=== PATIENT | female | born 1955 | race Caucasian/White ===

== ENCOUNTER 2018-03-15 21:30 | Inpatient (IN) | payer MEDICARE, OTHER ==
[~2018-03-15] VITALS: Ht 165.1 cm; Wt 100.0 kg
[~2018-03-15 21:30] MED LIST changes: -ALBU8.5H8 IH; -BUDESONIDE 0.25 MG/2 ML AMPUL.NEB IH SCH; -CARI6CAP PO; -CLON2TAB11 PO; -LAMO100T40 PO; -LEVO50TA8 PO; -LEVO88TA2 PO; -LORazepam 1 MG tablet PO PRN; -ONDA4TAB12 PO; -QUET200T30 PO; -ROPI2TAB4 PO; -SUMAtriptan 25 MG tablet PO PRN; -TRAM50TA2 PO; -VRAYLAR 6 MG PO ONE; -VRAYLAR 6 MG PO SCH; -albuterol 2.5 MG/3 ML nebule NEB SCH; -clonazePAM 0.5mg tablet PO ONE; -clonazePAM 0.5mg tablet PO SCH; -duloxetine 30mg CAPSULE.DR PO SCH; -levoTHYROXINE 25mcg tablet PO SCH; -quetiapine 100mg tablet PO ONE; -quetiapine 100mg tablet PO SCH; -topiramate 25mg tablet PO ONE; -topiramate 25mg tablet PO SCH
[2018-03-15] MEDS ORDERED: CARI6CAP PO (22:25)
[2018-03-15] MEDS ORDERED: QUET-1 PO (22:25)
[2018-03-15] MEDS ORDERED: LAMO100T40 PO (22:38)
[2018-03-15] MEDS ORDERED: ROPI2TAB4 PO (22:38)
[2018-03-15] MEDS ORDERED: HYDR-3686 PO (22:38)
[2018-03-15] MEDS ORDERED: SUMAtriptan 25 MG tablet PO PRN (22:55)
[2018-03-15] MEDS ORDERED: quetiapine 100mg tablet PO PRN (23:00)
[2018-03-15 23:35] VITALS: BP 146/76
[2018-03-15] MEDS ORDERED: clonazePAM 0.5mg tablet PO ONE (23:40)
[2018-03-15] MEDS ORDERED: VRAYLAR 6 MG PO ONE (23:40)
[2018-03-15] MEDS ORDERED: topiramate 25mg tablet PO ONE (23:45)
[2018-03-15] MEDS ORDERED: ROPINIRole 1mg tablet PO ONE (23:45)
[2018-03-16] MEDS: VRAYLAR 6 MG PO SCH (00:02)
[2018-03-16] MEDS: levoTHYROXINE 25mcg tablet PO SCH (07:39)
[2018-03-16 08:00] VITALS: BP 144/77
[2018-03-16] MEDS ORDERED: duloxetine 30mg CAPSULE.DR PO SCH (08:00)
[2018-03-16] MEDS: BUDESONIDE 0.25 MG/2 ML AMPUL.NEB IH SCH ×2 (08:13→21:00)
[2018-03-16] MEDS: albuterol 2.5 MG/3 ML nebule NEB SCH ×4 (08:13→19:00)
[2018-03-16] MEDS ORDERED: ONDA4TAB12 PO (08:28)
[2018-03-16] MEDS ORDERED: QUET-1 PO ×3 (08:28)
[2018-03-16] MEDS: ROPINIRole 1mg tablet PO SCH ×2 (08:58→20:40)
[2018-03-16] MEDS: topiramate 25mg tablet PO SCH ×2 (08:59→20:40)
[2018-03-16] MEDS ORDERED: ondansetron 4mg rapidly disintigrating tab PO PRN (11:45)
[2018-03-16] MEDS: quetiapine 100mg tablet PO SCH ×2 (14:26→20:39)
[2018-03-16] MEDS ORDERED: acetaminophen 325mg tablet PO PRN (14:40)
[2018-03-16] MEDS: acetaminophen 325mg tablet PO PRN (15:44)
[2018-03-16] MEDS: traMADol 50MG tablet PO PRN (15:45)
[2018-03-16 20:00] VITALS: BP 106/52
[2018-03-16] MEDS ORDERED: PARoxetine 10mg tablet PO SCH (21:00)
[2018-03-16] MEDS ORDERED: clonazePAM 0.5mg tablet PO SCH (21:00)
[2018-03-16] MEDS: clonazePAM 0.5mg tablet PO SCH (21:14)
[2018-03-17] MEDS: albuterol 2.5 MG/3 ML nebule NEB SCH (07:00)
[2018-03-17] MEDS: levoTHYROXINE 25mcg tablet PO SCH (07:12)
[2018-03-17] MEDS: BUDESONIDE 0.25 MG/2 ML AMPUL.NEB IH SCH (07:48)
[2018-03-17 08:00] VITALS: BP 112/73
[2018-03-17] MEDS ORDERED: duloxetine 30mg CAPSULE.DR PO SCH (08:00)
[2018-03-17] MEDS: ROPINIRole 1mg tablet PO SCH ×2 (08:20→21:04)
[2018-03-17] MEDS: quetiapine 100mg tablet PO SCH ×3 (08:21→21:05)
[2018-03-17] MEDS: topiramate 25mg tablet PO SCH ×2 (08:21→21:04)
[2018-03-17] MEDS: traMADol 50MG tablet PO PRN (08:21)
[2018-03-17] MEDS ORDERED: albuterol 2.5 MG/3 ML nebule NEB PRN ×2 (10:15→10:20)
[2018-03-17] MEDS ORDERED: albuterol 2.5 MG/3 ML nebule NEB SCH (10:20)
[2018-03-17] MEDS ORDERED: BUDESONIDE 0.25 MG/2 ML AMPUL.NEB IH PRN (10:20)
[2018-03-17 19:00] VITALS: BP 115/58
[2018-03-17] MEDS: acetaminophen 325mg tablet PO PRN (19:35)
[2018-03-17] MEDS: clonazePAM 0.5mg tablet PO SCH (21:04)
[2018-03-17] MEDS: VRAYLAR 6 MG PO SCH (21:05)
[2018-03-18] MEDS ORDERED: duloxetine 30mg CAPSULE.DR PO SCH (08:00)
[2018-03-18] MEDS: levoTHYROXINE 25mcg tablet PO SCH (08:01)
[2018-03-18] MEDS: ROPINIRole 1mg tablet PO SCH (08:01)
[2018-03-18] MEDS: traMADol 50MG tablet PO PRN (08:02)
[2018-03-18] MEDS: quetiapine 100mg tablet PO SCH ×2 (08:02→14:03)
[2018-03-18] MEDS: topiramate 25mg tablet PO SCH (08:02)
[2018-03-18 08:45] VITALS: BP 108/72
[2018-03-18 08:46] LABS: CHOL/HDL RATIO 4.5 (0.00-4.99); CHOLESTEROL 218 MG/DL (0-200); HDL CHOLESTEROL 48 MG/DL (35-60); LDL CHOLESTEROL 143 MG/DL (50-100); TRIGLYCERIDES 180 MG/DL (20-135)
[2018-03-18] MEDS ORDERED: QUET-1 PO (14:07)
[2018-03-18] MEDS ORDERED: ADV50250 IH (14:10)
[2018-03-18] MEDS ORDERED: LEVO88TA2 PO (14:12)
[2018-03-18] MEDS ORDERED: LEVO50TA8 PO (14:14)
[2018-03-18] MEDS ORDERED: ALBU8.5H8 IH (14:16)
[2018-03-18] MEDS ORDERED: TRAM50TA2 PO (14:19)
[2018-03-18] MEDS ORDERED: QUET200T30 PO (14:19)
[2018-03-18] MEDS ORDERED: TOPI50TA24 PO (14:19)
[2018-03-18] MEDS ORDERED: CLON2TAB11 PO (14:19)
== END 2018-03-18 14:35 | disposition home or self-care (01) | DRG 885 ==
LOC: ED HOLD 21:30 → ADULT MH 22:05
PROVIDERS: ADMIT Psychiatry & Neurology Psychiatry; ATTEND Psychiatry & Neurology Psychiatry
DX: F25.1 Schizoaffective disorder, depressive type (principal); R45.851 Suicidal ideations; E03.9 Hypothyroidism, unspecified; F44.81 Dissociative identity disorder; E66.9 Obesity, unspecified; E78.5 Hyperlipidemia, unspecified; F31.9 Bipolar disorder, unspecified; Z96.653 Presence of artificial knee joint, bilateral; G25.81 Restless legs syndrome; S30.0XXA Contusion of lower back and pelvis, initial encounter; G43.909 Migraine, unspecified, not intractable, without status migrainosus; M19.90 Unspecified osteoarthritis, unspecified site; X58.XXXA Exposure to other specified factors, initial encounter; F41.9 Anxiety disorder, unspecified; J44.9 Chronic obstructive pulmonary disease, unspecified; Z90.5 Acquired absence of kidney; Z91.041 Radiographic dye allergy status; Z91.010 Allergy to peanuts; Z88.0 Allergy status to penicillin; Z88.8 Allergy status to other drugs, medicaments and biological substances; Z91.018 Allergy to other foods; Z23 Encounter for immunization; Z79.890 Hormone replacement therapy; Z79.899 Other long term (current) drug therapy; Z85.528 Personal history of other malignant neoplasm of kidney; Z68.36 Body mass index [BMI] 36.0-36.9, adult; Y93.89 Activity, other specified; Y92.89 Other specified places as the place of occurrence of the external cause; Y99.8 Other external cause status
CPT/HCPCS: 36415; 80061; 84443; 87070; 94640; 94760; Q2037

== ENCOUNTER → 2018-03-15 | Emergency (ER) | payer MEDICARE, OTHER ==
[~2018-03-15] VITALS: Ht 195.6 cm; Wt 95.0 kg
[~2018-03-15] MED LIST: ADV50250 IH; ALBU8.5H8 IH; BUDESONIDE 0.25 MG/2 ML AMPUL.NEB IH SCH; CARI6CAP; CARI6CAP PO; CLON-527 PO; CLON-528 PO; CLON2TAB11 PO; DULO-31 PO; ELET40TA10 PO; EZET1TAB29 PO; FLUT1DIS4 INH; HYDR-3686 PO; LAMO100T40 PO; LAMO200T31 PO; LEVO50TA PO; LEVO50TA67 PO; LEVO50TA8 PO; LEVO88TA2 PO; LORazepam 1 MG tablet PO PRN; MONT10TA21 PO; ONDA4TAB12 PO; QUET-1 PO; QUET200T30 PO; ROPI0.5T2 PO; ROPI1TAB4 PO; ROPI2TAB4 PO; SUMAtriptan 25 MG tablet PO PRN; TIOT18CA7 IH; TOP100T PO; TOPI50TA24 PO; TRAM50TA2 PO; VRAYLAR 6 MG PO ONE; VRAYLAR 6 MG PO SCH; ZOF4T PO; ZOLP12.531 PO; albuterol 2.5 MG/3 ML nebule NEB SCH; clonazePAM 0.5mg tablet PO ONE; clonazePAM 0.5mg tablet PO SCH; duloxetine 30mg CAPSULE.DR PO SCH; levoTHYROXINE 25mcg tablet PO SCH; quetiapine 100mg tablet PO ONE; quetiapine 100mg tablet PO SCH; topiramate 25mg tablet PO ONE; topiramate 25mg tablet PO SCH
[2018-03-15] MEDS: LORazepam 1 MG tablet PO ONE (13:20)
[2018-03-15 13:27] LABS: URINE HCG NEGATIVE (NEG)
[2018-03-15 13:38] LABS: URINE AMPHETAMINE SCREEN NEGATIVE (Neg); URINE BARBITUATE SCREEN NEGATIVE (Neg); URINE BENZODIAZEPINES SCREEN NEGATIVE (Neg); URINE CANNABINOID SCREEN NEGATIVE (Neg); URINE COCAINE SCREEN NEGATIVE (Neg); URINE METHADONE SCREEN NEGATIVE (Neg); URINE OPIATE SCREEN NEGATIVE (Neg); URINE PHENCYCLIDINE SCREEN NEGATIVE (Neg)
[2018-03-15 13:43] LABS: BASOPHILS % (AUTO) 0.4 % (0-1); EOSINOPHILS # (AUTO) 0.1 X10'3 (0-0.9); EOSINOPHILS % (AUTO) 1.5 % (0-6); HEMATOCRIT 35.3 % (35.0-45.0); HEMOGLOBIN 11.7 g/dl (12.0-16.0); LYMPHOCYTES # (AUTO) 0.9 X10'3 (1.1-4.8); LYMPHOCYTES % (AUTO) 18.1 % (21-51); MEAN CORPUSCULAR HEMOGLOBIN 27.6 PG (27.0-31.0); MEAN CORPUSCULAR HGB CONC 33.1 % (33.0-36.5); MEAN CORPUSCULAR VOLUME 83.4 FL (78-98); MEAN PLATELET VOLUME 6.9 FL (7.4-10.4); MONOCYTES # (AUTO) 0.4 X10'3 (0-0.9); MONOCYTES % (AUTO) 8.1 % (2-12); NEUTROPHILS # (AUTO) 3.4 X10'3 (1.8-7.7); NEUTROPHILS % (AUTO) 71.9 % (42-75); PLATELET COUNT 338 X10'3 (140-440); RED BLOOD COUNT 4.23 X10'6 (4.20-5.60); RED CELL DISTRIBUTION WIDTH 14.9 % (11.5-14.5); WHITE BLOOD COUNT 4.8 X10'3 (4.5-11.0)
[2018-03-15 13:56] LABS: ALANINE AMINOTRANSFERASE 17 U/L (12-78); ALBUMIN 3.4 G/DL (3.4-5.0); ALKALINE PHOSPHATASE 105 IU/L (46-116); ANION GAP 9 (8-16); ASPARTATE AMINO TRANSFERASE 14 U/L (10-37); BILIRUBIN,TOTAL 0.3 MG/DL (0.1-1.0); BLOOD UREA NITROGEN 21 MG/DL (7-18); BUN/CREATININE RATIO 14.8 (6.6-38.0); CALCIUM 8.8 MG/DL (8.5-10.1); CHLORIDE 104 MMOL/L (99-107); CREATININE 1.42 MG/DL (0.40-0.90); ETHANOL < 0.010 GM/DL (0.0-0.010); GLUCOSE 108 MG/DL (70-104); POTASSIUM 4.3 MMOL/L (3.5-5.1); SODIUM 139 MMOL/L (135-145); TOTAL CARBON DIOXIDE 25.7 MMOL/L (24-32); TOTAL PROTEIN 6.9 G/DL (6.4-8.2); eGFR 37 ML/MIN
[2018-03-15] MEDS: mag hydrox/Alum hydrox/simeth 30ml oral suspension PO ONE (14:06)
[2018-03-15 14:42] LABS: COLOR,URINE YELLOW (Yellow); GLUCOSE, URINE NEGATIVE (Neg); KETONES,URINE NEGATIVE (Neg); LEUKOCYTE ESTERASE ,URINE SMALL (Neg); NITRITES, URINE NEGATIVE (Neg); OCCULT BLOOD,URINE NEGATIVE (Neg); PH,URINE 5.5 (4.8-8.0); PROTEIN,URINE NEGATIVE (Neg); UROBILINOGEN,URINE 0.2 E.U/dL (0.2-1.0)
[2018-03-15 14:56] LABS: CLARITY,URINE SLIGHTLY CLOUDY (Clear); UA COLLECTION TYPE CLN CATCH MIDSTREAM
[2018-03-15 15:00] LABS: BACTERIA,URINE FEW /HPF (Neg); RBC,URINE NONE SEEN /HPF (0-2); SQUAMOUS EPITHELIAL CELL,UR FEW /LPF (FEW); TRANSITIONAL EPI CELLS,URINE FEW /HPF; WBC,URINE 0-4 /HPF (0-4)
[2018-03-15 18:04] VITALS: BP 111/60
== END ==
LOC: ER 12:04
DX: R45.851 Suicidal ideations (principal); F31.9 Bipolar disorder, unspecified; Z79.899 Other long term (current) drug therapy; Z88.0 Allergy status to penicillin; Z88.2 Allergy status to sulfonamides; Z88.5 Allergy status to narcotic agent; Z91.010 Allergy to peanuts
CPT/HCPCS: 36415; 80053; 80305; 80320; 81001; 81025; 85025; 87088; 99285

== ENCOUNTER 2018-10-02 16:05 | Emergency (ER) | payer MEDICARE, OTHER ==
[~2018-10-02] VITALS: Ht 165.1 cm; Wt 93.2 kg
[~2018-10-02 16:05] MED LIST changes: +ALBU8.5H8 IH; -CARI6CAP; +CARI6CAP PO; -CLON-527 PO; -CLON-528 PO; +CLON2TAB11 PO; -EZET1TAB29 PO; -FLUT1DIS4 INH; +LAMO100T40 PO; -LAMO200T31 PO; -LEVO50TA PO; -LEVO50TA67 PO; +LEVO50TA8 PO; -MONT10TA21 PO; +QUET200T30 PO; -ROPI0.5T2 PO; -ROPI1TAB4 PO; +ROPI2TAB4 PO; -TIOT18CA7 IH; -TOP100T PO; +TRAM50TA2 PO; -ZOF4T PO; -ZOLP12.531 PO
[2018-10-02 16:50] LABS: BASOPHILS % (AUTO) 0.9 % (0-1); EOSINOPHILS # (AUTO) 0.3 X10'3 (0-0.9); EOSINOPHILS % (AUTO) 5.7 % (0-6); HEMATOCRIT 35.7 % (35.0-45.0); HEMOGLOBIN 11.8 g/dl (12.0-16.0); LYMPHOCYTES # (AUTO) 1.6 X10'3 (1.1-4.8); LYMPHOCYTES % (AUTO) 35.4 % (21-51); MEAN CORPUSCULAR HEMOGLOBIN 27.9 PG (27.0-31.0); MEAN CORPUSCULAR HGB CONC 33.1 g/dL (33.0-36.5); MEAN CORPUSCULAR VOLUME 84.4 FL (78-98); MEAN PLATELET VOLUME 7.7 FL (7.4-10.4); MONOCYTES # (AUTO) 0.5 X10'3 (0-0.9); NEUTROPHILS # (AUTO) 2.2 X10'3 (1.8-7.7); PLATELET COUNT 224 X10'3 (140-440); RED BLOOD COUNT 4.23 X10'6 (4.20-5.60); RED CELL DISTRIBUTION WIDTH 15.7 % (11.5-14.5); WHITE BLOOD COUNT 4.5 X10'3 (4.5-11.0)
[2018-10-02 16:56] LABS: ALANINE AMINOTRANSFERASE 25 U/L (12-78); ALBUMIN 3.6 G/DL (3.4-5.0); ALBUMIN/GLOBULIN RATIO 1.1 (1.1-1.5); ALKALINE PHOSPHATASE 91 IU/L (46-116); ANION GAP 9 (8-16); ASPARTATE AMINO TRANSFERASE 17 U/L (10-37); BILIRUBIN,TOTAL 0.3 MG/DL (0.1-1.0); BLOOD UREA NITROGEN 16 MG/DL (7-18); CALCIUM 9.1 MG/DL (8.5-10.1); CHLORIDE 106 MMOL/L (99-107); CREATININE 1.33 MG/DL (0.40-0.90); GLUCOSE 108 MG/DL (70-104); POTASSIUM 4.3 MMOL/L (3.5-5.1); SODIUM 140 MMOL/L (135-145); TOTAL CARBON DIOXIDE 25.5 MMOL/L (24-32); TOTAL PROTEIN 6.9 G/DL (6.4-8.2); eGFR 40 ML/MIN
[2018-10-02 17:11] LABS: ETHANOL < 0.010 GM/DL (0.0-0.010)
[2018-10-02 17:13] LABS: CLARITY,URINE CLEAR (Clear); COLOR,URINE STRAW (Yellow); GLUCOSE, URINE NEGATIVE (Neg); KETONES,URINE NEGATIVE (Neg); LEUKOCYTE ESTERASE ,URINE NEGATIVE (Neg); NITRITES, URINE NEGATIVE (Neg); OCCULT BLOOD,URINE NEGATIVE (Neg); PROTEIN,URINE NEGATIVE (Neg); UROBILINOGEN,URINE 0.2 E.U/dL (0.2-1.0)
[2018-10-02 17:15] LABS: UA COLLECTION TYPE CLN CATCH MIDSTREAM
[2018-10-02 17:23] LABS: URINE AMPHETAMINE SCREEN NEGATIVE (Neg); URINE BARBITUATE SCREEN NEGATIVE (Neg); URINE BENZODIAZEPINES SCREEN NEGATIVE (Neg); URINE CANNABINOID SCREEN NEGATIVE (Neg); URINE COCAINE SCREEN NEGATIVE (Neg); URINE METHADONE SCREEN NEGATIVE (Neg); URINE OPIATE SCREEN NEGATIVE (Neg); URINE PHENCYCLIDINE SCREEN NEGATIVE (Neg)
[2018-10-02] MEDS ORDERED: BENZ1TAB7 PO (17:24)
[2018-10-02] MEDS ORDERED: HYDR-3686 PO (17:26)
[2018-10-02] MEDS ORDERED: LAMO100T40 PO (17:26)
[2018-10-02] MEDS ORDERED: quetiapine 100mg tablet PO SCH (18:08)
[2018-10-02 18:13] VITALS: BP 136/62
[2018-10-02] MEDS ORDERED: ROPINIRole 1mg tablet PO SCH (20:00)
[2018-10-02] MEDS ORDERED: benztropine 1mg tablet PO SCH (20:00)
[2018-10-02] MEDS ORDERED: clonazePAM 1mg tablet PO SCH (21:00)
[2018-10-02] MEDS ORDERED: hydrOXYzine 25 MG tablet PO SCH (21:00)
[2018-10-02] MEDS ORDERED: lamoTRIgine 100mg tablet PO SCH (21:00)
[2018-10-02] MEDS ORDERED: CARIPRAZINE 1.5 MG CAPSULE PO SCH (21:00)
[2018-10-02] MEDS ORDERED: QUETIAPINE FUMARATE PO SCH (21:00)
[2018-10-03] MEDS ORDERED: levoTHYROXINE 25mcg tablet PO SCH (07:30)
[2018-10-03] MEDS ORDERED: duloxetine 30mg CAPSULE.DR PO SCH ×2 (08:00)
== END 2018-10-02 20:02 | disposition home or self-care (01) ==
LOC: ER 16:05
DX: F31.9 Bipolar disorder, unspecified (principal); F20.0 Paranoid schizophrenia; Z79.899 Other long term (current) drug therapy; Z88.0 Allergy status to penicillin; Z88.2 Allergy status to sulfonamides; Z88.5 Allergy status to narcotic agent; Z91.010 Allergy to peanuts
CPT/HCPCS: 36415; 80053; 80305; 80320; 81003; 84443; 85025; 99284

== ENCOUNTER 2019-03-15 18:58 | Emergency (ER) | payer MEDICARE, OTHER ==
[~2019-03-15] VITALS: Ht 162.6 cm; Wt 83.2 kg
[~2019-03-15 18:58] MED LIST changes: -ADV50250 IH; -ALBU8.5H8 IH; +BENZ1TAB7 PO; -ELET40TA10 PO; -TOPI50TA24 PO; -TRAM50TA2 PO
[2019-03-15] MEDS ORDERED: ondansetron 4mg rapidly disintigrating tab PO ONE (21:05)
== END 2019-03-15 21:18 | disposition home or self-care (01) ==
LOC: ER 18:59
DX: S62.102A Fracture of unspecified carpal bone, left wrist, initial encounter for closed fracture (principal); Z79.899 Other long term (current) drug therapy; Z88.0 Allergy status to penicillin; Z88.2 Allergy status to sulfonamides; Z88.5 Allergy status to narcotic agent; Z91.010 Allergy to peanuts; Z91.018 Allergy to other foods; W22.8XXA Striking against or struck by other objects, initial encounter; Y93.89 Activity, other specified; Y92.89 Other specified places as the place of occurrence of the external cause; Y99.9 Unspecified external cause status
CPT/HCPCS: 29125; 73080; 73130; 99283

== ENCOUNTER 2019-03-21 09:37 | Outpatient (CLI) | payer MEDICARE, OTHER | END 2019-03-21 10:15 | disposition home or self-care (01) | LOC: ORTHO 09:37 | PROVIDERS: ATTEND Nurse Practitioner | DX: S67.32XA Crushing injury of left wrist, initial encounter (principal); M19.032 Primary osteoarthritis, left wrist; J45.909 Unspecified asthma, uncomplicated; W18.40XA Slipping, tripping and stumbling without falling, unspecified, initial encounter; W22.8XXA Striking against or struck by other objects, initial encounter; Y93.89 Activity, other specified; Y92.89 Other specified places as the place of occurrence of the external cause; Y99.8 Other external cause status | CPT/HCPCS: G0463 ==

== ENCOUNTER 2019-04-16 17:39 | Emergency (ER) | payer MEDICARE, OTHER ==
[~2019-04-16] VITALS: Ht 165.1 cm; Wt 90.0 kg
[2019-04-16] MEDS ORDERED: methylPREDNISolone sod succ 125mg/2ml vial IV ONE (18:35)
[2019-04-16] MEDS ORDERED: normal saline 1000ML IV soln IV ONE (18:35)
[2019-04-16] MEDS ORDERED: ipratropium/albuterol 3ml nebule NEB ONE (18:35)
[2019-04-16 19:14] LABS: BASOPHILS % (AUTO) 0.7 % (0-1); EOSINOPHILS # (AUTO) 0.2 X10'3 (0-0.9); EOSINOPHILS % (AUTO) 3.5 % (0-6); HEMATOCRIT 35.7 % (35.0-45.0); LYMPHOCYTES # (AUTO) 1.8 X10'3 (1.1-4.8); LYMPHOCYTES % (AUTO) 26.4 % (21-51); MEAN CORPUSCULAR HEMOGLOBIN 27.9 PG (27.0-31.0); MEAN CORPUSCULAR HGB CONC 33.5 g/dL (33.0-36.5); MEAN CORPUSCULAR VOLUME 83.4 FL (78-98); MEAN PLATELET VOLUME 7.8 FL (7.4-10.4); MONOCYTES # (AUTO) 0.6 X10'3 (0-0.9); NEUTROPHILS % (AUTO) 60.4 % (42-75); PLATELET COUNT 273 X10'3 (140-440); RED BLOOD COUNT 4.28 X10'6 (4.20-5.60); RED CELL DISTRIBUTION WIDTH 16.9 % (11.5-14.5); WHITE BLOOD COUNT 6.7 X10'3 (4.5-11.0)
[2019-04-16 19:19] LABS: ALANINE AMINOTRANSFERASE 27 U/L (12-78); ALBUMIN 3.8 G/DL (3.4-5.0); ALBUMIN/GLOBULIN RATIO 1.2 (1.1-1.5); ALKALINE PHOSPHATASE 103 IU/L (46-116); ANION GAP 6 (8-16); ASPARTATE AMINO TRANSFERASE 18 U/L (10-37); BILIRUBIN,TOTAL 0.3 MG/DL (0.1-1.0); BLOOD UREA NITROGEN 17 MG/DL (7-18); BUN/CREATININE RATIO 12.4 (6.6-38.0); CHLORIDE 103 MMOL/L (99-107); CREATININE 1.37 MG/DL (0.40-0.90); GLUCOSE 95 MG/DL (70-104); POTASSIUM 3.7 MMOL/L (3.5-5.1); SODIUM 138 MMOL/L (135-145); TOTAL CARBON DIOXIDE 29.5 MMOL/L (24-32); TOTAL PROTEIN 6.9 G/DL (6.4-8.2); eGFR 39 ML/MIN
[2019-04-16] MEDS ORDERED: albuterol 2.5 MG/3 ML nebule NEB ONE (19:35)
[2019-04-16] MEDS ORDERED: GUAI-647 PO (19:37)
[2019-04-16] MEDS ORDERED: ALBU8.5H8 INH (19:37)
[2019-04-16] MEDS ORDERED: PRED20TA PO (19:37)
[2019-04-16] MEDS ORDERED: DOXY100C43 PO (19:37)
[2019-04-16 20:14] VITALS: BP 124/74
== END 2019-04-16 20:16 | disposition home or self-care (01) ==
LOC: ER 17:39
DX: J45.901 Unspecified asthma with (acute) exacerbation (principal); H92.03 Otalgia, bilateral; F31.9 Bipolar disorder, unspecified; F20.9 Schizophrenia, unspecified; Z87.891 Personal history of nicotine dependence; Z88.0 Allergy status to penicillin; Z88.2 Allergy status to sulfonamides; Z91.010 Allergy to peanuts; Z88.8 Allergy status to other drugs, medicaments and biological substances; Z79.899 Other long term (current) drug therapy
CPT/HCPCS: 36415; 71045; 80053; 83605; 84145; 85025; 87040; 93005; 94640; 96374; 99284; J2930; J7030; J7040; 94760

== ENCOUNTER 2019-05-04 10:17 | Emergency (ER) | payer MEDICARE, OTHER ==
[~2019-05-04] VITALS: Ht 165.1 cm; Wt 81.0 kg
[~2019-05-04 10:17] MED LIST changes: +ALBU8.5H8 INH
[2019-05-04 10:27] VITALS: BP 119/57
--- NOTE | 2019-05-04 11:06 | NUR ---
saray lao case # [id number] spoke to Zandra.
[2019-05-04 11:14] LABS: BASOPHILS % (AUTO) 0.7 % (0-1); EOSINOPHILS # (AUTO) 0.2 X10'3 (0-0.9); EOSINOPHILS % (AUTO) 3.9 % (0-6); HEMATOCRIT 33.6 % (35.0-45.0); HEMOGLOBIN 11.1 g/dl (12.0-16.0); LYMPHOCYTES % (AUTO) 23.5 % (21-51); MEAN CORPUSCULAR HEMOGLOBIN 27.9 PG (27.0-31.0); MEAN CORPUSCULAR HGB CONC 33.1 g/dL (33.0-36.5); MEAN CORPUSCULAR VOLUME 84.2 FL (78-98); MEAN PLATELET VOLUME 7.5 FL (7.4-10.4); MONOCYTES # (AUTO) 0.5 X10'3 (0-0.9); MONOCYTES % (AUTO) 11.6 % (2-12); NEUTROPHILS # (AUTO) 2.7 X10'3 (1.8-7.7); NEUTROPHILS % (AUTO) 60.3 % (42-75); PLATELET COUNT 232 X10'3 (140-440); RED BLOOD COUNT 3.98 X10'6 (4.20-5.60); RED CELL DISTRIBUTION WIDTH 17.1 % (11.5-14.5); WHITE BLOOD COUNT 4.5 X10'3 (4.5-11.0)
--- NOTE | 2019-05-04 11:17 | NUR ---
patient to ct.
[2019-05-04 11:29] LABS: ALANINE AMINOTRANSFERASE 20 U/L (12-78); ALBUMIN 3.4 G/DL (3.4-5.0); ALBUMIN/GLOBULIN RATIO 1.1 (1.1-1.5); ALKALINE PHOSPHATASE 93 IU/L (46-116); ANION GAP 1 (8-16); ASPARTATE AMINO TRANSFERASE 13 U/L (10-37); BILIRUBIN,TOTAL 0.3 MG/DL (0.1-1.0); BLOOD UREA NITROGEN 16 MG/DL (7-18); BUN/CREATININE RATIO 11.5 (6.6-38.0); CALCIUM 8.8 MG/DL (8.5-10.1); CHLORIDE 111 MMOL/L (99-107); CREATININE 1.39 MG/DL (0.40-0.90); GLUCOSE 93 MG/DL (70-104); POTASSIUM 4.5 MMOL/L (3.5-5.1); SODIUM 144 MMOL/L (135-145); TOTAL CARBON DIOXIDE 31.9 MMOL/L (24-32); TOTAL PROTEIN 6.6 G/DL (6.4-8.2); eGFR 38 ML/MIN
--- NOTE | 2019-05-04 11:29 | NUR ---
patient back in the room from ct.
--- NOTE | 2019-05-04 11:39 | NUR ---
preceptor for PEDRO Wong.
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
== END 2019-05-04 12:01 | disposition home or self-care (01) ==
LOC: ER 10:18
DX: R51 Headache (principal); R42 Dizziness and giddiness; F44.9 Dissociative and conversion disorder, unspecified; J45.909 Unspecified asthma, uncomplicated; F31.9 Bipolar disorder, unspecified; F20.9 Schizophrenia, unspecified; Z98.890 Other specified postprocedural states; Z88.0 Allergy status to penicillin; Z88.2 Allergy status to sulfonamides; Z88.5 Allergy status to narcotic agent; Z91.010 Allergy to peanuts; Z91.018 Allergy to other foods; Z79.899 Other long term (current) drug therapy
CPT/HCPCS: 36415; 70450; 80053; 85025; 99284

== ENCOUNTER 2019-05-24 18:05 | Emergency (ER) | payer MEDICARE, OTHER ==
[~2019-05-24] VITALS: Ht 165.1 cm; Wt 75.0 kg
[2019-05-24 18:44] VITALS: BP 157/87
[2019-05-24] MEDS ORDERED: HYDROcodone/acetaminophen 5mg/325mg tablet PO ONE (20:50)
== END 2019-05-24 20:57 | disposition home or self-care (01) ==
LOC: ER 18:06
DX: S60.222A Contusion of left hand, initial encounter (principal); J45.909 Unspecified asthma, uncomplicated; F31.9 Bipolar disorder, unspecified; F20.9 Schizophrenia, unspecified; Z98.890 Other specified postprocedural states; Z88.0 Allergy status to penicillin; Z88.2 Allergy status to sulfonamides; Z88.8 Allergy status to other drugs, medicaments and biological substances; Z91.018 Allergy to other foods; Z79.899 Other long term (current) drug therapy; W22.8XXA Striking against or struck by other objects, initial encounter; Y93.89 Activity, other specified; Y92.89 Other specified places as the place of occurrence of the external cause; Y99.8 Other external cause status
CPT/HCPCS: 29125; 73130; 99284

== ENCOUNTER 2019-06-26 07:41 | Emergency (ER) | payer MEDICARE, OTHER ==
[~2019-06-26] VITALS: Ht 165.1 cm; Wt 90.0 kg
[2019-06-26 07:42] VITALS: BP 146/68
== END 2019-06-26 09:44 | disposition home or self-care (01) ==
LOC: ER 07:41
DX: M79.642 Pain in left hand (principal); J45.909 Unspecified asthma, uncomplicated; F31.9 Bipolar disorder, unspecified; F20.9 Schizophrenia, unspecified; Z88.0 Allergy status to penicillin; Z88.2 Allergy status to sulfonamides; Z91.018 Allergy to other foods; Z88.8 Allergy status to other drugs, medicaments and biological substances; Z79.899 Other long term (current) drug therapy; W01.0XXA Fall on same level from slipping, tripping and stumbling without subsequent striking against object, initial encounter; Y93.89 Activity, other specified; Y92.090 Kitchen in other non-institutional residence as the place of occurrence of the external cause; Y99.8 Other external cause status
CPT/HCPCS: 73130; 99284

== ENCOUNTER 2019-07-02 17:58 | Observation (INO) | payer MEDICARE, OTHER ==
[~2019-07-02] VITALS: Ht 165.1 cm; Wt 80.9 kg
[2019-07-02 19:48] LABS: BASOPHILS # (AUTO) 0.1 X10'3 (0-0.2); BASOPHILS % (AUTO) 1.1 % (0-1); EOSINOPHILS # (AUTO) 0.3 X10'3 (0-0.9); EOSINOPHILS % (AUTO) 5.5 % (0-6); HEMATOCRIT 38.9 % (35.0-45.0); LYMPHOCYTES # (AUTO) 2.1 X10'3 (1.1-4.8); LYMPHOCYTES % (AUTO) 34.9 % (21-51); MEAN CORPUSCULAR HEMOGLOBIN 28.7 PG (27.0-31.0); MEAN CORPUSCULAR HGB CONC 33.3 g/dL (33.0-36.5); MEAN CORPUSCULAR VOLUME 86.1 FL (78-98); MONOCYTES # (AUTO) 0.6 X10'3 (0-0.9); MONOCYTES % (AUTO) 10.2 % (2-12); NEUTROPHILS # (AUTO) 2.9 X10'3 (1.8-7.7); NEUTROPHILS % (AUTO) 48.3 % (42-75); PLATELET COUNT 284 X10'3 (140-440); RED BLOOD COUNT 4.51 X10'6 (4.20-5.60); RED CELL DISTRIBUTION WIDTH 17.4 % (11.5-14.5)
[2019-07-02 19:58] LABS: ALANINE AMINOTRANSFERASE 18 U/L (12-78); ALBUMIN 4.2 G/DL (3.4-5.0); ALBUMIN/GLOBULIN RATIO 1.1 (1.1-1.5); ALKALINE PHOSPHATASE 108 IU/L (46-116); ANION GAP 9 (8-16); ASPARTATE AMINO TRANSFERASE 18 U/L (10-37); BILIRUBIN,TOTAL 0.5 MG/DL (0.1-1.0); BLOOD UREA NITROGEN 15 MG/DL (7-18); BUN/CREATININE RATIO 9.5 (6.6-38.0); CALCIUM 10.1 MG/DL (8.5-10.1); CHLORIDE 106 MMOL/L (99-107); CREATININE 1.58 MG/DL (0.40-0.90); GLUCOSE 106 MG/DL (70-104); POTASSIUM 4.2 MMOL/L (3.5-5.1); SODIUM 143 MMOL/L (135-145); TOTAL CARBON DIOXIDE 28.1 MMOL/L (24-32); eGFR 33 ML/MIN
[2019-07-02 19:59] LABS: CLARITY,URINE SLIGHTLY CLOUDY (Clear); COLOR,URINE YELLOW (Yellow); GLUCOSE, URINE NEGATIVE (Neg); KETONES,URINE NEGATIVE (Neg); LEUKOCYTE ESTERASE ,URINE SMALL (Neg); NITRITES, URINE NEGATIVE (Neg); OCCULT BLOOD,URINE NEGATIVE (Neg); PH,URINE 5.5 (4.8-8.0); PROTEIN,URINE TRACE mg/dl (Neg); UROBILINOGEN,URINE 0.2 E.U/dL (0.2-1.0)
[2019-07-02 20:06] LABS: UA COLLECTION TYPE CLN CATCH MIDSTREAM
[2019-07-02 20:07] LABS: ETHANOL < 0.010 GM/DL (0.0-0.010)
[2019-07-02 20:09] LABS: BACTERIA,URINE NONE SEEN /HPF (Neg); SQUAMOUS EPITHELIAL CELL,UR MODERATE /LPF (FEW); WBC,URINE 30-50 /HPF (0-4)
[2019-07-02 20:10] LABS: MUCUS STRANDS FEW /LPF (Neg); TRANSITIONAL EPI CELLS,URINE FEW /HPF; WBC CLUMPS,URINE FEW /HPF (NEGATIVE)
[2019-07-02 20:12] LABS: URINE AMPHETAMINE SCREEN NEGATIVE (Neg); URINE BARBITUATE SCREEN NEGATIVE (Neg); URINE BENZODIAZEPINES SCREEN NEGATIVE (Neg); URINE CANNABINOID SCREEN NEGATIVE (Neg); URINE COCAINE SCREEN NEGATIVE (Neg); URINE METHADONE SCREEN NEGATIVE (Neg); URINE OPIATE SCREEN NEGATIVE (Neg); URINE PHENCYCLIDINE SCREEN NEGATIVE (Neg)
[2019-07-02 20:47] LABS: PARTIAL THROMBOPLASTIN TIME 30 SECONDS (22-32)
[2019-07-02 20:56] LABS: MAGNESIUM 2.7 MG/DL (1.5-2.4)
[2019-07-02 21:18] LABS: D-DIMER 0.83 MG/L FEU (0-0.50)
[2019-07-02] MEDS ORDERED: normal saline 1000ML IV soln IVB ONE (21:30)
[2019-07-02] MEDS ORDERED: levoFLOXACIN-Levaquin 250mg/D5 50 ML IV ONE (21:35)
[2019-07-03] MEDS ORDERED: ziprasidone IM 20mg inj **IM only IM ONE (01:00)
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
[2019-07-03] MEDS ORDERED: potassium Cl 20 mEq SR tablet PO PRN ×2 (02:00)
[2019-07-03] MEDS ORDERED: ondansetron/PF 4mg/2ml inj IV PRN (02:00)
[2019-07-03] MEDS ORDERED: acetaminophen 325mg tablet PO PRN (02:00)
[2019-07-03] MEDS ORDERED: potassium CL 10mEq/100ml bag 100 ML IV PRN ×2 (02:00)
--- NOTE | 2019-07-03 02:50 | NUR ---
PT ARRIVED FROM ER. PT HAS BEEN ORIENTED TO THE ROOM. PT IS CALM RIGHT NOW. VSS. RECEIVED REPORT FROM PEDRO ESTRELLA PRIOR TO PT'S ARRIVAL
[2019-07-03 02:55] VITALS: BP 141/78
[2019-07-03] MEDS ORDERED: albuterol 2.5 MG/3 ML nebule NEB PRN (03:40)
[2019-07-03] MEDS: normal saline 1000ml 1,000 ML IV SCH ×2 (03:45→14:01)
[2019-07-03 06:00] VITALS: BP 113/56
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
--- NOTE | 2019-07-03 06:39 | NUR ---
Problems reprioritized. Patient report given, questions answered & plan of care reviewed with PEDRO WOLFE.
--- NOTE | 2019-07-03 07:04 | NUR ---
Patient in room ORTHO 4023B. I have received report from PEDRO RAGLAND and had the opportunity to ask questions and assume patient care.
[2019-07-03] MEDS ORDERED: levoTHYROXINE 25mcg tablet PO SCH (08:00)
[2019-07-03] MEDS ORDERED: K and/or MAG REPLACEMENT MC SCH (08:00)
[2019-07-03] MEDS ORDERED: docusate sod 100mg capsule PO SCH (08:00)
[2019-07-03] MEDS ORDERED: enoxaparin 40mg/0.4ml syringe SQ SCH (08:00)
[2019-07-03] MEDS ORDERED: duloxetine 30mg CAPSULE.DR PO SCH (08:00)
[2019-07-03] MEDS ORDERED: normal saline 1000ml 1,000 ML IV ONE (09:05)
[2019-07-03 10:00] VITALS: BP 116/54
[2019-07-03] MEDS ORDERED: levoFLOXACIN 500mg tablet PO SCH (11:00)
--- NOTE | 2019-07-03 18:21 | NUR ---
PAGER ID: [phone] MESSAGE: YANETH 5430-RE: FRANK MAK [id number]...[facility] EVAL PT. PT DOES NOT MEET CRITERIA FOR 5150,PT HAS APPT W/ DR. RIDDLE TOMORROW, PROGRESS NOTE IN CHART, OK TO DC PT
[2019-07-03 18:30] VITALS: BP 117/72
--- NOTE | 2019-07-03 18:30 | NUR ---
Patient in room ORTHO 4023. I have received report from and had the opportunity to ask questions and assume patient care.
[2019-07-03] MEDS ORDERED: LEVO500T89 PO (18:40)
[2019-07-03] MEDS ORDERED: ASPI-611 PO (18:40)
--- NOTE | 2019-07-03 18:43 | NUR ---
Problems reprioritized. Patient report given, questions answered & plan of care reviewed with PEDRO HAMILTON.
--- NOTE | 2019-07-03 19:46 | NUR ---
DC ORDERS REC'D. DC INSTRUCTIONS REVIEWED WITH PT. SHE VERBALIZED MED SCHEDULE FOR NEW MEDS. PHARMACY HAS ALREADY CALLED HER FOR MEDS BEING READY. WAITING ON RIDE. PT GETTING DRESSED. DC INSTRUCTIONS SIGNED. WILL DC IV WHEN SPOUSE HER TO PICK HER UP.
[2019-07-03] MEDS ORDERED: lactobacillus rhamnosus 10,000 MMU CELLS/CAPSULE PO SCH (20:00)
[2019-07-03] MEDS ORDERED: LAMOTRIGINE 150 MG PO SCH (21:00)
[2019-07-03] MEDS ORDERED: CARIPRAZINE 1.5 MG CAPSULE PO SCH (21:00)
[2019-07-04] MEDS ORDERED: levoTHYROXINE 100mcg tablet PO SCH (08:00)
[2019-07-04] MEDS ORDERED: LEVO100T9 PO (10:04)
--- NOTE | 2019-07-04 12:58 | NUR ---
per Dr. James, pts TSH is elevated, would like pt to take levothyroxine 100mcg and recheck TSH with PCP in 3-4 weeks. Levothyroxine was submitted electronically to pharmacy. Called pt and told her about TSH and new rx for Levothyroxine and to f/u with PCP to recheck TSH in 3-4 wks. pt acknowledged understanding.
== END 2019-07-03 20:18 | disposition home or self-care (01) ==
LOC: ER 17:58 → ED HOLD 07-03 01:56 → UNDOADMOB 07-03 01:58 → ORTHO 4S 07-03 02:50 → ED HOLD 07-03 02:50 → ORTHO 4S 07-03 03:00 → UNDODISOB 07-03 20:18
PROVIDERS: ADMIT Family Medicine; ATTEND Family Medicine
DX: R07.89 Other chest pain (principal); R45.851 Suicidal ideations; R55 Syncope and collapse; N17.9 Acute kidney failure, unspecified; N39.0 Urinary tract infection, site not specified; R31.9 Hematuria, unspecified; F20.9 Schizophrenia, unspecified; F29 Unspecified psychosis not due to a substance or known physiological condition; J45.909 Unspecified asthma, uncomplicated; F31.9 Bipolar disorder, unspecified; E03.9 Hypothyroidism, unspecified; Z79.899 Other long term (current) drug therapy; Z88.0 Allergy status to penicillin; Z88.2 Allergy status to sulfonamides; Z88.5 Allergy status to narcotic agent; Z88.8 Allergy status to other drugs, medicaments and biological substances; Z91.048 Other nonmedicinal substance allergy status; Z91.010 Allergy to peanuts
CPT/HCPCS: 36415; 70450; 71045; 71250; 78582; 80053; 80305; 80320; 81001; 82948; 83605; 83735; 83880; 84443; 84484; 85025; 85379; 85610; 85730; 87081; 93005; 94760; 96361; 96365; 96366; 96372; 96375; 99285; A9539; A9540; G0378; J1956; J2405; J3486; J7030; J1650

== ENCOUNTER 2019-07-25 11:01 | Emergency (ER) | payer MEDICARE, OTHER ==
[~2019-07-25] VITALS: Ht 167.6 cm; Wt 81.8 kg
[~2019-07-25 11:01] MED LIST changes: +ASPI-611 PO; +LEVO100T9 PO; +LEVO500T89 PO; -LEVO50TA8 PO; -QUET-1 PO; -QUET200T30 PO; -ROPI2TAB4 PO
[2019-07-25 12:38] LABS: BASOPHILS % (AUTO) 0.5 % (0-1); EOSINOPHILS # (AUTO) 0.1 X10'3 (0-0.9); EOSINOPHILS % (AUTO) 1.9 % (0-6); HEMATOCRIT 35.9 % (35.0-45.0); HEMOGLOBIN 11.7 g/dl (12.0-16.0); LYMPHOCYTES # (AUTO) 0.7 X10'3 (1.1-4.8); LYMPHOCYTES % (AUTO) 9.3 % (21-51); MEAN CORPUSCULAR HEMOGLOBIN 28.6 PG (27.0-31.0); MEAN CORPUSCULAR HGB CONC 32.5 g/dL (33.0-36.5); MEAN PLATELET VOLUME 7.9 FL (7.4-10.4); MONOCYTES # (AUTO) 0.5 X10'3 (0-0.9); MONOCYTES % (AUTO) 6.4 % (2-12); NEUTROPHILS % (AUTO) 81.9 % (42-75); PLATELET COUNT 260 X10'3 (140-440); RED BLOOD COUNT 4.09 X10'6 (4.20-5.60); RED CELL DISTRIBUTION WIDTH 16.3 % (11.5-14.5); WHITE BLOOD COUNT 7.3 X10'3 (4.5-11.0)
[2019-07-25 12:56] LABS: ALANINE AMINOTRANSFERASE 19 U/L (12-78); ALBUMIN 3.8 G/DL (3.4-5.0); ALBUMIN/GLOBULIN RATIO 1.1 (1.1-1.5); ALKALINE PHOSPHATASE 86 IU/L (46-116); ANION GAP 7 (8-16); ASPARTATE AMINO TRANSFERASE 22 U/L (10-37); BILIRUBIN,TOTAL 0.5 MG/DL (0.1-1.0); BLOOD UREA NITROGEN 23 MG/DL (7-18); CALCIUM 9.5 MG/DL (8.5-10.1); CHLORIDE 107 MMOL/L (99-107); CREATININE 1.64 MG/DL (0.40-0.90); GLUCOSE 110 MG/DL (70-104); POTASSIUM 4.7 MMOL/L (3.5-5.1); SODIUM 141 MMOL/L (135-145); TOTAL CARBON DIOXIDE 27.5 MMOL/L (24-32); TOTAL PROTEIN 7.2 G/DL (6.4-8.2); eGFR 31 ML/MIN
[2019-07-25 12:59] LABS: ETHANOL < 0.010 GM/DL (0.0-0.010)
[2019-07-25 14:26] LABS: CLARITY,URINE SLIGHTLY CLOUDY (Clear); COLOR,URINE YELLOW (Yellow); GLUCOSE, URINE NEGATIVE (Neg); KETONES,URINE NEGATIVE (Neg); LEUKOCYTE ESTERASE ,URINE TRACE (Neg); NITRITES, URINE NEGATIVE (Neg); OCCULT BLOOD,URINE NEGATIVE (Neg); PROTEIN,URINE NEGATIVE (Neg); UA COLLECTION TYPE CLN CATCH MIDSTREAM; UROBILINOGEN,URINE 0.2 E.U/dL (0.2-1.0)
[2019-07-25 14:33] LABS: URINE AMPHETAMINE SCREEN NEGATIVE (Neg); URINE BARBITUATE SCREEN NEGATIVE (Neg); URINE BENZODIAZEPINES SCREEN NEGATIVE (Neg); URINE CANNABINOID SCREEN NEGATIVE (Neg); URINE COCAINE SCREEN NEGATIVE (Neg); URINE METHADONE SCREEN NEGATIVE (Neg); URINE OPIATE SCREEN NEGATIVE (Neg); URINE PHENCYCLIDINE SCREEN NEGATIVE (Neg)
[2019-07-25 14:37] LABS: HYALINE CASTS >30 /LPF (NEGATIVE); SQUAMOUS EPITHELIAL CELL,UR MODERATE /LPF (FEW); STARCH,URINE FEW /HPF (NEGATIVE)
[2019-07-25 14:38] LABS: BACTERIA,URINE 1+ /HPF (Neg); MUCUS STRANDS MODERATE /LPF (Neg); RBC,URINE 0-2 /HPF (0-2); TRANSITIONAL EPI CELLS,URINE FEW /HPF; WBC,URINE 0-4 /HPF (0-4)
[2019-07-25 16:03] VITALS: BP 137/77
== END 2019-07-25 16:24 | disposition home or self-care (01) ==
LOC: ER 11:02
DX: R53.1 Weakness (principal); R11.2 Nausea with vomiting, unspecified; R41.82 Altered mental status, unspecified; J45.909 Unspecified asthma, uncomplicated; F31.9 Bipolar disorder, unspecified; F20.9 Schizophrenia, unspecified; Z88.0 Allergy status to penicillin; Z88.2 Allergy status to sulfonamides; Z88.5 Allergy status to narcotic agent; Z91.010 Allergy to peanuts; Z88.8 Allergy status to other drugs, medicaments and biological substances; Z91.018 Allergy to other foods; Z79.82 Long term (current) use of aspirin; Z79.899 Other long term (current) drug therapy
CPT/HCPCS: 36415; 70450; 80053; 80305; 80320; 81001; 85025; 87088; 93005; 99285

== ENCOUNTER 2019-08-02 14:57 | Emergency (ER) | payer MEDICARE, OTHER ==
[~2019-08-02] VITALS: Ht 165.1 cm; Wt 82.7 kg
[2019-08-02] MEDS ORDERED: normal saline 1000ML IV soln IVB ONE (15:05)
[2019-08-02 15:29] LABS: BASOPHILS % (AUTO) 0.8 % (0-1); EOSINOPHILS # (AUTO) 0.2 X10'3 (0-0.9); EOSINOPHILS % (AUTO) 3.3 % (0-6); HEMATOCRIT 34.4 % (35.0-45.0); HEMOGLOBIN 11.3 g/dl (12.0-16.0); LYMPHOCYTES # (AUTO) 1.1 X10'3 (1.1-4.8); LYMPHOCYTES % (AUTO) 21.1 % (21-51); MEAN CORPUSCULAR HEMOGLOBIN 29.1 PG (27.0-31.0); MEAN CORPUSCULAR HGB CONC 32.7 g/dL (33.0-36.5); MEAN CORPUSCULAR VOLUME 89.2 FL (78-98); MEAN PLATELET VOLUME 7.7 FL (7.4-10.4); MONOCYTES # (AUTO) 0.7 X10'3 (0-0.9); MONOCYTES % (AUTO) 12.2 % (2-12); NEUTROPHILS # (AUTO) 3.4 X10'3 (1.8-7.7); NEUTROPHILS % (AUTO) 62.6 % (42-75); PLATELET COUNT 272 X10'3 (140-440); RED BLOOD COUNT 3.86 X10'6 (4.20-5.60); RED CELL DISTRIBUTION WIDTH 16.1 % (11.5-14.5); WHITE BLOOD COUNT 5.4 X10'3 (4.5-11.0)
[2019-08-02 15:43] LABS: ALANINE AMINOTRANSFERASE 29 U/L (12-78); ALBUMIN 3.8 G/DL (3.4-5.0); ALBUMIN/GLOBULIN RATIO 1.2 (1.1-1.5); ALKALINE PHOSPHATASE 88 IU/L (46-116); ANION GAP 5 (8-16); ASPARTATE AMINO TRANSFERASE 24 U/L (10-37); BILIRUBIN,TOTAL 0.3 MG/DL (0.1-1.0); BLOOD UREA NITROGEN 16 MG/DL (7-18); BUN/CREATININE RATIO 10.2 (6.6-38.0); CALCIUM 9.5 MG/DL (8.5-10.1); CHLORIDE 105 MMOL/L (99-107); CREATININE 1.57 MG/DL (0.40-0.90); GLUCOSE 113 MG/DL (70-104); POTASSIUM 4.7 MMOL/L (3.5-5.1); SODIUM 135 MMOL/L (135-145); TOTAL CARBON DIOXIDE 25.4 MMOL/L (24-32); eGFR 33 ML/MIN
[2019-08-02 17:54] VITALS: BP 129/68
== END 2019-08-02 17:59 | disposition home or self-care (01) ==
LOC: ER 14:58
DX: S09.90XA Unspecified injury of head, initial encounter (principal); R42 Dizziness and giddiness; M54.5 Low back pain; R19.7 Diarrhea, unspecified; J45.909 Unspecified asthma, uncomplicated; E03.9 Hypothyroidism, unspecified; F31.9 Bipolar disorder, unspecified; F20.9 Schizophrenia, unspecified; Z98.890 Other specified postprocedural states; Z88.0 Allergy status to penicillin; Z88.2 Allergy status to sulfonamides; Z88.5 Allergy status to narcotic agent; Z91.010 Allergy to peanuts; Z88.8 Allergy status to other drugs, medicaments and biological substances; Z91.018 Allergy to other foods; Z79.82 Long term (current) use of aspirin; Z79.899 Other long term (current) drug therapy; W18.39XA Other fall on same level, initial encounter; Y93.89 Activity, other specified; Y92.89 Other specified places as the place of occurrence of the external cause; Y99.8 Other external cause status
CPT/HCPCS: 36415; 70450; 71045; 80053; 80178; 85025; 93005; 96360; 99285; J7030

== ENCOUNTER 2019-09-09 14:02 | Emergency (ER) | payer MEDICARE, OTHER ==
[~2019-09-09] VITALS: Ht 165.1 cm; Wt 82.7 kg
[~2019-09-09 14:02] MED LIST changes: -ASPI-611 PO
--- NOTE | 2019-09-09 15:02 | NUR ---
Pt. to CT
--- NOTE | 2019-09-09 15:04 | NUR ---
Pt. back from CT.
[2019-09-09 15:22] LABS: BASOPHILS % (AUTO) 0.9 % (0-1); EOSINOPHILS # (AUTO) 0.2 X10'3 (0-0.9); EOSINOPHILS % (AUTO) 4.8 % (0-6); HEMATOCRIT 34.8 % (35.0-45.0); HEMOGLOBIN 11.3 g/dl (12.0-16.0); LYMPHOCYTES # (AUTO) 0.9 X10'3 (1.1-4.8); LYMPHOCYTES % (AUTO) 24.2 % (21-51); MEAN CORPUSCULAR HEMOGLOBIN 28.8 PG (27.0-31.0); MEAN CORPUSCULAR HGB CONC 32.4 g/dL (33.0-36.5); MEAN CORPUSCULAR VOLUME 89.1 FL (78-98); MEAN PLATELET VOLUME 7.8 FL (7.4-10.4); MONOCYTES # (AUTO) 0.4 X10'3 (0-0.9); MONOCYTES % (AUTO) 10.1 % (2-12); NEUTROPHILS # (AUTO) 2.2 X10'3 (1.8-7.7); PLATELET COUNT 238 X10'3 (140-440); RED BLOOD COUNT 3.91 X10'6 (4.20-5.60); RED CELL DISTRIBUTION WIDTH 15.1 % (11.5-14.5); WHITE BLOOD COUNT 3.6 X10'3 (4.5-11.0)
[2019-09-09 15:38] LABS: ALANINE AMINOTRANSFERASE 12 U/L (12-78); ALBUMIN 3.3 G/DL (3.4-5.0); ALBUMIN/GLOBULIN RATIO 1.1 (1.1-1.5); ALKALINE PHOSPHATASE 90 IU/L (46-116); ANION GAP 6 (8-16); ASPARTATE AMINO TRANSFERASE 16 U/L (10-37); BILIRUBIN,TOTAL 0.2 MG/DL (0.1-1.0); BLOOD UREA NITROGEN 14 MG/DL (7-18); BUN/CREATININE RATIO 9.7 (6.6-38.0); CHLORIDE 109 MMOL/L (99-107); CREATININE 1.45 MG/DL (0.40-0.90); GLUCOSE 105 MG/DL (70-104); POTASSIUM 4.4 MMOL/L (3.5-5.1); SODIUM 142 MMOL/L (135-145); TOTAL CARBON DIOXIDE 27.1 MMOL/L (24-32); TOTAL PROTEIN 6.4 G/DL (6.4-8.2); eGFR 36 ML/MIN
[2019-09-09 15:40] LABS: ETHANOL < 0.010 GM/DL (0.0-0.010)
[2019-09-09 15:45] LABS: CLARITY,URINE SLIGHTLY CLOUDY (Clear); COLOR,URINE YELLOW (Yellow); GLUCOSE, URINE NEGATIVE (Neg); KETONES,URINE NEGATIVE (Neg); LEUKOCYTE ESTERASE ,URINE SMALL (Neg); NITRITES, URINE NEGATIVE (Neg); OCCULT BLOOD,URINE NEGATIVE (Neg); PROTEIN,URINE NEGATIVE (Neg); UA COLLECTION TYPE NON-SPECIFIED; UROBILINOGEN,URINE 0.2 E.U/dL (0.2-1.0)
[2019-09-09 15:52] LABS: BACTERIA,URINE 1+ /HPF (Neg); MUCUS STRANDS FEW /LPF (Neg); RBC,URINE 0-2 /HPF (0-2); RENAL CELLS, URINE MANY /HPF; SQUAMOUS EPITHELIAL CELL,UR MODERATE /LPF (FEW); URINE AMPHETAMINE SCREEN NEGATIVE (Neg); URINE BARBITUATE SCREEN NEGATIVE (Neg); URINE BENZODIAZEPINES SCREEN NEGATIVE (Neg); URINE CANNABINOID SCREEN NEGATIVE (Neg); URINE COCAINE SCREEN NEGATIVE (Neg); URINE METHADONE SCREEN NEGATIVE (Neg); URINE OPIATE SCREEN NEGATIVE (Neg); URINE PHENCYCLIDINE SCREEN NEGATIVE (Neg); WBC CLUMPS,URINE FEW /HPF (NEGATIVE); WBC,URINE 30-50 /HPF (0-4)
[2019-09-09] MEDS ORDERED: CefTRIAXone 1000mg IM Kit (w/lidocaine diluent) IM ONE (16:05)
[2019-09-09] MEDS ORDERED: CEPH500C5 PO (16:06)
[2019-09-09 16:56] VITALS: BP 131/93
== END 2019-09-09 16:32 | disposition home or self-care (01) ==
LOC: ER 14:02
DX: N39.0 Urinary tract infection, site not specified (principal); R41.82 Altered mental status, unspecified; J45.909 Unspecified asthma, uncomplicated; E03.9 Hypothyroidism, unspecified; F31.9 Bipolar disorder, unspecified; F20.9 Schizophrenia, unspecified; Z88.0 Allergy status to penicillin; Z88.2 Allergy status to sulfonamides; Z88.5 Allergy status to narcotic agent; Z88.8 Allergy status to other drugs, medicaments and biological substances; Z91.02 Food additives allergy status; Z91.010 Allergy to peanuts; Z79.899 Other long term (current) drug therapy
CPT/HCPCS: 36415; 70450; 71045; 80053; 80305; 80320; 81001; 85025; 93005; 96372; 99285; J0696

== ENCOUNTER 2019-09-21 12:46 | Emergency (ER) | payer MEDICARE, OTHER ==
[~2019-09-21] VITALS: Ht 165.1 cm; Wt 80.0 kg
[2019-09-21] MEDS ORDERED: topiramate 25mg tablet PO ONE (13:40)
[2019-09-21] MEDS ORDERED: topiramate 100mg tablet PO ONE (13:40)
[2019-09-21] MEDS ORDERED: ondansetron 4mg rapidly disintigrating tab PO ONE (13:55)
[2019-09-21] MEDS ORDERED: dexamethasone 4mg/ml inj IV STA (14:33)
[2019-09-21] MEDS ORDERED: ketorolac tromethamine 15mg/ml inj. IV ONE (14:35)
[2019-09-21] MEDS ORDERED: normal saline 1000ML IV soln IVB ONE (14:35)
[2019-09-21] MEDS ORDERED: TOPI50TA PO (15:43)
[2019-09-21 15:50] VITALS: BP 117/89
== END 2019-09-21 15:52 | disposition home or self-care (01) ==
LOC: ER 12:47
DX: G43.909 Migraine, unspecified, not intractable, without status migrainosus (principal); J45.909 Unspecified asthma, uncomplicated; E03.9 Hypothyroidism, unspecified; Z87.01 Personal history of pneumonia (recurrent); Z88.0 Allergy status to penicillin; Z88.2 Allergy status to sulfonamides; Z88.5 Allergy status to narcotic agent; Z91.010 Allergy to peanuts; Z91.041 Radiographic dye allergy status; Z79.2 Long term (current) use of antibiotics
CPT/HCPCS: 96374; 96375; 99284; J1100; J1885; J7030

== ENCOUNTER 2019-10-27 17:34 | Emergency (ER) | payer MEDICARE, OTHER ==
[~2019-10-27] VITALS: Ht 165.1 cm; Wt 77.3 kg
[~2019-10-27 17:34] MED LIST changes: +TOPI50TA PO
[2019-10-27 17:44] VITALS: BP 148/67
[2019-10-27] MEDS ORDERED: diphenhydrAMINE 25mg capsule PO ONE (19:25)
[2019-10-27] MEDS ORDERED: proCHLORperazine 10 MG/2 ml inj IM ONE (19:25)
== END 2019-10-27 21:10 | disposition home or self-care (01) ==
LOC: ER 17:42
DX: R51 Headache (principal); R22.0 Localized swelling, mass and lump, head; J45.909 Unspecified asthma, uncomplicated; E03.9 Hypothyroidism, unspecified; F31.9 Bipolar disorder, unspecified; F20.9 Schizophrenia, unspecified; Z98.890 Other specified postprocedural states; Z88.0 Allergy status to penicillin; Z88.2 Allergy status to sulfonamides; Z88.5 Allergy status to narcotic agent; Z91.018 Allergy to other foods; Z88.8 Allergy status to other drugs, medicaments and biological substances; Z79.899 Other long term (current) drug therapy
CPT/HCPCS: 36415; 85651; 86140; 96372; 99283; J0780; Q0163

== ENCOUNTER → 2019-11-15 | Emergency (ER) | payer MEDICARE, OTHER ==
[~2019-11-15] VITALS: Ht 165.1 cm; Wt 77.0 kg
[~2019-11-15] MED LIST changes: +LORA-269 PO; +ROPI0.2534 PO; +ROPI0.5T4 PO; +ROPINIRole 1mg tablet PO ONE; +diphenhydrAMINE 25mg capsule PO ONE
[2019-11-15 01:00] VITALS: BP 162/94
== END | disposition home or self-care (01) ==
LOC: ER 00:54
DX: G25.81 Restless legs syndrome (principal); Z76.0 Encounter for issue of repeat prescription; G43.909 Migraine, unspecified, not intractable, without status migrainosus; J45.909 Unspecified asthma, uncomplicated; E03.9 Hypothyroidism, unspecified; Z79.899 Other long term (current) drug therapy; Z88.0 Allergy status to penicillin; Z88.2 Allergy status to sulfonamides; Z91.010 Allergy to peanuts
CPT/HCPCS: 99283; Q0163

== ENCOUNTER 2019-11-17 03:05 | Emergency (ER) | payer MEDICARE, OTHER ==
[~2019-11-17] VITALS: Ht 165.1 cm; Wt 80.0 kg
[~2019-11-17 03:05] MED LIST changes: -LORA-269 PO; -ROPI0.2534 PO; -ROPINIRole 1mg tablet PO ONE; -diphenhydrAMINE 25mg capsule PO ONE
[2019-11-17 03:11] VITALS: BP 144/77
[2019-11-17] MEDS ORDERED: diphenhydrAMINE 50 mg/ml inj IM ONE (03:30)
--- NOTE | 2019-11-17 04:02 | NUR ---
pt states she has 9/10 pain B/L lower extremeties and wants something for pain and something to calm down.
[2019-11-17 04:09] LABS: ALBUMIN 3.6 G/DL (3.4-5.0); ANION GAP 9 (8-16); BLOOD UREA NITROGEN 18 MG/DL (7-18); BUN/CREATININE RATIO 11.9 (6.6-38.0); CALCIUM 8.9 MG/DL (8.5-10.1); CHLORIDE 111 MMOL/L (99-107); CREATININE 1.51 MG/DL (0.40-0.90); GLUCOSE 129 MG/DL (70-104); MAGNESIUM 2.1 MG/DL (1.5-2.4); POTASSIUM 3.9 MMOL/L (3.5-5.1); SODIUM 144 MMOL/L (135-145); TOTAL CARBON DIOXIDE 23.6 MMOL/L (24-32); eGFR 34 ML/MIN
[2019-11-17] MEDS ORDERED: LORazepam 1 MG tablet PO ONE (04:10)
[2019-11-17] MEDS ORDERED: ROPI0.2534 PO (04:57)
[2019-11-18] MEDS ORDERED: LORA-269 PO (21:25)
== END 2019-11-17 05:09 | disposition home or self-care (01) ==
LOC: ER 03:06
DX: G25.81 Restless legs syndrome (principal); G43.909 Migraine, unspecified, not intractable, without status migrainosus; J45.909 Unspecified asthma, uncomplicated; E03.9 Hypothyroidism, unspecified; F31.9 Bipolar disorder, unspecified; F20.9 Schizophrenia, unspecified; Z88.0 Allergy status to penicillin; Z88.2 Allergy status to sulfonamides; Z88.8 Allergy status to other drugs, medicaments and biological substances; Z79.899 Other long term (current) drug therapy
CPT/HCPCS: 36415; 80048; 83735; 96372; 99283; J1200

== ENCOUNTER 2019-11-18 19:21 | Emergency (ER) | payer MEDICARE, OTHER ==
[~2019-11-18] VITALS: Ht 165.1 cm; Wt 79.0 kg
[~2019-11-18 19:21] MED LIST changes: +ROPI0.2534 PO
[2019-11-18 20:30] LABS: URINE AMPHETAMINE SCREEN NEGATIVE (Neg); URINE BARBITUATE SCREEN NEGATIVE (Neg); URINE BENZODIAZEPINES SCREEN NEGATIVE (Neg); URINE CANNABINOID SCREEN NEGATIVE (Neg); URINE COCAINE SCREEN NEGATIVE (Neg); URINE METHADONE SCREEN NEGATIVE (Neg); URINE OPIATE SCREEN NEGATIVE (Neg); URINE PHENCYCLIDINE SCREEN NEGATIVE (Neg)
[2019-11-18 20:37] LABS: BASOPHILS % (AUTO) 0.8 % (0-1); EOSINOPHILS # (AUTO) 0.2 X10'3 (0-0.9); EOSINOPHILS % (AUTO) 4.2 % (0-6); HEMATOCRIT 33.5 % (35.0-45.0); LYMPHOCYTES # (AUTO) 1.2 X10'3 (1.1-4.8); LYMPHOCYTES % (AUTO) 22.3 % (21-51); MEAN CORPUSCULAR HEMOGLOBIN 29.7 PG (27.0-31.0); MEAN CORPUSCULAR HGB CONC 32.9 g/dL (33.0-36.5); MEAN CORPUSCULAR VOLUME 90.3 FL (78-98); MONOCYTES # (AUTO) 0.6 X10'3 (0-0.9); MONOCYTES % (AUTO) 11.3 % (2-12); NEUTROPHILS # (AUTO) 3.3 X10'3 (1.8-7.7); NEUTROPHILS % (AUTO) 61.4 % (42-75); PLATELET COUNT 235 X10'3 (140-440); RED BLOOD COUNT 3.71 X10'6 (4.20-5.60); RED CELL DISTRIBUTION WIDTH 16.8 % (11.5-14.5); WHITE BLOOD COUNT 5.4 X10'3 (4.5-11.0)
[2019-11-18 20:38] LABS: CLARITY,URINE CLEAR (Clear); COLOR,URINE STRAW (Yellow); GLUCOSE, URINE NEGATIVE (Neg); KETONES,URINE NEGATIVE (Neg); LEUKOCYTE ESTERASE ,URINE TRACE (Neg); NITRITES, URINE NEGATIVE (Neg); OCCULT BLOOD,URINE NEGATIVE (Neg); PH,URINE 6.5 (4.8-8.0); PROTEIN,URINE NEGATIVE (Neg); UROBILINOGEN,URINE 0.2 E.U/dL (0.2-1.0)
[2019-11-18 20:40] LABS: UA COLLECTION TYPE CLN CATCH MIDSTREAM
[2019-11-18 20:43] LABS: ACETAMINOPHEN 2.7 UG/ML (10-30); ALANINE AMINOTRANSFERASE 15 U/L (12-78); ALBUMIN 3.6 G/DL (3.4-5.0); ALBUMIN/GLOBULIN RATIO 1.2 (1.1-1.5); ALKALINE PHOSPHATASE 90 IU/L (46-116); ANION GAP 6 (8-16); ASPARTATE AMINO TRANSFERASE 13 U/L (10-37); BILIRUBIN,TOTAL 0.2 MG/DL (0.1-1.0); BLOOD UREA NITROGEN 17 MG/DL (7-18); BUN/CREATININE RATIO 12.7 (6.6-38.0); CALCIUM 9.1 MG/DL (8.5-10.1); CHLORIDE 109 MMOL/L (99-107); CREATININE 1.34 MG/DL (0.40-0.90); ETHANOL < 0.010 GM/DL (0.0-0.010); GLUCOSE 94 MG/DL (70-104); POTASSIUM 4.2 MMOL/L (3.5-5.1); SODIUM 141 MMOL/L (135-145); TOTAL CARBON DIOXIDE 25.7 MMOL/L (24-32); TOTAL PROTEIN 6.6 G/DL (6.4-8.2); eGFR 40 ML/MIN
[2019-11-18] MEDS ORDERED: LORazepam 1 MG tablet PO ONE (21:25)
[2019-11-18] MEDS ORDERED: LORA-269 PO (21:25)
[2019-11-18 21:36] VITALS: BP 146/77
[2019-11-18 22:00] LABS: BACTERIA,URINE NONE SEEN /HPF (Neg); MUCUS STRANDS NONE SEEN /LPF (Neg); RBC,URINE NONE SEEN /HPF (0-2); SQUAMOUS EPITHELIAL CELL,UR FEW /LPF (FEW); STARCH,URINE MODERATE /HPF (NEGATIVE); WBC,URINE 0-4 /HPF (0-4)
== END 2019-11-18 21:38 | disposition home or self-care (01) ==
LOC: ER 19:22
DX: R45.1 Restlessness and agitation (principal); G25.81 Restless legs syndrome; G43.909 Migraine, unspecified, not intractable, without status migrainosus; J45.909 Unspecified asthma, uncomplicated; E03.9 Hypothyroidism, unspecified; F31.9 Bipolar disorder, unspecified; F20.9 Schizophrenia, unspecified; Z98.890 Other specified postprocedural states; Z88.0 Allergy status to penicillin; Z88.2 Allergy status to sulfonamides; Z88.5 Allergy status to narcotic agent; Z88.8 Allergy status to other drugs, medicaments and biological substances; Z79.899 Other long term (current) drug therapy
CPT/HCPCS: 36415; 80053; 80305; 80320; 80329; 81001; 85025; 99283

== ENCOUNTER 2019-11-21 14:30 | Emergency (ER) | payer MEDICARE, OTHER ==
[~2019-11-21] VITALS: Ht 165.1 cm; Wt 78.2 kg
[~2019-11-21 14:30] MED LIST changes: +LORA-269 PO
[2019-11-21 14:46] VITALS: BP 115/58
== END 2019-11-21 15:51 | disposition home or self-care (01) ==
LOC: ER 14:31
DX: J00 Acute nasopharyngitis [common cold] (principal); R05 Cough; Z20.828 Contact with and (suspected) exposure to other viral communicable diseases; G43.909 Migraine, unspecified, not intractable, without status migrainosus; J45.909 Unspecified asthma, uncomplicated; E03.9 Hypothyroidism, unspecified; F31.9 Bipolar disorder, unspecified; F20.9 Schizophrenia, unspecified; Z87.01 Personal history of pneumonia (recurrent); Z98.890 Other specified postprocedural states; Z88.0 Allergy status to penicillin; Z88.2 Allergy status to sulfonamides; Z88.8 Allergy status to other drugs, medicaments and biological substances; Z91.018 Allergy to other foods; Z91.010 Allergy to peanuts; Z79.899 Other long term (current) drug therapy; Z79.2 Long term (current) use of antibiotics
CPT/HCPCS: 36415; 71045; 99284; U0003

== ENCOUNTER 2019-12-19 05:01 | Emergency (ER) | payer MEDICARE, OTHER ==
[~2019-12-19] VITALS: Ht 165.1 cm; Wt 77.7 kg
[2019-12-19 05:05] VITALS: BP 133/58
[2019-12-19 05:39] LABS: CLARITY,URINE CLEAR (Clear); COLOR,URINE YELLOW (Yellow); GLUCOSE, URINE NEGATIVE (Neg); KETONES,URINE NEGATIVE (Neg); LEUKOCYTE ESTERASE ,URINE NEGATIVE (Neg); NITRITES, URINE NEGATIVE (Neg); OCCULT BLOOD,URINE NEGATIVE (Neg); PH,URINE 5.5 (4.8-8.0); PROTEIN,URINE NEGATIVE (Neg); UROBILINOGEN,URINE 0.2 E.U/dL (0.2-1.0)
[2019-12-19] MEDS ORDERED: acetaminophen 325mg tablet PO ONE (05:40)
[2019-12-19 05:42] LABS: EOSINOPHILS # (AUTO) 0.2 X10'3 (0-0.9); EOSINOPHILS % (AUTO) 5.6 % (0-6); HEMATOCRIT 37.1 % (35.0-45.0); HEMOGLOBIN 12.2 g/dl (12.0-16.0); LYMPHOCYTES # (AUTO) 1.4 X10'3 (1.1-4.8); LYMPHOCYTES % (AUTO) 36.9 % (21-51); MEAN CORPUSCULAR HEMOGLOBIN 29.9 PG (27.0-31.0); MEAN CORPUSCULAR HGB CONC 32.9 g/dL (33.0-36.5); MEAN CORPUSCULAR VOLUME 90.8 FL (78-98); MEAN PLATELET VOLUME 8.9 FL (7.4-10.4); MONOCYTES # (AUTO) 0.4 X10'3 (0-0.9); MONOCYTES % (AUTO) 10.3 % (2-12); NEUTROPHILS # (AUTO) 1.7 X10'3 (1.8-7.7); NEUTROPHILS % (AUTO) 46.2 % (42-75); PLATELET COUNT 238 X10'3 (140-440); RED BLOOD COUNT 4.09 X10'6 (4.20-5.60); RED CELL DISTRIBUTION WIDTH 15.5 % (11.5-14.5); WHITE BLOOD COUNT 3.7 X10'3 (4.5-11.0)
[2019-12-19 05:45] LABS: UA COLLECTION TYPE CLN CATCH MIDSTREAM; URINE AMPHETAMINE SCREEN NEGATIVE (Neg); URINE BARBITUATE SCREEN NEGATIVE (Neg); URINE BENZODIAZEPINES SCREEN NEGATIVE (Neg); URINE CANNABINOID SCREEN NEGATIVE (Neg); URINE COCAINE SCREEN NEGATIVE (Neg); URINE METHADONE SCREEN NEGATIVE (Neg); URINE OPIATE SCREEN NEGATIVE (Neg); URINE PHENCYCLIDINE SCREEN NEGATIVE (Neg)
[2019-12-19 05:56] LABS: ALBUMIN 4.1 G/DL (3.4-5.0); ALBUMIN/GLOBULIN RATIO 1.3 (1.1-1.5); ANION GAP 12 (8-16); ASPARTATE AMINO TRANSFERASE 14 U/L (10-37); BILIRUBIN,TOTAL 0.3 MG/DL (0.1-1.0); BLOOD UREA NITROGEN 26 MG/DL (7-18); CALCIUM 9.5 MG/DL (8.5-10.1); CHLORIDE 109 MMOL/L (99-107); GLUCOSE 128 MG/DL (70-104); SODIUM 142 MMOL/L (135-145); TOTAL CARBON DIOXIDE 20.7 MMOL/L (24-32); TOTAL PROTEIN 7.3 G/DL (6.4-8.2); eGFR 41 ML/MIN
[2019-12-19 05:57] LABS: ALANINE AMINOTRANSFERASE 17 U/L (12-78); ALKALINE PHOSPHATASE 83 IU/L (46-116)
[2019-12-19 06:08] LABS: ETHANOL < 0.010 GM/DL (0.0-0.010)
--- NOTE | 2019-12-19 08:00 | NUR ---
pt is resting no issues at this time
--- NOTE | 2019-12-19 09:00 | NUR ---
pt is resting
--- NOTE | 2019-12-19 10:00 | NUR ---
pt is resting
--- NOTE | 2019-12-19 10:53 | NUR ---
pt is resting
--- NOTE | 2019-12-19 12:52 | NUR ---
pt is resting
--- NOTE | 2019-12-19 13:00 | NUR ---
pt is sleeping. no concerns
--- NOTE | 2019-12-19 14:00 | NUR ---
pt is sleeping. no concerns
--- NOTE | 2019-12-19 15:00 | NUR ---
pt is sleeping. no concerns
[2019-12-19] MEDS ORDERED: ALBU8.5H8 INH ×2 (15:43→15:45)
[2019-12-19] MEDS ORDERED: LEVO100T PO ×2 (15:54→15:55)
[2019-12-19] MEDS ORDERED: LORA-269 PO (15:57)
[2019-12-19] MEDS ORDERED: ROPI0.252 PO (15:59)
[2019-12-19] MEDS ORDERED: TOPI50TA PO (16:00)
--- NOTE | 2019-12-19 16:00 | NUR ---
pt is sleeping. no concerns
[2019-12-19] MEDS ORDERED: albuterol 2.5 MG/3 ML nebule NEB PRN (16:25)
[2019-12-19] MEDS ORDERED: acetaminophen 325mg tablet PO PRN (16:35)
[2019-12-19] MEDS ORDERED: TOPIRAMATE PO SCH (20:00)
[2019-12-19] MEDS ORDERED: benztropine 1mg tablet PO SCH (20:00)
[2019-12-19] MEDS ORDERED: duloxetine 30mg CAPSULE.DR PO SCH (20:00)
[2019-12-19] MEDS ORDERED: topiramate 25mg tablet PO SCH (20:00)
[2019-12-19] MEDS ORDERED: lamoTRIgine 100mg tablet PO SCH (21:00)
[2019-12-19] MEDS ORDERED: lamoTRIgine 25mg tablet PO SCH (21:00)
[2019-12-19] MEDS ORDERED: CLONAZEPAM PO SCH (21:00)
[2019-12-19] MEDS ORDERED: hydrOXYzine 25 MG tablet PO SCH (21:00)
[2019-12-19] MEDS ORDERED: CARIPRAZINE 1.5 MG CAPSULE PO SCH (21:00)
[2019-12-19] MEDS ORDERED: ROPINIRole 0.25mg tablet PO SCH ×2 (21:00)
[2019-12-20] MEDS ORDERED: LORazepam 1 MG tablet PO SCH
[2019-12-20] MEDS ORDERED: levoTHYROXINE 100mcg tablet PO SCH (08:00)
== END 2019-12-19 18:55 | disposition home or self-care (01) ==
LOC: ER 05:01
DX: S06.0X0A Concussion without loss of consciousness, initial encounter (principal); S00.03XA Contusion of scalp, initial encounter; G43.909 Migraine, unspecified, not intractable, without status migrainosus; E03.9 Hypothyroidism, unspecified; F31.9 Bipolar disorder, unspecified; F20.9 Schizophrenia, unspecified; Z88.0 Allergy status to penicillin; Z88.2 Allergy status to sulfonamides; Z88.1 Allergy status to other antibiotic agents; Z88.5 Allergy status to narcotic agent; Z91.010 Allergy to peanuts; Z79.899 Other long term (current) drug therapy; X78.9XXA Intentional self-harm by unspecified sharp object, initial encounter; Y93.89 Activity, other specified; Y92.89 Other specified places as the place of occurrence of the external cause; Y99.9 Unspecified external cause status
CPT/HCPCS: 36415; 80053; 80305; 80320; 81003; 84443; 85025; 99283

== ENCOUNTER 2019-12-25 10:34 | Emergency (ER) | payer MEDICARE, OTHER ==
[~2019-12-25] VITALS: Ht 165.1 cm; Wt 77.3 kg
[~2019-12-25 10:34] MED LIST changes: +LEVO100T PO; -LEVO100T9 PO; -LEVO500T89 PO; +ROPI0.252 PO; -ROPI0.2534 PO; -ROPI0.5T4 PO
[2019-12-25] MEDS ORDERED: traMADol 50MG tablet PO ONE (11:20)
[2019-12-25] MEDS ORDERED: CEPH250T PO (11:20)
[2019-12-25 11:53] VITALS: BP 116/78
== END 2019-12-25 11:57 | disposition home or self-care (01) ==
LOC: ER 10:35
DX: M79.604 Pain in right leg (principal); G43.909 Migraine, unspecified, not intractable, without status migrainosus; J45.909 Unspecified asthma, uncomplicated; E03.9 Hypothyroidism, unspecified; F31.9 Bipolar disorder, unspecified; F20.9 Schizophrenia, unspecified; Z87.01 Personal history of pneumonia (recurrent); Z98.890 Other specified postprocedural states; Z88.0 Allergy status to penicillin; Z88.2 Allergy status to sulfonamides; Z88.8 Allergy status to other drugs, medicaments and biological substances; Z88.5 Allergy status to narcotic agent; Z91.010 Allergy to peanuts; Z79.2 Long term (current) use of antibiotics; Z79.899 Other long term (current) drug therapy
CPT/HCPCS: 99284

== ENCOUNTER 2020-01-03 10:19 | Emergency (ER) | payer MEDICARE, OTHER ==
[~2020-01-03] VITALS: Ht 165.1 cm; Wt 76.8 kg
[2020-01-03] MEDS ORDERED: ACET-3068 PO (12:12)
[2020-01-03 12:25] VITALS: BP 125/70
== END 2020-01-03 12:25 | disposition home or self-care (01) ==
LOC: ER 10:20
DX: S43.005A Unspecified dislocation of left shoulder joint, initial encounter (principal); G43.909 Migraine, unspecified, not intractable, without status migrainosus; E03.9 Hypothyroidism, unspecified; F31.9 Bipolar disorder, unspecified; F20.9 Schizophrenia, unspecified; Z88.0 Allergy status to penicillin; Z88.2 Allergy status to sulfonamides; Z88.5 Allergy status to narcotic agent; Z88.8 Allergy status to other drugs, medicaments and biological substances; Z79.899 Other long term (current) drug therapy; W34.00XA Accidental discharge from unspecified firearms or gun, initial encounter; Y93.89 Activity, other specified; Y92.89 Other specified places as the place of occurrence of the external cause; Y99.8 Other external cause status
CPT/HCPCS: 29105; 73030; 99284

== ENCOUNTER 2020-02-02 18:30 | Emergency (ER) | payer MEDICARE, OTHER ==
[~2020-02-02] VITALS: Ht 165.1 cm; Wt 78.5 kg
[~2020-02-02 18:30] MED LIST changes: +ACET-3068 PO
[2020-02-02] MEDS ORDERED: HYDROcodone/acetaminophen 5mg/325mg tablet PO ONE (19:00)
[2020-02-02] MEDS ORDERED: TRAM50TA2 PO (19:56)
[2020-02-02 20:20] VITALS: BP 107/60
== END 2020-02-02 20:38 | disposition home or self-care (01) ==
LOC: ER 18:31
DX: S16.1XXA Strain of muscle, fascia and tendon at neck level, initial encounter (principal); S30.0XXA Contusion of lower back and pelvis, initial encounter; S70.01XA Contusion of right hip, initial encounter; G43.909 Migraine, unspecified, not intractable, without status migrainosus; J45.909 Unspecified asthma, uncomplicated; E03.9 Hypothyroidism, unspecified; F31.9 Bipolar disorder, unspecified; F20.9 Schizophrenia, unspecified; Z88.0 Allergy status to penicillin; Z88.2 Allergy status to sulfonamides; Z88.5 Allergy status to narcotic agent; Z88.8 Allergy status to other drugs, medicaments and biological substances; Z79.899 Other long term (current) drug therapy; W19.XXXA Unspecified fall, initial encounter; Y93.89 Activity, other specified; Y92.89 Other specified places as the place of occurrence of the external cause; Y99.8 Other external cause status
CPT/HCPCS: 70450; 72125; 72128; 72131; 73502; 99285

== ENCOUNTER 2020-05-30 16:24 | Emergency (ER) | payer MEDICARE, OTHER ==
[~2020-05-30] VITALS: Ht 165.1 cm; Wt 83.6 kg
[~2020-05-30 16:24] MED LIST changes: -ACET-3068 PO
--- NOTE | 2020-05-30 16:43 | NUR ---
PT THIERNO [phone]
[2020-05-30 17:59] LABS: BASOPHILS % (AUTO) 0.1 % (0-1); EOSINOPHILS # (AUTO) 0.1 X10'3 (0-0.9); EOSINOPHILS % (AUTO) 1.7 % (0-6); HEMATOCRIT 38.8 % (35.0-45.0); HEMOGLOBIN 13.2 g/dl (12.0-16.0); LYMPHOCYTES # (AUTO) 1.4 X10'3 (1.1-4.8); LYMPHOCYTES % (AUTO) 32.7 % (21-51); MEAN CORPUSCULAR HEMOGLOBIN 30.4 PG (27.0-31.0); MEAN CORPUSCULAR VOLUME 89.7 FL (78-98); MEAN PLATELET VOLUME 8.7 FL (7.4-10.4); MONOCYTES # (AUTO) 0.5 X10'3 (0-0.9); NEUTROPHILS # (AUTO) 2.3 X10'3 (1.8-7.7); NEUTROPHILS % (AUTO) 54.5 % (42-75); PLATELET COUNT 186 X10'3 (140-440); RED BLOOD COUNT 4.33 X10'6 (4.20-5.60); RED CELL DISTRIBUTION WIDTH 15.9 % (11.5-14.5); WHITE BLOOD COUNT 4.2 X10'3 (4.5-11.0)
[2020-05-30 18:11] LABS: ALANINE AMINOTRANSFERASE 21 U/L (12-78); ALBUMIN 3.9 G/DL (3.4-5.0); ALBUMIN/GLOBULIN RATIO 1.1 (1.1-1.5); ALKALINE PHOSPHATASE 97 IU/L (46-116); ANION GAP 7 (8-16); ASPARTATE AMINO TRANSFERASE 16 U/L (10-37); BILIRUBIN,TOTAL 0.2 MG/DL (0.1-1.0); BLOOD UREA NITROGEN 18 MG/DL (7-18); BUN/CREATININE RATIO 15.7 (6.6-38.0); CALCIUM 9.1 MG/DL (8.5-10.1); CHLORIDE 109 MMOL/L (99-107); CREATININE 1.15 MG/DL (0.40-0.90); GLUCOSE 91 MG/DL (70-104); POTASSIUM 3.9 MMOL/L (3.5-5.1); SODIUM 144 MMOL/L (135-145); TOTAL CARBON DIOXIDE 27.6 MMOL/L (24-32); TOTAL PROTEIN 7.4 G/DL (6.4-8.2); eGFR 47 ML/MIN
[2020-05-30 18:32] LABS: LIPASE 904 U/L (73-393)
[2020-05-30 21:38] VITALS: BP 137/63
== END 2020-05-30 21:30 | disposition home or self-care (01) ==
LOC: ER 16:25
DX: R07.89 Other chest pain (principal); R93.5 Abnormal findings on diagnostic imaging of other abdominal regions, including retroperitoneum; R10.11 Right upper quadrant pain; G43.909 Migraine, unspecified, not intractable, without status migrainosus; J45.909 Unspecified asthma, uncomplicated; E03.9 Hypothyroidism, unspecified; F31.9 Bipolar disorder, unspecified; F20.9 Schizophrenia, unspecified; Z87.01 Personal history of pneumonia (recurrent); Z98.890 Other specified postprocedural states; Z88.0 Allergy status to penicillin; Z88.2 Allergy status to sulfonamides; Z88.8 Allergy status to other drugs, medicaments and biological substances; Z88.5 Allergy status to narcotic agent; Z91.010 Allergy to peanuts; Z91.018 Allergy to other foods; Z79.899 Other long term (current) drug therapy
CPT/HCPCS: 36415; 71045; 74176; 80053; 83690; 83880; 84484; 85025; 93005; 99285

== ENCOUNTER 2020-09-20 17:42 | Emergency (ER) | payer MEDICARE, OTHER ==
[~2020-09-20] VITALS: Ht 165.1 cm; Wt 92.3 kg
[2020-09-20] MEDS ORDERED: normal saline 1000ML IV soln IVB ONE (19:55)
[2020-09-20] MEDS ORDERED: proCHLORperazine 10 MG/2 ml inj IV ONE (19:55)
[2020-09-20] MEDS ORDERED: diphenhydrAMINE 50 mg/ml inj IV ONE (19:55)
[2020-09-20] MEDS ORDERED: ketorolac tromethamine 15mg/ml inj. IV ONE (19:55)
[2020-09-20] MEDS ORDERED: topiramate 100mg tablet PO ONE (20:35)
[2020-09-20] MEDS ORDERED: dexamethasone 4mg/ml inj IV STA (21:03)
[2020-09-20 21:59] VITALS: BP 134/76
[2020-09-21] MEDS ORDERED: dexamethasone 4mg/ml inj IM SCH (02:00)
== END 2020-09-20 22:01 | disposition home or self-care (01) ==
LOC: ER 17:42
DX: G43.909 Migraine, unspecified, not intractable, without status migrainosus (principal); J45.909 Unspecified asthma, uncomplicated; E03.9 Hypothyroidism, unspecified; Z87.01 Personal history of pneumonia (recurrent); Z88.0 Allergy status to penicillin; Z88.1 Allergy status to other antibiotic agents; Z91.010 Allergy to peanuts
CPT/HCPCS: 96361; 96374; 96375; 99284; J0780; J1100; J1200; J1885; J7030

== ENCOUNTER 2020-11-07 20:16 | Emergency (ER) | payer MEDICARE, OTHER ==
[~2020-11-07] VITALS: Ht 165.1 cm; Wt 94.5 kg
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
[2020-11-07 23:27] LABS: CLARITY,URINE CLEAR (Clear); COLOR,URINE YELLOW (Yellow); GLUCOSE, URINE NEGATIVE (Neg); KETONES,URINE NEGATIVE (Neg); LEUKOCYTE ESTERASE ,URINE NEGATIVE (Neg); NITRITES, URINE NEGATIVE (Neg); OCCULT BLOOD,URINE NEGATIVE (Neg); PROTEIN,URINE NEGATIVE (Neg); UROBILINOGEN,URINE 0.2 E.U/dL (0.2-1.0)
[2020-11-07 23:34] LABS: UA COLLECTION TYPE CLN CATCH MIDSTREAM
[2020-11-07] MEDS ORDERED: LEVO15TA5 PO (23:34)
[2020-11-07] MEDS ORDERED: OLAN10TA3 PO (23:34)
[2020-11-07] MEDS ORDERED: ELET40TA PO ×2 (23:34)
[2020-11-07] MEDS ORDERED: ESCI10TA PO (23:34)
[2020-11-07] MEDS ORDERED: FLUT1DIS20 INH (23:34)
[2020-11-07 23:38] LABS: URINE AMPHETAMINE SCREEN NEGATIVE (Neg); URINE BARBITUATE SCREEN NEGATIVE (Neg); URINE BENZODIAZEPINES SCREEN NEGATIVE (Neg); URINE CANNABINOID SCREEN NEGATIVE (Neg); URINE COCAINE SCREEN NEGATIVE (Neg); URINE METHADONE SCREEN NEGATIVE (Neg); URINE OPIATE SCREEN NEGATIVE (Neg); URINE PHENCYCLIDINE SCREEN NEGATIVE (Neg)
[2020-11-08 00:06] LABS: ALANINE AMINOTRANSFERASE 26 U/L (12-78); ALBUMIN 3.6 G/DL (3.4-5.0); ALKALINE PHOSPHATASE 107 IU/L (46-116); ANION GAP 10 (8-16); ASPARTATE AMINO TRANSFERASE 18 U/L (10-37); BILIRUBIN,TOTAL 0.2 MG/DL (0.1-1.0); BLOOD UREA NITROGEN 20 MG/DL (7-18); BUN/CREATININE RATIO 16.8 (6.6-38.0); CALCIUM 8.9 MG/DL (8.5-10.1); CHLORIDE 109 MMOL/L (99-107); CREATININE 1.19 MG/DL (0.40-0.90); GLUCOSE 100 MG/DL (70-104); POTASSIUM 4.2 MMOL/L (3.5-5.1); SODIUM 144 MMOL/L (135-145); TOTAL PROTEIN 7.2 G/DL (6.4-8.2); eGFR 45 ML/MIN
[2020-11-08 00:09] LABS: BASOPHILS % (AUTO) 0.1 % (0-1); EOSINOPHILS # (AUTO) 0.3 X10'3 (0-0.9); EOSINOPHILS % (AUTO) 6.8 % (0-6); HEMATOCRIT 36.5 % (35.0-45.0); HEMOGLOBIN 12.4 g/dl (12.0-16.0); LYMPHOCYTES # (AUTO) 1.5 X10'3 (1.1-4.8); LYMPHOCYTES % (AUTO) 32.3 % (21-51); MEAN CORPUSCULAR HEMOGLOBIN 31.4 PG (27.0-31.0); MEAN CORPUSCULAR HGB CONC 33.9 g/dL (33.0-36.5); MEAN CORPUSCULAR VOLUME 92.6 FL (78-98); MEAN PLATELET VOLUME 8.2 FL (7.4-10.4); MONOCYTES # (AUTO) 0.5 X10'3 (0-0.9); MONOCYTES % (AUTO) 10.4 % (2-12); NEUTROPHILS # (AUTO) 2.3 X10'3 (1.8-7.7); NEUTROPHILS % (AUTO) 50.4 % (42-75); PLATELET COUNT 218 X10'3 (140-440); RED BLOOD COUNT 3.94 X10'6 (4.20-5.60); RED CELL DISTRIBUTION WIDTH 13.2 % (11.5-14.5); WHITE BLOOD COUNT 4.6 X10'3 (4.5-11.0)
[2020-11-08 00:15] LABS: ETHANOL < 0.010 GM/DL (0.0-0.010)
[2020-11-08] MEDS ORDERED: acetaminophen 325mg tablet PO ONE ×2 (00:45→07:40)
[2020-11-08] MEDS ORDERED: topiramate 100mg tablet PO ONE (00:45)
--- NOTE | 2020-11-08 00:50 | NUR ---
pt requesting her nighttime medicaions of zyprexa and topamax as well as some tylenol for chronic shoulder pain. received orders from [facility] for zyprexa 10, topamax 50, and tylenol 650
--- NOTE | 2020-11-08 01:02 | NUR ---
faxed packet to [facility]
--- NOTE | 2020-11-08 03:20 | NUR ---
pt appears to be sleeping peacefully in bed on back. respirations equal and unlabored with no s/s respiratory distress.
[2020-11-08] MEDS: albuterol 2.5 MG/3 ML nebule NEB SCH ×2 (03:23→08:52)
[2020-11-08 05:37] VITALS: BP 126/76
[2020-11-08] MEDS ORDERED: LEVOMEFOLATE CALCIUM PO SCH (08:00)
[2020-11-08] MEDS ORDERED: topiramate 25mg tablet PO SCH (08:00)
[2020-11-08] MEDS ORDERED: ROPINIRole 0.25mg tablet PO SCH (08:00)
[2020-11-08] MEDS ORDERED: ESCITALOPRAM OXALATE 5 MG TABLET PO SCH (08:00)
[2020-11-08] MEDS ORDERED: ELETRIPTAN HBR PO SCH ×2 (08:00)
[2020-11-08] MEDS ORDERED: olanzapine 10mg tablet PO ONE (08:00)
[2020-11-08] MEDS ORDERED: budesonide 0.5mg/2ml UD nebule IH SCH (09:00)
[2020-11-08] MEDS ORDERED: olanzapine 10mg tablet PO SCH (21:00)
== END 2020-11-08 12:33 | disposition home or self-care (01) ==
LOC: ER 20:17
DX: R45.851 Suicidal ideations (principal); Z20.822 Contact with and (suspected) exposure to COVID-19; R44.0 Auditory hallucinations; G43.909 Migraine, unspecified, not intractable, without status migrainosus; J45.909 Unspecified asthma, uncomplicated; E03.9 Hypothyroidism, unspecified; Z87.01 Personal history of pneumonia (recurrent); Z79.899 Other long term (current) drug therapy; Z88.0 Allergy status to penicillin; Z88.2 Allergy status to sulfonamides; Z91.018 Allergy to other foods; Z91.010 Allergy to peanuts; Z88.8 Allergy status to other drugs, medicaments and biological substances
CPT/HCPCS: 36415; 80053; 80305; 80320; 81003; 84443; 85025; 87635; 94640; 99285; C9803; 94760; J7626

== ENCOUNTER 2020-11-23 18:29 | Emergency (ER) | payer MEDICARE, OTHER ==
[~2020-11-23] VITALS: Ht 165.1 cm; Wt 97.3 kg
[~2020-11-23 18:29] MED LIST changes: -ALBU8.5H8 INH; -BENZ1TAB7 PO; -CARI6CAP PO; -CLON2TAB11 PO; -DULO-31 PO; +ELET40TA PO; +ESCI10TA PO; +FLUT1DIS20 INH; -HYDR-3686 PO; -LEVO100T PO; +LEVO15TA5 PO; -LORA-269 PO; +OLAN10TA3 PO
[2020-11-23 19:20] LABS: BASOPHILS % (AUTO) 0.1 % (0-1); EOSINOPHILS # (AUTO) 0.2 X10'3 (0-0.9); EOSINOPHILS % (AUTO) 4.2 % (0-6); HEMATOCRIT 36.8 % (35.0-45.0); HEMOGLOBIN 12.3 g/dl (12.0-16.0); LYMPHOCYTES # (AUTO) 1.3 X10'3 (1.1-4.8); LYMPHOCYTES % (AUTO) 27.7 % (21-51); MEAN CORPUSCULAR HEMOGLOBIN 31.3 PG (27.0-31.0); MEAN CORPUSCULAR HGB CONC 33.5 g/dL (33.0-36.5); MEAN CORPUSCULAR VOLUME 93.6 FL (78-98); MONOCYTES # (AUTO) 0.5 X10'3 (0-0.9); MONOCYTES % (AUTO) 10.4 % (2-12); NEUTROPHILS # (AUTO) 2.7 X10'3 (1.8-7.7); NEUTROPHILS % (AUTO) 57.6 % (42-75); PLATELET COUNT 227 X10'3 (140-440); RED BLOOD COUNT 3.93 X10'6 (4.20-5.60); RED CELL DISTRIBUTION WIDTH 13.4 % (11.5-14.5); WHITE BLOOD COUNT 4.7 X10'3 (4.5-11.0)
[2020-11-23 19:30] LABS: ALANINE AMINOTRANSFERASE 22 U/L (12-78); ALBUMIN 3.6 G/DL (3.4-5.0); ALBUMIN/GLOBULIN RATIO 1.1 (1.1-1.5); ALKALINE PHOSPHATASE 125 IU/L (46-116); ANION GAP 8 (8-16); ASPARTATE AMINO TRANSFERASE 14 U/L (10-37); BILIRUBIN,TOTAL 0.2 MG/DL (0.1-1.0); BLOOD UREA NITROGEN 23 MG/DL (7-18); BUN/CREATININE RATIO 19.2 (6.6-38.0); CALCIUM 8.3 MG/DL (8.5-10.1); CHLORIDE 109 MMOL/L (99-107); GLUCOSE 145 MG/DL (70-104); POTASSIUM 3.9 MMOL/L (3.5-5.1); SODIUM 142 MMOL/L (135-145); TOTAL PROTEIN 6.9 G/DL (6.4-8.2); eGFR 45 ML/MIN
[2020-11-23 21:32] VITALS: BP 149/81
== END 2020-11-23 21:34 | disposition home or self-care (01) ==
LOC: ER 18:30
DX: R07.89 Other chest pain (principal); R00.2 Palpitations; R11.0 Nausea; F41.9 Anxiety disorder, unspecified; G43.909 Migraine, unspecified, not intractable, without status migrainosus; J45.909 Unspecified asthma, uncomplicated; E03.9 Hypothyroidism, unspecified; Z87.01 Personal history of pneumonia (recurrent); Z79.899 Other long term (current) drug therapy; Z88.0 Allergy status to penicillin; Z88.2 Allergy status to sulfonamides; Z88.6 Allergy status to analgesic agent; Z88.8 Allergy status to other drugs, medicaments and biological substances; Z91.010 Allergy to peanuts; Z91.018 Allergy to other foods
CPT/HCPCS: 36415; 71045; 80053; 83880; 84484; 85025; 93005; 99285

== ENCOUNTER 2020-11-29 23:32 | Emergency (ER) | payer MEDICARE, OTHER ==
[~2020-11-29] VITALS: Ht 165.1 cm; Wt 97.0 kg
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
[2020-11-30] MEDS ORDERED: ESCI10TA PO (00:39)
[2020-11-30 01:07] LABS: ALANINE AMINOTRANSFERASE 20 U/L (12-78); ALBUMIN 3.7 G/DL (3.4-5.0); ALBUMIN/GLOBULIN RATIO 1.2 (1.1-1.5); ALKALINE PHOSPHATASE 122 IU/L (46-116); ANION GAP 8 (8-16); ASPARTATE AMINO TRANSFERASE 12 U/L (10-37); BILIRUBIN,TOTAL 0.2 MG/DL (0.1-1.0); BLOOD UREA NITROGEN 20 MG/DL (7-18); BUN/CREATININE RATIO 15.4 (6.6-38.0); CALCIUM 8.7 MG/DL (8.5-10.1); CHLORIDE 111 MMOL/L (99-107); GLUCOSE 97 MG/DL (70-104); SODIUM 147 MMOL/L (135-145); TOTAL CARBON DIOXIDE 27.9 MMOL/L (24-32); TOTAL PROTEIN 6.7 G/DL (6.4-8.2); eGFR 41 ML/MIN
[2020-11-30 01:08] LABS: ETHANOL < 0.010 GM/DL (0.0-0.010)
[2020-11-30 01:22] LABS: BASOPHILS % (AUTO) 0 % (0-1); EOSINOPHILS # (AUTO) 0.2 X10'3 (0-0.9); EOSINOPHILS % (AUTO) 4.1 % (0-6); HEMATOCRIT 35.2 % (35.0-45.0); HEMOGLOBIN 11.9 g/dl (12.0-16.0); LYMPHOCYTES # (AUTO) 1.6 X10'3 (1.1-4.8); LYMPHOCYTES % (AUTO) 30.6 % (21-51); MEAN CORPUSCULAR HEMOGLOBIN 31.1 PG (27.0-31.0); MEAN CORPUSCULAR HGB CONC 33.8 g/dL (33.0-36.5); MEAN CORPUSCULAR VOLUME 92.2 FL (78-98); MEAN PLATELET VOLUME 8.1 FL (7.4-10.4); MONOCYTES # (AUTO) 0.6 X10'3 (0-0.9); MONOCYTES % (AUTO) 10.7 % (2-12); NEUTROPHILS # (AUTO) 2.9 X10'3 (1.8-7.7); NEUTROPHILS % (AUTO) 54.6 % (42-75); PLATELET COUNT 234 X10'3 (140-440); RED BLOOD COUNT 3.82 X10'6 (4.20-5.60); RED CELL DISTRIBUTION WIDTH 13.5 % (11.5-14.5); WHITE BLOOD COUNT 5.3 X10'3 (4.5-11.0)
[2020-11-30] MEDS ORDERED: LORazepam 1 MG tablet PO ONE (01:45)
[2020-11-30] MEDS ORDERED: ROPI1TAB6 PO (01:48)
[2020-11-30] MEDS ORDERED: ELET40TA10 PO (02:03)
[2020-11-30] MEDS: albuterol 2.5 MG/3 ML nebule NEB SCH ×4 (02:40→20:00)
[2020-11-30 03:07] LABS: URINE AMPHETAMINE SCREEN NEGATIVE (Neg); URINE BARBITUATE SCREEN NEGATIVE (Neg); URINE BENZODIAZEPINES SCREEN NEGATIVE (Neg); URINE CANNABINOID SCREEN NEGATIVE (Neg); URINE COCAINE SCREEN NEGATIVE (Neg); URINE METHADONE SCREEN NEGATIVE (Neg); URINE OPIATE SCREEN NEGATIVE (Neg); URINE PHENCYCLIDINE SCREEN NEGATIVE (Neg)
[2020-11-30] MEDS ORDERED: SUMAtriptan 25 MG tablet PO PRN (03:45)
[2020-11-30] MEDS ORDERED: ibuprofen tablet 400 MG TABLET PO ONE (04:15)
[2020-11-30] MEDS ORDERED: ibuprofen 200mg tablet PO ONE ×2 (04:15→11:50)
[2020-11-30] MEDS: ROPINIRole 1mg tablet PO SCH ×2 (04:17→08:16)
[2020-11-30 07:00] VITALS: BP 143/66
--- NOTE | 2020-11-30 07:02 | NUR ---
REPORT RECEIVED, CARE ASSUMED PT SLEEPING IN H13 IN NO NOTED DISTRESS
[2020-11-30] MEDS: budesonide 0.5mg/2ml UD nebule IH SCH ×2 (07:56→20:00)
[2020-11-30] MEDS ORDERED: METHYLFOLATE 15 MG PO SCH (08:00)
[2020-11-30] MEDS ORDERED: ELETRIPTAN HBR PO SCH ×2 (08:00)
[2020-11-30] MEDS ORDERED: ROPINIRole 0.25mg tablet PO SCH (08:00)
[2020-11-30] MEDS: topiramate 25mg tablet PO SCH ×2 (08:16→20:28)
[2020-11-30] MEDS: ESCITALOPRAM OXALATE 5 MG TABLET PO SCH (08:16)
[2020-11-30] MEDS: lamoTRIgine 100mg tablet PO SCH (08:16)
[2020-11-30] MEDS ORDERED: acetaminophen 325mg tablet PO ONE (18:55)
--- NOTE | 2020-11-30 19:49 | NUR ---
The patient was moved to bed 23 in the overflow area of the ER. She reports her sleep has been disturbed. She has been feeling depressed and having suicidal thoughts. When asked how her mood was tonight she stated "I'm not sure" She currently denies suicidal thoughts. She stated that she does have positive things to live for and stated she wanted to live for her children and grandchildren. SHe reports her energy is very low and her concentration has been imaired.
--- NOTE | 2020-11-30 20:54 | NUR ---
The patient appears to be sleeping
[2020-11-30] MEDS ORDERED: olanzapine 10mg tablet PO SCH (21:00)
--- NOTE | 2020-11-30 22:37 | NUR ---
The patient appears to be sleeping
--- NOTE | 2020-12-01 00:01 | NUR ---
The patient appears to be sleeping
[2020-12-01] MEDS: albuterol 2.5 MG/3 ML nebule NEB SCH ×2 (02:00→09:51)
--- NOTE | 2020-12-01 02:44 | NUR ---
The patient appears to be sleeping
--- NOTE | 2020-12-01 05:59 | NUR ---
The patient awake and up to use the bathroom. Covid swab collected and sent to the lab
--- NOTE | 2020-12-01 08:41 | NUR ---
Patient being seen by [facility] PEDRO Davis.
[2020-12-01] MEDS: ESCITALOPRAM OXALATE 5 MG TABLET PO SCH (08:50)
[2020-12-01] MEDS: ROPINIRole 1mg tablet PO SCH (08:50)
[2020-12-01] MEDS: lamoTRIgine 100mg tablet PO SCH (08:50)
[2020-12-01] MEDS: topiramate 25mg tablet PO SCH (08:50)
[2020-12-01] MEDS: budesonide 0.5mg/2ml UD nebule IH SCH (09:51)
== END 2020-12-01 10:44 | disposition home or self-care (01) ==
LOC: ER 23:33
DX: R45.851 Suicidal ideations (principal); Z20.822 Contact with and (suspected) exposure to COVID-19; F32.9 Major depressive disorder, single episode, unspecified; G43.909 Migraine, unspecified, not intractable, without status migrainosus; J45.909 Unspecified asthma, uncomplicated; E03.9 Hypothyroidism, unspecified; Z87.01 Personal history of pneumonia (recurrent); Z88.0 Allergy status to penicillin; Z88.1 Allergy status to other antibiotic agents; Z88.2 Allergy status to sulfonamides; Z88.5 Allergy status to narcotic agent; Z88.8 Allergy status to other drugs, medicaments and biological substances; Z91.010 Allergy to peanuts; Z91.018 Allergy to other foods; Z79.899 Other long term (current) drug therapy
CPT/HCPCS: 36415; 80053; 80305; 80320; 85025; 87635; 94640; 99285; C9803; 94760; J7626

== ENCOUNTER 2020-12-04 15:20 | Emergency (ER) | payer MEDICARE, OTHER ==
[~2020-12-04] VITALS: Ht 165.1 cm; Wt 99.0 kg
[~2020-12-04 15:20] MED LIST changes: -ELET40TA PO; +ELET40TA10 PO; -ROPI0.252 PO; +ROPI1TAB6 PO
[2020-12-04 15:49] VITALS: BP 139/86
[2020-12-04] MEDS ORDERED: DEXA6TAB6 PO (16:14)
[2020-12-04] MEDS ORDERED: AZIT-72 PO (16:14)
[2020-12-04] MEDS ORDERED: ALBU8HFA PO (16:14)
[2020-12-04] MEDS ORDERED: BENZ-16 PO (16:14)
== END 2020-12-04 17:25 | disposition home or self-care (01) ==
LOC: ER 15:21
DX: U07.1 COVID-19 (principal); J02.9 Acute pharyngitis, unspecified; R05 Cough; G43.909 Migraine, unspecified, not intractable, without status migrainosus; J45.909 Unspecified asthma, uncomplicated; E03.9 Hypothyroidism, unspecified; F31.9 Bipolar disorder, unspecified; F20.9 Schizophrenia, unspecified; Z98.890 Other specified postprocedural states; Z88.0 Allergy status to penicillin; Z88.2 Allergy status to sulfonamides; Z88.8 Allergy status to other drugs, medicaments and biological substances; Z88.5 Allergy status to narcotic agent; Z91.010 Allergy to peanuts; Z79.2 Long term (current) use of antibiotics; Z79.899 Other long term (current) drug therapy
CPT/HCPCS: 99283

== ENCOUNTER 2020-12-24 17:36 | Emergency (ER) | payer MEDICARE, OTHER ==
[~2020-12-24 17:36] MED LIST changes: +ALBU8HFA PO; +DEXA6TAB6 PO
== END 2020-12-24 20:27 | disposition left against medical advice (07) ==
LOC: ER 17:37
DX: G43.909 Migraine, unspecified, not intractable, without status migrainosus (principal); Z53.21 Procedure and treatment not carried out due to patient leaving prior to being seen by health care provider

== ENCOUNTER 2021-01-10 10:41 | Emergency (ER) | payer MEDICARE, OTHER ==
[~2021-01-10] VITALS: Ht 165.1 cm; Wt 97.7 kg
[~2021-01-10 10:41] MED LIST changes: -ALBU8HFA PO
[2021-01-10 10:46] VITALS: BP 132/53
== END 2021-01-10 13:29 | disposition home or self-care (01) ==
LOC: ER 10:42
DX: M25.511 Pain in right shoulder (principal); G43.909 Migraine, unspecified, not intractable, without status migrainosus; J45.909 Unspecified asthma, uncomplicated; E03.9 Hypothyroidism, unspecified; F31.9 Bipolar disorder, unspecified; F20.9 Schizophrenia, unspecified; Z87.01 Personal history of pneumonia (recurrent); Z98.890 Other specified postprocedural states; Z88.0 Allergy status to penicillin; Z88.2 Allergy status to sulfonamides; Z88.8 Allergy status to other drugs, medicaments and biological substances; Z88.5 Allergy status to narcotic agent; Z91.010 Allergy to peanuts; Z91.018 Allergy to other foods; Z79.899 Other long term (current) drug therapy
CPT/HCPCS: 73030; 99283

== ENCOUNTER 2021-04-26 16:15 | Emergency (ER) | payer MEDICARE, OTHER ==
[~2021-04-26] VITALS: Ht 165.1 cm; Wt 91.8 kg
[2021-04-26 16:59] LABS: WHITE BLOOD COUNT 3.7 X10'3 (4.5-11.0)
[2021-04-26 17:01] LABS: BASOPHILS % (AUTO) 0.1 % (0-1); EOSINOPHILS # (AUTO) 0.3 X10'3 (0-0.9); HEMATOCRIT 39.4 % (35.0-45.0); HEMOGLOBIN 13.1 g/dl (12.0-16.0); LYMPHOCYTES # (AUTO) 0.9 X10'3 (1.1-4.8); LYMPHOCYTES % (AUTO) 25.2 % (21-51); MEAN CORPUSCULAR HEMOGLOBIN 30.8 PG (27.0-31.0); MEAN CORPUSCULAR HGB CONC 33.3 g/dL (33.0-36.5); MEAN CORPUSCULAR VOLUME 92.7 FL (78-98); MEAN PLATELET VOLUME 8.2 FL (7.4-10.4); MONOCYTES # (AUTO) 0.4 X10'3 (0-0.9); MONOCYTES % (AUTO) 11.8 % (2-12); NEUTROPHILS # (AUTO) 2.1 X10'3 (1.8-7.7); NEUTROPHILS % (AUTO) 55.9 % (42-75); PLATELET COUNT 242 X10'3 (140-440); RED BLOOD COUNT 4.26 X10'6 (4.20-5.60); RED CELL DISTRIBUTION WIDTH 14.7 % (11.5-14.5)
[2021-04-26 17:06] LABS: ALANINE AMINOTRANSFERASE 25 U/L (12-78); ALBUMIN 3.8 G/DL (3.4-5.0); ALBUMIN/GLOBULIN RATIO 1.1 (1.1-1.5); ALKALINE PHOSPHATASE 76 IU/L (46-116); ANION GAP 6 (8-16); ASPARTATE AMINO TRANSFERASE 22 U/L (10-37); BILIRUBIN,TOTAL 0.2 MG/DL (0.1-1.0); BLOOD UREA NITROGEN 23 MG/DL (7-18); BUN/CREATININE RATIO 18.9 (6.6-38.0); CALCIUM 9.8 MG/DL (8.5-10.1); CHLORIDE 105 MMOL/L (99-107); CREATININE 1.22 MG/DL (0.40-0.90); GLUCOSE 106 MG/DL (70-104); LIPASE 98 U/L (73-393); POTASSIUM 4.6 MMOL/L (3.5-5.1); SODIUM 141 MMOL/L (135-145); TOTAL CARBON DIOXIDE 30.5 MMOL/L (24-32); TOTAL PROTEIN 7.3 G/DL (6.4-8.2); eGFR 44 ML/MIN
[2021-04-26 19:16] LABS: CLARITY,URINE CLEAR (Clear); COLOR,URINE YELLOW (Yellow); GLUCOSE, URINE NEGATIVE (Neg); KETONES,URINE NEGATIVE (Neg); LEUKOCYTE ESTERASE ,URINE NEGATIVE (Neg); NITRITES, URINE NEGATIVE (Neg); OCCULT BLOOD,URINE NEGATIVE (Neg); PROTEIN,URINE NEGATIVE (Neg); UROBILINOGEN,URINE 0.2 E.U/dL (0.2-1.0)
[2021-04-26 19:20] LABS: UA COLLECTION TYPE CLN CATCH MIDSTREAM
[2021-04-26] MEDS ORDERED: normal saline 1000ml 1,000 ML IV ONE ×2 (21:00)
[2021-04-26 22:56] VITALS: BP 146/54
[2021-04-27 11:18] LABS: C DIFF SPECIMEN=DIARRHEA? ACCEPTABLE; C DIFFICILE TOXINS A&B NEGATIVE (Neg)
== END 2021-04-26 23:03 | disposition home or self-care (01) ==
LOC: ER 16:16
DX: R19.7 Diarrhea, unspecified (principal); R10.9 Unspecified abdominal pain; R53.1 Weakness; G43.909 Migraine, unspecified, not intractable, without status migrainosus; J45.909 Unspecified asthma, uncomplicated; E03.9 Hypothyroidism, unspecified; Z87.01 Personal history of pneumonia (recurrent); Z88.0 Allergy status to penicillin; Z88.2 Allergy status to sulfonamides; Z88.5 Allergy status to narcotic agent; Z88.8 Allergy status to other drugs, medicaments and biological substances; Z91.010 Allergy to peanuts; Z79.899 Other long term (current) drug therapy
CPT/HCPCS: 36415; 74176; 80053; 81003; 83690; 85025; 87324; 87449; 96360; 99284; J7030

== ENCOUNTER 2021-05-02 17:47 | Emergency (ER) | payer MEDICARE, OTHER ==
[~2021-05-02] VITALS: Ht 165.1 cm; Wt 91.0 kg
[2021-05-02 18:38] LABS: BASOPHILS % (AUTO) 0 % (0-1); EOSINOPHILS # (AUTO) 0.1 X10'3 (0-0.9); HEMATOCRIT 39.7 % (35.0-45.0); HEMOGLOBIN 13.4 g/dl (12.0-16.0); LYMPHOCYTES # (AUTO) 1.4 X10'3 (1.1-4.8); LYMPHOCYTES % (AUTO) 25.7 % (21-51); MEAN CORPUSCULAR HEMOGLOBIN 30.8 PG (27.0-31.0); MEAN CORPUSCULAR HGB CONC 33.6 g/dL (33.0-36.5); MEAN CORPUSCULAR VOLUME 91.7 FL (78-98); MEAN PLATELET VOLUME 8.1 FL (7.4-10.4); MONOCYTES # (AUTO) 0.5 X10'3 (0-0.9); MONOCYTES % (AUTO) 9.2 % (2-12); NEUTROPHILS # (AUTO) 3.6 X10'3 (1.8-7.7); NEUTROPHILS % (AUTO) 64.1 % (42-75); PLATELET COUNT 275 X10'3 (140-440); RED BLOOD COUNT 4.33 X10'6 (4.20-5.60); RED CELL DISTRIBUTION WIDTH 13.9 % (11.5-14.5); WHITE BLOOD COUNT 5.6 X10'3 (4.5-11.0)
[2021-05-02 18:50] LABS: ALANINE AMINOTRANSFERASE 34 U/L (12-78); ALBUMIN/GLOBULIN RATIO 1.2 (1.1-1.5); ALKALINE PHOSPHATASE 87 IU/L (46-116); ANION GAP 11 (8-16); ASPARTATE AMINO TRANSFERASE 19 U/L (10-37); BILIRUBIN,TOTAL 0.3 MG/DL (0.1-1.0); BLOOD UREA NITROGEN 22 MG/DL (7-18); BUN/CREATININE RATIO 19.6 (6.6-38.0); CALCIUM 10.1 MG/DL (8.5-10.1); CHLORIDE 103 MMOL/L (99-107); CREATININE 1.12 MG/DL (0.40-0.90); GLUCOSE 124 MG/DL (70-104); LIPASE 95 U/L (73-393); POTASSIUM 4.2 MMOL/L (3.5-5.1); SODIUM 142 MMOL/L (135-145); TOTAL CARBON DIOXIDE 28.4 MMOL/L (24-32); TOTAL PROTEIN 7.3 G/DL (6.4-8.2); eGFR 48 ML/MIN
[2021-05-02 20:16] LABS: CLARITY,URINE CLEAR (Clear); COLOR,URINE YELLOW (Yellow); GLUCOSE, URINE NEGATIVE (Neg); KETONES,URINE NEGATIVE (Neg); LEUKOCYTE ESTERASE ,URINE NEGATIVE (Neg); NITRITES, URINE NEGATIVE (Neg); OCCULT BLOOD,URINE NEGATIVE (Neg); PROTEIN,URINE NEGATIVE (Neg); UA COLLECTION TYPE CLN CATCH MIDSTREAM; UROBILINOGEN,URINE 0.2 E.U/dL (0.2-1.0)
[2021-05-02 20:17] LABS: URINE HCG NEGATIVE (NEG)
[2021-05-02] MEDS ORDERED: ondansetron/PF 4mg/2ml inj IV ONE (21:10)
[2021-05-02] MEDS ORDERED: normal saline 1000ml 1,000 ML IV ONE (21:10)
[2021-05-02] MEDS ORDERED: famotidine/PF 10 mg/ml inj IV ONE (21:10)
[2021-05-02] MEDS ORDERED: pantoprazole 40MG/D5 100ML BAG 100 ML IV ONE (21:10)
[2021-05-02] MEDS ORDERED: pantoprazole 40MG/NS 100ML BAG 100 ML IV ONE (21:12)
[2021-05-02] MEDS ORDERED: ONDA4TAB6 PO (21:18)
[2021-05-02 21:49] VITALS: BP 149/77
== END 2021-05-02 22:04 | disposition home or self-care (01) ==
LOC: ER 17:48
DX: E86.0 Dehydration (principal); R11.0 Nausea; R19.7 Diarrhea, unspecified; G43.909 Migraine, unspecified, not intractable, without status migrainosus; J45.909 Unspecified asthma, uncomplicated; E03.9 Hypothyroidism, unspecified; F31.9 Bipolar disorder, unspecified; F20.9 Schizophrenia, unspecified; Z87.01 Personal history of pneumonia (recurrent); Z98.890 Other specified postprocedural states; Z88.2 Allergy status to sulfonamides; Z88.0 Allergy status to penicillin; Z88.8 Allergy status to other drugs, medicaments and biological substances; Z91.010 Allergy to peanuts; Z79.899 Other long term (current) drug therapy
CPT/HCPCS: 36415; 80053; 81003; 81025; 83690; 85025; 96374; 96375; 99284; C9113; J2405; J3490; J7030

== ENCOUNTER 2021-05-16 12:21 | Emergency (ER) | payer MEDICARE, OTHER ==
[~2021-05-16] VITALS: Ht 165.1 cm; Wt 89.1 kg
[~2021-05-16 12:21] MED LIST changes: +ONDA4TAB6 PO
[2021-05-16 12:52] VITALS: BP 147/64
[2021-05-16] MEDS ORDERED: pantoprazole 40mg Tablet.DR PO ONE (17:00)
[2021-05-16] MEDS ORDERED: LIDOcaine Viscous 15ml cup MM ONE (17:00)
[2021-05-16] MEDS ORDERED: FLUC100T PO (17:22)
[2021-05-16] MEDS ORDERED: ACET-1059 PO (17:29)
== END 2021-05-16 17:39 | disposition home or self-care (01) ==
LOC: ER 12:23
DX: R13.10 Dysphagia, unspecified (principal); B37.0 Candidal stomatitis; G43.909 Migraine, unspecified, not intractable, without status migrainosus; J45.909 Unspecified asthma, uncomplicated; E03.9 Hypothyroidism, unspecified; F31.9 Bipolar disorder, unspecified; F20.9 Schizophrenia, unspecified; Z87.01 Personal history of pneumonia (recurrent); Z98.890 Other specified postprocedural states; Z88.0 Allergy status to penicillin; Z88.2 Allergy status to sulfonamides; Z88.8 Allergy status to other drugs, medicaments and biological substances; Z88.5 Allergy status to narcotic agent; Z91.010 Allergy to peanuts; Z79.2 Long term (current) use of antibiotics; Z79.899 Other long term (current) drug therapy
CPT/HCPCS: 99283

== ENCOUNTER 2021-05-31 11:21 | Emergency (ER) | payer MEDICARE, OTHER ==
[~2021-05-31] VITALS: Ht 165.7 cm; Wt 89.5 kg
[2021-05-31 11:24] VITALS: BP 144/75
[2021-05-31] MEDS ORDERED: HYDR-3965 PO ×2 (12:54→12:56)
== END 2021-05-31 13:36 | disposition home or self-care (01) ==
LOC: ER 11:22
DX: G89.29 Other chronic pain (principal); M25.562 Pain in left knee; R22.42 Localized swelling, mass and lump, left lower limb; R26.89 Other abnormalities of gait and mobility; G43.909 Migraine, unspecified, not intractable, without status migrainosus; E03.9 Hypothyroidism, unspecified; J45.909 Unspecified asthma, uncomplicated; Z87.01 Personal history of pneumonia (recurrent); Z88.0 Allergy status to penicillin; Z88.2 Allergy status to sulfonamides; Z88.5 Allergy status to narcotic agent; Z88.8 Allergy status to other drugs, medicaments and biological substances; Z91.010 Allergy to peanuts; Z91.018 Allergy to other foods; Z79.899 Other long term (current) drug therapy; Z96.652 Presence of left artificial knee joint
CPT/HCPCS: 99283

== ENCOUNTER 2021-06-07 14:47 | Emergency (ER) | payer MEDICARE, OTHER ==
[~2021-06-07] VITALS: Ht 165.1 cm; Wt 90.0 kg
[2021-06-07 14:53] VITALS: BP 142/53
[2021-06-07] MEDS ORDERED: HYDROcodone/acetaminophen 10/325mg tab PO ONE ×2 (15:15→20:45)
[2021-06-07] MEDS ORDERED: ondansetron 4mg rapidly disintigrating tab PO ONE ×2 (15:15→20:45)
[2021-06-07] MEDS ORDERED: HYDR-3972 PO (20:17)
[2021-06-07] MEDS ORDERED: ONDA4TAB12 PO (20:17)
[2021-06-07] MEDS ORDERED: WALKERFR (20:17)
== END 2021-06-07 21:03 | disposition home or self-care (01) ==
LOC: ER 14:47
DX: M23.92 Unspecified internal derangement of left knee (principal); G89.29 Other chronic pain; M25.562 Pain in left knee; Z90.5 Acquired absence of kidney; G43.909 Migraine, unspecified, not intractable, without status migrainosus; J45.909 Unspecified asthma, uncomplicated; E03.9 Hypothyroidism, unspecified; Z87.01 Personal history of pneumonia (recurrent); Z88.0 Allergy status to penicillin; Z88.2 Allergy status to sulfonamides; Z88.8 Allergy status to other drugs, medicaments and biological substances; Z88.5 Allergy status to narcotic agent; Z91.010 Allergy to peanuts; Z91.041 Radiographic dye allergy status; Z79.899 Other long term (current) drug therapy; Z96.652 Presence of left artificial knee joint
CPT/HCPCS: 29105; 73564; 99284

== ENCOUNTER 2021-09-14 16:20 | Emergency (ER) | payer MEDICARE, OTHER ==
[~2021-09-14] VITALS: Ht 165.1 cm; Wt 90.9 kg
[~2021-09-14 16:20] MED LIST changes: +ONDA4TAB12 PO; +WALKERFR
[2021-09-14 16:30] VITALS: BP 127/75
[2021-09-14 17:26] LABS: BASOPHILS % (AUTO) 0 % (0-1); EOSINOPHILS # (AUTO) 0.2 X10'3 (0-0.9); EOSINOPHILS % (AUTO) 3.9 % (0-6); HEMATOCRIT 41.9 % (35.0-45.0); HEMOGLOBIN 13.7 g/dl (12.0-16.0); LYMPHOCYTES # (AUTO) 1.7 X10'3 (1.1-4.8); LYMPHOCYTES % (AUTO) 38.7 % (21-51); MEAN CORPUSCULAR HGB CONC 32.7 g/dL (33.0-36.5); MEAN CORPUSCULAR VOLUME 91.5 FL (78-98); MEAN PLATELET VOLUME 7.4 FL (7.4-10.4); MONOCYTES # (AUTO) 0.4 X10'3 (0-0.9); MONOCYTES % (AUTO) 8.7 % (2-12); NEUTROPHILS # (AUTO) 2.2 X10'3 (1.8-7.7); NEUTROPHILS % (AUTO) 48.7 % (42-75); PLATELET COUNT 248 X10'3 (140-440); RED BLOOD COUNT 4.58 X10'6 (4.20-5.60); RED CELL DISTRIBUTION WIDTH 13.6 % (11.5-14.5); WHITE BLOOD COUNT 4.4 X10'3 (4.5-11.0)
[2021-09-14 17:37] LABS: ALANINE AMINOTRANSFERASE 17 U/L (12-78); ALBUMIN 4.1 G/DL (3.4-5.0); ALBUMIN/GLOBULIN RATIO 1.3 (1.1-1.5); ALKALINE PHOSPHATASE 83 IU/L (46-116); ANION GAP 8 (8-16); ASPARTATE AMINO TRANSFERASE 13 U/L (10-37); BILIRUBIN,TOTAL 0.4 MG/DL (0.1-1.0); BLOOD UREA NITROGEN 13 MG/DL (7-18); BUN/CREATININE RATIO 11.3 (6.6-38.0); CALCIUM 9.5 MG/DL (8.5-10.1); CHLORIDE 104 MMOL/L (99-107); CREATININE 1.15 MG/DL (0.40-0.90); GLUCOSE 87 MG/DL (70-104); LIPASE 92 U/L (73-393); POTASSIUM 4.2 MMOL/L (3.5-5.1); SODIUM 141 MMOL/L (135-145); TOTAL CARBON DIOXIDE 28.6 MMOL/L (24-32); TOTAL PROTEIN 7.3 G/DL (6.4-8.2); eGFR 47 ML/MIN
[2021-09-14 18:01] LABS: CLARITY,URINE CLEAR (Clear); COLOR,URINE YELLOW (Yellow); GLUCOSE, URINE NEGATIVE (Neg); KETONES,URINE NEGATIVE (Neg); LEUKOCYTE ESTERASE ,URINE NEGATIVE (Neg); NITRITES, URINE NEGATIVE (Neg); OCCULT BLOOD,URINE NEGATIVE (Neg); PROTEIN,URINE NEGATIVE (Neg); UROBILINOGEN,URINE 0.2 E.U/dL (0.2-1.0)
[2021-09-14 18:02] LABS: UA COLLECTION TYPE CLN CATCH MIDSTREAM
[2021-09-14] MEDS ORDERED: pantoprazole 40mg Tablet.DR PO STA (20:57)
--- NOTE | 2021-09-14 21:06 | NUR ---
PO MED GIVEN
[2021-09-14] MEDS ORDERED: PANT40SU2 PO (21:30)
== END 2021-09-14 21:47 | disposition home or self-care (01) ==
LOC: ER 16:21
DX: R10.10 Upper abdominal pain, unspecified (principal); R19.7 Diarrhea, unspecified; G43.909 Migraine, unspecified, not intractable, without status migrainosus; J45.909 Unspecified asthma, uncomplicated; E03.9 Hypothyroidism, unspecified; F31.9 Bipolar disorder, unspecified; F20.9 Schizophrenia, unspecified; Z87.01 Personal history of pneumonia (recurrent); Z98.890 Other specified postprocedural states; Z88.0 Allergy status to penicillin; Z88.2 Allergy status to sulfonamides; Z88.8 Allergy status to other drugs, medicaments and biological substances; Z88.5 Allergy status to narcotic agent; Z91.010 Allergy to peanuts; Z79.899 Other long term (current) drug therapy
CPT/HCPCS: 36415; 80053; 81003; 83690; 85025; 99283

== ENCOUNTER 2021-12-01 07:20 | Emergency (ER) | payer MEDICARE, OTHER ==
[~2021-12-01] VITALS: Ht 165.1 cm; Wt 84.9 kg
[~2021-12-01 07:20] MED LIST changes: +PANT40SU2 PO
[2021-12-01 10:06] LABS: ALANINE AMINOTRANSFERASE 14 U/L (12-78); ALBUMIN/GLOBULIN RATIO 1.2 (1.1-1.5); ALKALINE PHOSPHATASE 90 IU/L (46-116); ANION GAP 11 (8-16); ASPARTATE AMINO TRANSFERASE 18 U/L (10-37); BILIRUBIN,TOTAL 0.3 MG/DL (0.1-1.0); BLOOD UREA NITROGEN 10 MG/DL (7-18); BUN/CREATININE RATIO 9.5 (6.6-38.0); CALCIUM 9.2 MG/DL (8.5-10.1); CHLORIDE 109 MMOL/L (99-107); CREATININE 1.05 MG/DL (0.40-0.90); GLUCOSE 110 MG/DL (70-104); POTASSIUM 4.1 MMOL/L (3.5-5.1); SODIUM 142 MMOL/L (135-145); TOTAL CARBON DIOXIDE 21.8 MMOL/L (24-32); TOTAL PROTEIN 7.3 G/DL (6.4-8.2); eGFR 52 ML/MIN
[2021-12-01 10:15] LABS: BASOPHILS % (AUTO) 0.1 % (0-1); EOSINOPHILS # (AUTO) 0.1 X10'3 (0-0.9); EOSINOPHILS % (AUTO) 4.3 % (0-6); HEMATOCRIT 41.9 % (35.0-45.0); HEMOGLOBIN 14.2 g/dl (12.0-16.0); LYMPHOCYTES # (AUTO) 1.2 X10'3 (1.1-4.8); LYMPHOCYTES % (AUTO) 34.6 % (21-51); MEAN CORPUSCULAR HEMOGLOBIN 31.8 PG (27.0-31.0); MEAN CORPUSCULAR HGB CONC 33.8 g/dL (33.0-36.5); MEAN PLATELET VOLUME 8.2 FL (7.4-10.4); MONOCYTES # (AUTO) 0.3 X10'3 (0-0.9); MONOCYTES % (AUTO) 8.6 % (2-12); NEUTROPHILS # (AUTO) 1.8 X10'3 (1.8-7.7); NEUTROPHILS % (AUTO) 52.4 % (42-75); PLATELET COUNT 236 X10'3 (140-440); RED BLOOD COUNT 4.46 X10'6 (4.20-5.60); RED CELL DISTRIBUTION WIDTH 14.1 % (11.5-14.5); WHITE BLOOD COUNT 3.4 X10'3 (4.5-11.0)
[2021-12-01] MEDS ORDERED: dexamethasone sod phosphate 10mg/ml inj IV STA (10:44)
[2021-12-01] MEDS ORDERED: normal saline 1000ML IV soln IVB ONE (10:45)
[2021-12-01] MEDS ORDERED: LORazepam 2 mg/ml vial IV ONE (10:45)
[2021-12-01] MEDS ORDERED: ketorolac trometh. 30mg/ml inj. IV ONE (10:45)
[2021-12-01] MEDS ORDERED: metoclopramide 5 mg/ml inj IV ONE (10:45)
[2021-12-01 12:03] VITALS: BP 167/99
[2021-12-01] MEDS ORDERED: acetaminophen 325mg tablet PO ONE (12:30)
== END 2021-12-01 13:07 | disposition home or self-care (01) ==
LOC: ER 07:21
DX: G43.809 Other migraine, not intractable, without status migrainosus (principal); J45.909 Unspecified asthma, uncomplicated; F31.9 Bipolar disorder, unspecified; Z88.0 Allergy status to penicillin; Z88.2 Allergy status to sulfonamides; Z88.5 Allergy status to narcotic agent; Z88.8 Allergy status to other drugs, medicaments and biological substances
CPT/HCPCS: 36415; 70450; 80053; 85025; 85651; 96361; 96374; 96375; 99284; J1100; J1885; J2060; J2765; J7030

== ENCOUNTER 2022-05-31 05:51 | Day surgery (SDC) | payer MEDICARE, OTHER ==
[2022-05-20 12:40] LABS: BASOPHILS % (AUTO) 0.3 % (0-1); EOSINOPHILS # (AUTO) 0.1 X10'3 (0-0.9); EOSINOPHILS % (AUTO) 2.6 % (0-6); LYMPHOCYTES # (AUTO) 1.1 X10'3 (1.1-4.8); LYMPHOCYTES % (AUTO) 22.7 % (21-51); MEAN CORPUSCULAR HEMOGLOBIN 30.3 PG (27.0-31.0); MEAN CORPUSCULAR HGB CONC 32.8 g/dL (33.0-36.5); MEAN CORPUSCULAR VOLUME 92.5 FL (78-98); MEAN PLATELET VOLUME 7.7 FL (7.4-10.4); MONOCYTES # (AUTO) 0.3 X10'3 (0-0.9); MONOCYTES % (AUTO) 7.5 % (2-12); NEUTROPHILS # (AUTO) 3.1 X10'3 (1.8-7.7); NEUTROPHILS % (AUTO) 66.9 % (42-75); PRE OP HEMATOCRIT 36.5 % (35.0-45.0); PRE OP PLATELET COUNT 216 X10'3 (140-440); RED BLOOD COUNT 3.94 X10'6 (4.20-5.60); RED CELL DISTRIBUTION WIDTH 15.1 % (11.5-14.5)
[2022-05-20 12:56] LABS: ALBUMIN 3.7 G/DL (3.4-5.0); ALBUMIN/GLOBULIN RATIO 1.2 (1.1-1.5); ALKALINE PHOSPHATASE 81 IU/L (46-116); BLOOD UREA NITROGEN 16 MG/DL (7-18); BUN/CREATININE RATIO 12.4 (6.6-38.0); CALCIUM 8.6 MG/DL (8.5-10.1); CHLORIDE 107 MMOL/L (99-107); CREATININE 1.29 MG/DL (0.40-0.90); PRE OP ALT 26 U/L (30-65); PRE OP ANION GAP 6 (8-16); PRE OP AST 26 U/L (10-37); PRE OP BILIRUB, TOTAL 0.3 MG/DL (0.0-1.0); PRE OP GLUCOSE 99 MG/DL (70-104); PRE OP POTASSIUM 3.9 MMOL/L (3.4-5.1); PRE OP SODIUM 140 MMOL/L (135-145); TOTAL CARBON DIOXIDE 26.6 MMOL/L (24-32); TOTAL PROTEIN 6.8 G/DL (6.4-8.2); eGFR 41 ML/MIN
[2022-05-31] VITALS (30 sets, daily range): BP systolic 98–139; BP diastolic 36–82
[~2022-05-31] VITALS: Ht 165.1 cm; Wt 88.3 kg
[~2022-05-31 05:51] MED LIST changes: +CARI3CAP PO; -DEXA6TAB6 PO; -FLUT1DIS20 INH; +HYDR50CA PO; -OLAN10TA3 PO; -ONDA4TAB6 PO; -PANT40SU2 PO; +PRAZ1CAP5 PO; +ROPI2TAB29 PO; -WALKERFR; +acetaminophen 325mg tablet PO ONE; +ceFAZolin inj. 2,000 MG in dextrose 5%-water 100 ML IV ONE; +celeCOXIB 100mg capsule PO ONE; +famotidine 20mg tablet PO ONE; +gabapentin 300mg capsule PO ONE; +metoclopramide 5 mg/ml inj IV ONE; +oxyCODONE SR 10mg (sust. release) tab -2 tabs (20mg) PO ONE; +ringers solution, lacted 1,000 ML IV SCH; +tranexamic acid inj. 1,000 MG in normal saline IV soln 100ML IV ONE; +vancomycin 1,500 MG in NS 300ml IV soln IV ONE
[2022-05-31] MEDS ORDERED: magnesium hydroxide 30ml (MOM) UD suspension PO PRN (07:15)
[2022-05-31] MEDS ORDERED: ondansetron/PF 4mg/2ml inj IV PRN ×2 (07:15→11:25)
[2022-05-31] MEDS ORDERED: diphenhydrAMINE 25mg capsule PO PRN ×2 (07:15)
[2022-05-31] MEDS ORDERED: naloxone 0.4 mg/ml inj IV PRN (07:15)
[2022-05-31] MEDS ORDERED: bisacodyl 10mg suppository rectal RC PRN (07:15)
[2022-05-31] MEDS ORDERED: HYDROmorphone inj. 0.5 MG/0.5 ML DISP.SYRIN IV PRN (07:15)
[2022-05-31] MEDS ORDERED: HYDROmorphone 1 mg/ml syringe IV PRN (07:15)
[2022-05-31] MEDS ORDERED: SUMAtriptan 25 MG tablet PO PRN (07:15)
[2022-05-31] MEDS ORDERED: acetaminophen 325mg tablet PO PRN (07:15)
--- NOTE | 2022-05-31 07:30 | NUR ---
PALPABLE PEDAL PULSE TO TOP OF LEFT FOOT, MARKED W/ PEN. PT SHOWERED X 5 W/ CHG PER PROTOCOL. PT ALSO STATES SHE READ OVER HER TOTAL JOINT BOOKLET. PT DID NOT WATCH VIDEO LINK BUT STATES UNDERSTANDING RE: SURGERY CARE. CSM AKIKO [place].
[2022-05-31] MEDS ORDERED: ascorbic acid 500mg tablet PO SCH ×2 (08:00→20:00)
[2022-05-31] MEDS ORDERED: ESCITALOPRAM OXALATE 5 MG TABLET PO SCH (08:00)
[2022-05-31] MEDS ORDERED: LEVOMEFOLATE 15 MG PO SCH (08:00)
[2022-05-31] MEDS ORDERED: gabapentin 300mg capsule PO SCH (08:00)
[2022-05-31] MEDS ORDERED: ROPINIRole 1mg tablet PO SCH ×3 (08:00→17:00)
[2022-05-31] MEDS ORDERED: lamoTRIgine 100mg tablet PO SCH (08:00)
[2022-05-31] MEDS ORDERED: topiramate 100mg tablet PO SCH (08:00)
[2022-05-31] MEDS ORDERED: aspirin 325mg tablet PO SCH (08:30)
[2022-05-31] MEDS ORDERED: cloNIDine hcl/PF 100mcg/ml inj ONE (09:30)
[2022-05-31] MEDS ORDERED: vancomycin 1,000mg inj ONE (09:31)
[2022-05-31] MEDS ORDERED: epiNEPHrine 1 mg/ml inj ONE (09:31)
[2022-05-31] MEDS ORDERED: ROPIVAcaine 0.5% (5mg/ml) 30ml vial ONE ×2 (09:31→11:16)
[2022-05-31] MEDS ORDERED: ketorolac trometh. 30mg/ml inj. ONE (09:31)
[2022-05-31] MEDS ORDERED: fentaNYL/PF 50MCG/1 ML 2ML syringe ONE (10:06)
[2022-05-31] MEDS ORDERED: midazolam 1 mg/ML 2ml injection ONE ×2 (10:07)
[2022-05-31] MEDS ORDERED: epiNEPHrine 1 MG/ML 1 ml ampule **BRONCH ONLY SQ ONE (10:50)
[2022-05-31] MEDS ORDERED: ketorolac trometh. 30mg/ml inj. IV ONE (10:50)
[2022-05-31] MEDS ORDERED: cloNIDine hcl/PF 100mcg/ml inj EP ONE (10:50)
[2022-05-31] MEDS ORDERED: ROPIVAcaine 0.5% (5mg/ml) 30ml vial IJ ONE (10:50)
[2022-05-31] MEDS ORDERED: meperidine/PF 25mg/ml syringe IV PRN ×2 (11:25)
[2022-05-31] MEDS ORDERED: ringers solution, lacted 1,000 ML IV SCH (11:25)
[2022-05-31] MEDS ORDERED: morphine 2 MG/ML inj. syringe IV PRN (11:25)
[2022-05-31] MEDS ORDERED: proCHLORperazine 10 MG/2 ml inj IV PRN (11:25)
[2022-05-31] MEDS ORDERED: morphine 4 MG/ML inj SYRINge IV PRN (11:25)
--- NOTE | 2022-05-31 11:36 | NUR ---
Received from OR via , accompanied by Anesthesiologist GEMMA AND OR NURSE and report given by Anesthesiolgist. PT IS DROWSY YET RESPONDS TO VERBAL STIMULI. PT DENIES PAIN OR DISCOMFORT. VSS Addendum: 05/31/22 at 1826 by Umu Luz RN Amended: Links added.
[2022-05-31] MEDS: meperidine/PF 25mg/ml syringe IV PRN ×2 (13:13→14:06)
[2022-05-31] MEDS ORDERED: tranexamic acid inj. 1,000 MG in normal saline 100ml IV soln 90 ML IV ONE (15:00)
--- NOTE | 2022-05-31 16:16 | NUR ---
PATIENT TAKEN TO ROOM WITH ALL BELONGINGS AND HOOKED UP TO MONITORS IN ROOM AND GIVEN CALL LIGHT, REPORT GIVEN TO RN WHO HAS TAKEN OVER PATIENT CARE. Addendum: 05/31/22 at 1648 by Umu Luz RN Amended: Links added.
--- NOTE | 2022-05-31 16:27 | NUR ---
Patient arrived onto the floor at 1615 which is approximately 5 hours after surgery. Postop vital signs were monitored in the recovery room. The Tranexamic acid was due at 1436 but the patient was not on the floor at the time. The Tranexamic acid was given upon arrival on the unit. Notified pharmacy and they said that it does not need to be retimed. Will administer the Cefazolin after the tranexamic acid infuses per pharmacy instructions.
[2022-05-31] MEDS: HYDROcodone/acetaminophen 10/325mg tab PO PRN ×2 (16:57→21:54)
--- NOTE | 2022-05-31 18:39 | NUR ---
Problems reprioritized. Patient report given, questions answered & plan of care reviewed with PEDRO Kearns.
[2022-05-31] MEDS ORDERED: VANCOMYCIN 1,500MG inj. 1,500 MG in normal saline 500ml IV soln 300 ML IV ONE (20:00)
[2022-05-31] MEDS: potassium cl 20mEq in 1/2 NS 1,000 ML IV SCH ×2 (20:00→23:15)
[2022-05-31] MEDS: gabapentin 300mg capsule PO SCH (20:26)
[2022-05-31] MEDS: multivitamins, therapeutics tablet PO SCH (20:26)
[2022-05-31] MEDS ORDERED: sennosides 8.6mg tablet PO SCH (21:00)
[2022-05-31] MEDS ORDERED: CARIPRAZINE 1.5 MG CAPSULE PO SCH (21:00)
[2022-05-31] MEDS ORDERED: prazosin 1mg capsule PO SCH (21:00)
[2022-05-31] MEDS ORDERED: hydrOXYzine 25 MG tablet PO SCH (21:00)
[2022-06-01 02:00] VITALS: BP 111/49
[2022-06-01] MEDS: HYDROcodone/acetaminophen 10/325mg tab PO PRN ×2 (05:13→09:50)
[2022-06-01 07:00] VITALS: BP 133/74
[2022-06-01 07:20] LABS: BASOPHILS % (AUTO) 0.2 % (0-1); EOSINOPHILS % (AUTO) 0.2 % (0-6); HEMATOCRIT 34.2 % (35.0-45.0); HEMOGLOBIN 11.3 g/dl (12.0-16.0); LYMPHOCYTES % (AUTO) 15.1 % (21-51); MEAN CORPUSCULAR HEMOGLOBIN 30.8 PG (27.0-31.0); MEAN CORPUSCULAR VOLUME 93.2 FL (78-98); MEAN PLATELET VOLUME 7.8 FL (7.4-10.4); MONOCYTES # (AUTO) 0.6 X10'3 (0-0.9); MONOCYTES % (AUTO) 9.4 % (2-12); NEUTROPHILS # (AUTO) 4.9 X10'3 (1.8-7.7); NEUTROPHILS % (AUTO) 75.1 % (42-75); PLATELET COUNT 237 X10'3 (140-440); RED BLOOD COUNT 3.67 X10'6 (4.20-5.60); RED CELL DISTRIBUTION WIDTH 14.6 % (11.5-14.5); WHITE BLOOD COUNT 6.5 X10'3 (4.5-11.0)
[2022-06-01 07:38] LABS: ANION GAP 6 (8-16); CHLORIDE 109 MMOL/L (99-107); POTASSIUM 4.2 MMOL/L (3.5-5.1); SODIUM 140 MMOL/L (135-145); TOTAL CARBON DIOXIDE 24.8 MMOL/L (24-32)
[2022-06-01] MEDS ORDERED: lamoTRIgine 100mg tablet PO SCH (08:00)
[2022-06-01] MEDS ORDERED: topiramate 100mg tablet PO SCH (08:00)
[2022-06-01] MEDS ORDERED: ESCITALOPRAM OXALATE 5 MG TABLET PO SCH (08:00)
[2022-06-01] MEDS ORDERED: aspirin 325mg tablet PO SCH (08:30)
[2022-06-01] MEDS: gabapentin 300mg capsule PO SCH (09:36)
[2022-06-01] MEDS: multivitamins, therapeutics tablet PO SCH (09:37)
--- NOTE | 2022-06-01 10:48 | NUR ---
Joint surgery consult: Pt s/p L knee surgery this admit per EMR. Pt seen by RD for written/verbal high protein diet ed w/ RD contact information provided. Pt reports peanut allergy and dislikes ham/pork; dietary notified. RD encouraged pt to contact dietitian's office if further nutrition questions/concerns. Addendum: 06/01/22 at [address] Amended: Links added.
--- NOTE | 2022-06-01 12:55 | NUR ---
Patients daughter was here, to pick her left for lunch and will be back. Patient is ready to be discharged.
--- NOTE | 2022-06-01 13:26 | NUR ---
IV taken out, canula intact. Patient wheeled out with daughter to car.
[2022-06-01] MEDS ORDERED: celeCOXIB 100mg capsule PO SCH (20:00)
[2022-06-09] MEDS ORDERED: LAMO200T2 PO (05:41)
[2022-06-09] MEDS ORDERED: ROPI2TAB7 PO (05:41)
== END 2022-06-01 13:30 | disposition home or self-care (01) ==
LOC: PAS 05:51 → ORTHO 4S 16:44 → PAS 06-01 13:30
PROVIDERS: ATTEND Orthopaedic Surgery
DX: T84.063A Wear of articular bearing surface of internal prosthetic left knee joint, initial encounter (principal); M19.072 Primary osteoarthritis, left ankle and foot; M19.071 Primary osteoarthritis, right ankle and foot; E66.9 Obesity, unspecified; Z68.31 Body mass index [BMI] 31.0-31.9, adult; G47.30 Sleep apnea, unspecified; J45.909 Unspecified asthma, uncomplicated; F41.9 Anxiety disorder, unspecified; F32.9 Major depressive disorder, single episode, unspecified; G43.909 Migraine, unspecified, not intractable, without status migrainosus; D64.9 Anemia, unspecified; G25.81 Restless legs syndrome; G89.18 Other acute postprocedural pain; Z88.5 Allergy status to narcotic agent; Z88.0 Allergy status to penicillin; Z88.2 Allergy status to sulfonamides; Z91.041 Radiographic dye allergy status; Z88.8 Allergy status to other drugs, medicaments and biological substances; Z87.891 Personal history of nicotine dependence; Z79.899 Other long term (current) drug therapy; Z79.82 Long term (current) use of aspirin; Z90.5 Acquired absence of kidney; Z98.890 Other specified postprocedural states; Z96.651 Presence of right artificial knee joint; Y83.8 Other surgical procedures as the cause of abnormal reaction of the patient, or of later complication, without mention of misadventure at the time of the procedure; Y92.89 Other specified places as the place of occurrence of the external cause
CPT/HCPCS: 27486; 36415; 64447; 73560; 80051; 80053; 82948; 85025; 86885; 86900; 86901; 87081; 97110; 97116; 97161; A6454; C1776; J0171; J0690; J0735; J1885; J2175; J2250; J2765; J2795; J3010; J3370; J3490; J7030; J7040; J7060; J7120; Q0177; Z7506; Z7508; Z7512; A4215; A4615; A7000; A9272; G0378

== ENCOUNTER 2022-07-16 17:08 | Emergency (ER) | payer MEDICARE, OTHER ==
[~2022-07-16] VITALS: Ht 167.6 cm; Wt 87.3 kg
[~2022-07-16 17:08] MED LIST changes: -LAMO100T40 PO; +LAMO200T2 PO; -ROPI2TAB29 PO; +ROPI2TAB7 PO; -acetaminophen 325mg tablet PO ONE; -ceFAZolin inj. 2,000 MG in dextrose 5%-water 100 ML IV ONE; -celeCOXIB 100mg capsule PO ONE; -famotidine 20mg tablet PO ONE; -gabapentin 300mg capsule PO ONE; -metoclopramide 5 mg/ml inj IV ONE; -oxyCODONE SR 10mg (sust. release) tab -2 tabs (20mg) PO ONE; -ringers solution, lacted 1,000 ML IV SCH; -tranexamic acid inj. 1,000 MG in normal saline IV soln 100ML IV ONE; -vancomycin 1,500 MG in NS 300ml IV soln IV ONE
[2022-07-16 18:25] VITALS: BP 146/64
[2022-07-16] MEDS ORDERED: normal saline 1000ML IV soln IVB ONE (18:40)
[2022-07-16 19:00] LABS: BASOPHILS % (AUTO) 0.8 % (0-1); EOSINOPHILS # (AUTO) 0.1 X10'3 (0-0.9); EOSINOPHILS % (AUTO) 2.3 % (0-6); HEMATOCRIT 28.2 % (35.0-45.0); HEMOGLOBIN 8.9 g/dl (12.0-16.0); LYMPHOCYTES # (AUTO) 0.7 X10'3 (1.1-4.8); LYMPHOCYTES % (AUTO) 17.8 % (21-51); MEAN CORPUSCULAR HEMOGLOBIN 27.8 PG (27.0-31.0); MEAN CORPUSCULAR HGB CONC 31.6 g/dL (33.0-36.5); MEAN CORPUSCULAR VOLUME 87.9 FL (78-98); MEAN PLATELET VOLUME 8.3 FL (7.4-10.4); MONOCYTES # (AUTO) 0.3 X10'3 (0-0.9); MONOCYTES % (AUTO) 8.4 % (2-12); NEUTROPHILS # (AUTO) 2.8 X10'3 (1.8-7.7); NEUTROPHILS % (AUTO) 70.7 % (42-75); PLATELET COUNT 245 X10'3 (140-440); RED BLOOD COUNT 3.21 X10'6 (4.20-5.60); RED CELL DISTRIBUTION WIDTH 15.5 % (11.5-14.5); WHITE BLOOD COUNT 3.9 X10'3 (4.5-11.0)
[2022-07-16 19:11] LABS: D-DIMER 1.84 MG/L FEU (0-0.50)
[2022-07-16 19:14] LABS: ALANINE AMINOTRANSFERASE 14 U/L (12-78); ALBUMIN 3.8 G/DL (3.4-5.0); ALBUMIN/GLOBULIN RATIO 1.3 (1.1-1.5); ALKALINE PHOSPHATASE 74 IU/L (46-116); ANION GAP 9 (8-16); ASPARTATE AMINO TRANSFERASE 17 U/L (10-37); BILIRUBIN,TOTAL 0.3 MG/DL (0.1-1.0); BLOOD UREA NITROGEN 18 MG/DL (7-18); CALCIUM 9.5 MG/DL (8.5-10.1); CHLORIDE 109 MMOL/L (99-107); GLUCOSE 101 MG/DL (70-104); POTASSIUM 3.9 MMOL/L (3.5-5.1); SODIUM 143 MMOL/L (135-145); TOTAL CARBON DIOXIDE 24.6 MMOL/L (24-32); TOTAL PROTEIN 6.7 G/DL (6.4-8.2); eGFR 45 ML/MIN
[2022-07-16 19:22] LABS: MAGNESIUM 2.2 MG/DL (1.5-2.4)
[2022-07-16 19:28] LABS: CLARITY,URINE CLEAR (Clear); GLUCOSE, URINE NEGATIVE (Neg); KETONES,URINE NEGATIVE (Neg); LEUKOCYTE ESTERASE ,URINE NEGATIVE (Neg); NITRITES, URINE NEGATIVE (Neg); OCCULT BLOOD,URINE TRACE-INTACT (Neg); PROTEIN,URINE NEGATIVE (Neg); UROBILINOGEN,URINE 0.2 E.U/dL (0.2-1.0)
[2022-07-16 19:37] LABS: COLOR,URINE STRAW (Yellow); UA COLLECTION TYPE VOIDED
[2022-07-16 19:38] LABS: BACTERIA,URINE NONE SEEN /HPF (Neg); RBC,URINE 0-2 /HPF (0-2); SQUAMOUS EPITHELIAL CELL,UR FEW /LPF (FEW); WBC,URINE NONE SEEN /HPF (0-4)
[2022-07-16] MEDS ORDERED: acetaminophen 325mg tablet PO ONE (22:15)
== END 2022-07-17 00:05 | disposition home or self-care (01) ==
LOC: ER 17:08
DX: R55 Syncope and collapse (principal); G43.909 Migraine, unspecified, not intractable, without status migrainosus; J45.909 Unspecified asthma, uncomplicated; E03.9 Hypothyroidism, unspecified; F31.9 Bipolar disorder, unspecified; Z88.0 Allergy status to penicillin; Z88.2 Allergy status to sulfonamides
CPT/HCPCS: 36415; 71045; 80053; 81001; 83735; 83880; 84484; 85025; 85379; 93005; 93970; 96360; 96361; 99285; J7030

== ENCOUNTER 2023-06-24 13:58 | Emergency (ER) | payer MEDICARE, OTHER ==
[~2023-06-24] VITALS: Ht 165.1 cm; Wt 80.9 kg
[~2023-06-24 13:58] MED LIST changes: +ROPI1TAB47 PO; -ROPI1TAB6 PO; +ROPI2TAB53 PO; -ROPI2TAB7 PO
[2023-06-24 14:35] LABS: BASOPHILS % (AUTO) 0.8 % (0-1); EOSINOPHILS # (AUTO) 0.1 X10'3 (0-0.9); EOSINOPHILS % (AUTO) 3.6 % (0-6); HEMATOCRIT 31.6 % (35.0-45.0); HEMOGLOBIN 10.2 g/dl (12.0-16.0); LYMPHOCYTES # (AUTO) 1.2 X10'3 (1.1-4.8); MEAN CORPUSCULAR HGB CONC 32.3 g/dL (33.0-36.5); MEAN CORPUSCULAR VOLUME 86.7 FL (78-98); MEAN PLATELET VOLUME 7.9 FL (7.4-10.4); MONOCYTES # (AUTO) 0.3 X10'3 (0-0.9); MONOCYTES % (AUTO) 7.4 % (2-12); NEUTROPHILS # (AUTO) 1.9 X10'3 (1.8-7.7); NEUTROPHILS % (AUTO) 54.2 % (42-75); PLATELET COUNT 234 X10'3 (140-440); RED BLOOD COUNT 3.64 X10'6 (4.20-5.60); RED CELL DISTRIBUTION WIDTH 14.7 % (11.5-14.5); WHITE BLOOD COUNT 3.5 X10'3 (4.5-11.0)
[2023-06-24 14:43] LABS: ALBUMIN 3.7 G/DL (3.4-5.0); ANION GAP 7 (8-16); BLOOD UREA NITROGEN 18 MG/DL (7-18); CALCIUM 8.8 MG/DL (8.5-10.1); CHLORIDE 111 MMOL/L (99-107); GLUCOSE 114 MG/DL (70-104); LIPASE 225 U/L (16-77); POTASSIUM 3.9 MMOL/L (3.5-5.1); SODIUM 144 MMOL/L (135-145); TOTAL CARBON DIOXIDE 25.6 MMOL/L (24-32); eCRCL 39 ML/MIN; eGFR 44 ML/MIN
[2023-06-24 15:21] LABS: BILIRUBIN,URINE NEGATIVE (Neg); CLARITY,URINE SLIGHTLY CLOUDY (Clear); GLUCOSE, URINE NEGATIVE (Neg); KETONES,URINE NEGATIVE (Neg); LEUKOCYTE ESTERASE ,URINE MODERATE (Neg); NITRITES, URINE NEGATIVE (Neg); OCCULT BLOOD,URINE LARGE (Neg); PROTEIN,URINE NEGATIVE (Neg); UROBILINOGEN,URINE 0.2 E.U/dL (0.2-1.0)
[2023-06-24 15:23] LABS: COLOR,URINE DARK YELLOW (Yellow); UA COLLECTION TYPE CLN CATCH MIDSTREAM
[2023-06-24 15:28] LABS: BACTERIA,URINE FEW /HPF (Neg); MUCUS STRANDS NONE SEEN /LPF (Neg); RBC,URINE 50-100 /HPF (0-2); SQUAMOUS EPITHELIAL CELL,UR FEW /LPF (FEW); TRANSITIONAL EPI CELLS,URINE FEW /HPF
[2023-06-24] MEDS ORDERED: TRAM50TA2 PO (16:26)
[2023-06-24] MEDS ORDERED: NITR100C6 PO (16:26)
[2023-06-24] MEDS ORDERED: ONDA-103 PO (16:26)
[2023-06-24 16:35] VITALS: BP 114/79; PULSE 76; RESP 16; TEMP 98.7; O2SAT 99
== END 2023-06-24 16:34 | disposition home or self-care (01) ==
LOC: ER 13:58
DX: N39.0 Urinary tract infection, site not specified (principal); R31.9 Hematuria, unspecified; R53.83 Other fatigue; G43.909 Migraine, unspecified, not intractable, without status migrainosus; J45.909 Unspecified asthma, uncomplicated; E07.9 Disorder of thyroid, unspecified; F32.A Depression, unspecified; F20.9 Schizophrenia, unspecified; Z88.0 Allergy status to penicillin; Z88.2 Allergy status to sulfonamides; Z88.8 Allergy status to other drugs, medicaments and biological substances
CPT/HCPCS: 36415; 80048; 81001; 83690; 85025; 87088; 99283

== ENCOUNTER 2023-06-30 11:20 | Inpatient (IN) | payer MEDICARE, OTHER ==
[~2023-06-30] VITALS: Ht 165.1 cm; Wt 81.4 kg
[~2023-06-30 11:20] MED LIST changes: +NITR100C6 PO; +ONDA-103 PO; +TRAM50TA2 PO
[2023-06-30] MEDS ORDERED: loperamide 2mg capsule PO PRN (12:25)
[2023-06-30] MEDS ORDERED: NICOTINE POLACRILEX 2 MG LOZENGE BC PRN (12:25)
[2023-06-30] MEDS ORDERED: FLUT1BLS12 INH (14:42)
[2023-06-30] MEDS ORDERED: MIRT-87 PO (14:42)
[2023-06-30] MEDS ORDERED: CLON1TAB12 PO (14:42)
[2023-06-30] MEDS ORDERED: ESCI20TA39 PO (14:42)
[2023-06-30] MEDS ORDERED: TOPI25TA49 PO (14:42)
[2023-06-30] MEDS ORDERED: TRAM50TA2 PO (14:42)
[2023-06-30] MEDS ORDERED: HYDR50CA5 PO (14:48)
[2023-06-30] MEDS ORDERED: PRAZ2CAP2 PO (14:48)
[2023-06-30] MEDS ORDERED: BUDE10.22 INH (14:48)
[2023-06-30] MEDS ORDERED: LAMO200T10 PO (14:48)
[2023-06-30] MEDS ORDERED: ROPI2TAB29 PO (14:48)
[2023-06-30] MEDS ORDERED: ONDA4TAB12 PO (14:55)
[2023-06-30] MEDS ORDERED: hydrOXYzine 25 MG tablet PO PRN (16:15)
[2023-06-30 17:48] VITALS: PULSE 73; RESP 16; O2SAT 97
[2023-06-30] MEDS: traMADol 50MG tablet PO PRN (17:57)
[2023-06-30 19:00] VITALS: RESP 17; O2SAT 95
[2023-06-30 20:00] VITALS: BP 149/58; PULSE 78; RESP 17; TEMP 98.2; O2SAT 95
[2023-06-30 20:26] VITALS: PULSE 83; RESP 16; O2SAT 95
[2023-06-30] MEDS: albuterol 2.5 MG/3 ML nebule NEB SCH (20:26)
[2023-06-30] MEDS: budesonide 0.5mg/2ml UD nebule IH SCH (20:26)
[2023-06-30 20:33] VITALS: PULSE 76; RESP 16
[2023-06-30] MEDS: prazosin 1mg capsule PO SCH (20:50)
[2023-06-30] MEDS: mirtazapine 15mg tablet PO SCH (20:50)
[2023-06-30] MEDS: topiramate 25mg tablet PO SCH (20:51)
[2023-06-30] MEDS: acetaminophen 325mg tablet PO PRN (20:51)
[2023-06-30] MEDS: clonazePAM 1mg tablet PO PRN (20:53)
[2023-07-01 07:29] VITALS: BP 133/60; PULSE 71; RESP 12; TEMP 97.7; O2SAT 96
[2023-07-01] MEDS ORDERED: nicotine 21mg patch - 24 hr TD SCH (08:00)
[2023-07-01] MEDS: LEVOMEFOLATE CALCIUM PO SCH (08:00)
[2023-07-01] MEDS: lamoTRIgine 100mg tablet PO SCH (08:19)
[2023-07-01] MEDS: ESCITALOPRAM 10 mg tablet 10 MG TABLET PO SCH (08:19)
[2023-07-01 10:30] LABS: HEMOGLOBIN A1C 5.5 % (4.5-6.2)
[2023-07-01 11:06] LABS: CHOL/HDL RATIO 2.7 (0.00-4.99); CHOLESTEROL 179 MG/DL (0-200); HDL CHOLESTEROL 67 MG/DL (35-60); LDL CHOLESTEROL 94 MG/DL (50-100); TRIGLYCERIDES 35 MG/DL (20-135)
[2023-07-01] MEDS: ROPINIRole 1mg tablet PO SCH (14:56)
[2023-07-01] MEDS: ondansetron 4mg rapidly disintigrating tab PO PRN (17:06)
[2023-07-01] MEDS: acetaminophen 325mg tablet PO PRN (17:08)
[2023-07-01 20:28] VITALS: PULSE 82; RESP 16; O2SAT 97
[2023-07-01 20:29] VITALS: BP 117/55; PULSE 80; RESP 17; TEMP 98.6; O2SAT 91
[2023-07-01 20:33] VITALS: PULSE 79; RESP 16
[2023-07-02 07:33] VITALS: BP 138/57; PULSE 79; RESP 16; TEMP 98.7; O2SAT 95
[2023-07-02 07:59] VITALS: PULSE 91; RESP 14; O2SAT 95
[2023-07-02 08:10] VITALS: PULSE 81; RESP 16
[2023-07-02] MEDS: ESCITALOPRAM 10 mg tablet 10 MG TABLET PO SCH (08:17)
[2023-07-02] MEDS: duloxetine 20mg capsule.DR PO SCH (08:17)
[2023-07-02] MEDS: LIDOcaine 5% patch TP SCH (09:10)
[2023-07-02 14:14] VITALS: PULSE 78; RESP 20; O2SAT 95
[2023-07-02 14:51] VITALS: PULSE 81; RESP 20; O2SAT 92
[2023-07-02 20:00] VITALS: BP 107/55; PULSE 77; RESP 17; TEMP 98.4; O2SAT 97
[2023-07-02] MEDS: cyclobenzaprine 10mg tablet PO ONE (21:08)
[2023-07-03 07:00] VITALS: RESP 16; O2SAT 91
[2023-07-03 07:39] VITALS: PULSE 74; RESP 18; O2SAT 96
[2023-07-03 08:00] VITALS: BP 128/71; PULSE 81; RESP 16; TEMP 97.5; O2SAT 91
[2023-07-03 20:00] VITALS: BP 120/57; PULSE 73; RESP 18; TEMP 98.7; O2SAT 97
[2023-07-03 20:35] VITALS: PULSE 84; RESP 16; O2SAT 98
[2023-07-03 20:46] VITALS: PULSE 84; RESP 16
[2023-07-04 07:00] VITALS: RESP 16; O2SAT 95
[2023-07-04 08:00] VITALS: BP 113/68; PULSE 85; RESP 16; TEMP 97.9
[2023-07-04] MEDS: duloxetine 30mg CAPSULE.DR PO SCH (08:22)
[2023-07-04] MEDS: ESCITALOPRAM 10 mg tablet 10 MG TABLET PO SCH (08:23)
[2023-07-04 08:56] VITALS: PULSE 88; RESP 17; O2SAT 96
[2023-07-04 09:05] VITALS: PULSE 85; RESP 17
[2023-07-04 15:23] VITALS: PULSE 82; RESP 17; O2SAT 97
[2023-07-04 16:20] VITALS: RESP 16
[2023-07-04] MEDS ORDERED: DULO30CA52 PO (17:19)
== END 2023-07-04 19:20 | disposition home or self-care (01) | DRG 885 ==
LOC: ADULT MH 11:20 → UNDOADMIN 11:20 → ADULT MH 12:29 → UNDOADMIN 12:29 → ADULT MH 17:45
PROVIDERS: ADMIT Psychiatry & Neurology Psychiatry; ATTEND Psychiatry & Neurology Psychiatry
PROC: GZHZZZZ Group Psychotherapy (ICD-10-PCS; principal; 2023-07-02)
DX: F33.2 Major depressive disorder, recurrent severe without psychotic features (principal); R45.851 Suicidal ideations; G25.81 Restless legs syndrome; F29 Unspecified psychosis not due to a substance or known physiological condition; E03.9 Hypothyroidism, unspecified; E78.00 Pure hypercholesterolemia, unspecified; F43.10 Post-traumatic stress disorder, unspecified; J45.909 Unspecified asthma, uncomplicated; S30.0XXA Contusion of lower back and pelvis, initial encounter; X58.XXXA Exposure to other specified factors, initial encounter; E11.9 Type 2 diabetes mellitus without complications; K21.9 Gastro-esophageal reflux disease without esophagitis; Z91.041 Radiographic dye allergy status; Z88.5 Allergy status to narcotic agent; Z91.010 Allergy to peanuts; Z88.0 Allergy status to penicillin; Z88.2 Allergy status to sulfonamides; Z88.8 Allergy status to other drugs, medicaments and biological substances; Z91.048 Other nonmedicinal substance allergy status; Z85.528 Personal history of other malignant neoplasm of kidney; Z87.891 Personal history of nicotine dependence; Y93.89 Activity, other specified; Y92.89 Other specified places as the place of occurrence of the external cause; Y99.8 Other external cause status; Z90.5 Acquired absence of kidney
CPT/HCPCS: 36415; 80061; 83036; 87081; 93005; 94640; 94760

== ENCOUNTER 2023-09-03 15:17 | Emergency (ER) | payer MEDICARE, OTHER ==
[~2023-09-03] VITALS: Ht 165.1 cm; Wt 75.9 kg
[~2023-09-03 15:17] MED LIST changes: +BUDE10.22 INH; -CARI3CAP PO; +CLON1TAB12 PO; +DULO30CA52 PO; -ELET40TA10 PO; -ESCI10TA PO; +FLUT1BLS12 INH; -HYDR50CA PO; +HYDR50CA5 PO; +LAMO200T10 PO; -LAMO200T2 PO; +MIRT-87 PO; -NITR100C6 PO; -PRAZ1CAP5 PO; +PRAZ2CAP2 PO; -ROPI1TAB47 PO; +ROPI2TAB29 PO; -ROPI2TAB53 PO; -TOPI50TA PO
[2023-09-03] MEDS ORDERED: TRAM50TA2 PO (16:43)
[2023-09-03] MEDS: traMADol 50MG tablet PO ONE (17:04)
[2023-09-03 17:19] VITALS: BP 112/72; PULSE 65; RESP 17; TEMP 98.9; O2SAT 65
== END 2023-09-03 17:20 | disposition home or self-care (01) ==
LOC: ER 15:18
DX: M79.671 Pain in right foot (principal); G43.909 Migraine, unspecified, not intractable, without status migrainosus; J45.909 Unspecified asthma, uncomplicated; Z88.0 Allergy status to penicillin; Z88.2 Allergy status to sulfonamides; Z88.8 Allergy status to other drugs, medicaments and biological substances; Z91.010 Allergy to peanuts; Z79.899 Other long term (current) drug therapy
CPT/HCPCS: 73630; 99283

== ENCOUNTER 2023-09-22 15:53 | Emergency (ER) | payer MEDICARE, OTHER ==
[~2023-09-22] VITALS: Ht 165.1 cm; Wt 73.2 kg
[2023-09-22 16:05] VITALS: BP 118/57; PULSE 61; RESP 14; TEMP 97.6; O2SAT 96
== END 2023-09-23 02:57 | disposition left against medical advice (07) ==
LOC: ER 15:54
DX: R20.0 Anesthesia of skin (principal); R42 Dizziness and giddiness; R11.0 Nausea; Z53.21 Procedure and treatment not carried out due to patient leaving prior to being seen by health care provider

== ENCOUNTER 2023-10-20 11:59 | Emergency (ER) | payer MEDICARE, OTHER ==
[~2023-10-20] VITALS: Ht 165.1 cm; Wt 78.0 kg
[2023-10-20 12:23] VITALS: BP 143/62; PULSE 69; O2SAT 98
[2023-10-20] MEDS: traMADol 50MG tablet PO ONE (14:40)
[2023-10-20 14:53] VITALS: RESP 16; TEMP 98
== END 2023-10-20 14:55 | disposition home or self-care (01) ==
LOC: ER 11:59
DX: M20.42 Other hammer toe(s) (acquired), left foot (principal); M79.89 Other specified soft tissue disorders; M79.675 Pain in left toe(s); G43.909 Migraine, unspecified, not intractable, without status migrainosus; J45.909 Unspecified asthma, uncomplicated; E08.9 Diabetes mellitus due to underlying condition without complications; F32.A Depression, unspecified; F20.9 Schizophrenia, unspecified; Z98.890 Other specified postprocedural states; Z88.0 Allergy status to penicillin; Z88.2 Allergy status to sulfonamides; Z88.8 Allergy status to other drugs, medicaments and biological substances; Z91.010 Allergy to peanuts; Z91.018 Allergy to other foods; Z79.899 Other long term (current) drug therapy; Z79.51 Long term (current) use of inhaled steroids; Z86.73 Personal history of transient ischemic attack (TIA), and cerebral infarction without residual deficits
CPT/HCPCS: 73660; 99283; L4360

== ENCOUNTER 2023-11-15 18:53 | Emergency (ER) | payer MEDICARE, OTHER ==
[~2023-11-15] VITALS: Ht 165.1 cm; Wt 83.6 kg
[~2023-11-15 18:53] MED LIST changes: +ONDA-243 PO; -ONDA4TAB12 PO
[2023-11-15 18:58] VITALS: TEMP 98.3
[2023-11-15] MEDS: normal saline 1000ml 1,000 ML IV ONE (19:20)
[2023-11-15 19:43] LABS: BILIRUBIN,URINE NEGATIVE (Neg); CLARITY,URINE CLEAR (Clear); COLOR,URINE STRAW (Yellow); GLUCOSE, URINE NEGATIVE (Neg); KETONES,URINE NEGATIVE (Neg); LEUKOCYTE ESTERASE ,URINE NEGATIVE (Neg); NITRITES, URINE NEGATIVE (Neg); OCCULT BLOOD,URINE NEGATIVE (Neg); PROTEIN,URINE NEGATIVE (Neg); UROBILINOGEN,URINE 0.2 E.U/dL (0.2-1.0)
[2023-11-15 19:44] LABS: UA COLLECTION TYPE CLN CATCH MIDSTREAM
[2023-11-15 19:47] LABS: BASOPHILS % (AUTO) 0.9 % (0-1); EOSINOPHILS # (AUTO) 0.4 X10'3 (0-0.9); EOSINOPHILS % (AUTO) 9.3 % (0-6); HEMATOCRIT 30.2 % (35.0-45.0); HEMOGLOBIN 9.6 g/dl (12.0-16.0); LYMPHOCYTES # (AUTO) 1.3 X10'3 (1.1-4.8); LYMPHOCYTES % (AUTO) 26.3 % (21-51); MEAN CORPUSCULAR HEMOGLOBIN 24.6 PG (27.0-31.0); MEAN CORPUSCULAR HGB CONC 31.7 g/dL (33.0-36.5); MEAN CORPUSCULAR VOLUME 77.7 FL (78-98); MEAN PLATELET VOLUME 7.6 FL (7.4-10.4); MONOCYTES # (AUTO) 0.5 X10'3 (0-0.9); MONOCYTES % (AUTO) 11.1 % (2-12); NEUTROPHILS # (AUTO) 2.5 X10'3 (1.8-7.7); NEUTROPHILS % (AUTO) 52.4 % (42-75); PLATELET COUNT 313 X10'3 (140-440); RED BLOOD COUNT 3.88 X10'6 (4.20-5.60); WHITE BLOOD COUNT 4.8 X10'3 (4.5-11.0)
[2023-11-15 20:00] LABS: ALBUMIN 3.3 G/DL (3.4-5.0); ANION GAP 8 (8-16); BLOOD UREA NITROGEN 18 MG/DL (7-18); BUN/CREATININE RATIO 16.1 (10.0-20.0); CALCIUM 8.8 MG/DL (8.5-10.1); CHLORIDE 104 MMOL/L (99-107); CREATININE 1.12 MG/DL (0.40-0.90); GLUCOSE 114 MG/DL (70-104); POTASSIUM 4.3 MMOL/L (3.5-5.1); PRO BRAIN NATRIURETIC PEPTIDE 84 PG/ML (0-125); SODIUM 139 MMOL/L (135-145); TOTAL CARBON DIOXIDE 26.8 MMOL/L (24-32); eCRCL 42 ML/MIN; eGFR 48 ML/MIN
[2023-11-15] MEDS ORDERED: ONDA-243 PO (20:10)
[2023-11-15 20:15] LABS: ANISOCYTOSIS 2+; ELLIPTOCYTES FEW; MICROCYTOSIS 1+; PLATELET ESTIMATE NORMAL; TEAR DROP CELLS FEW
[2023-11-15 21:00] VITALS: BP 121/58; PULSE 71; RESP 12; O2SAT 92
== END 2023-11-15 21:26 | disposition home or self-care (01) ==
LOC: ER 18:53
DX: R53.1 Weakness (principal); R11.0 Nausea; G43.909 Migraine, unspecified, not intractable, without status migrainosus; J45.909 Unspecified asthma, uncomplicated; E03.9 Hypothyroidism, unspecified; F31.9 Bipolar disorder, unspecified; Z88.0 Allergy status to penicillin; Z88.2 Allergy status to sulfonamides; Z88.8 Allergy status to other drugs, medicaments and biological substances; Z91.010 Allergy to peanuts; Z79.899 Other long term (current) drug therapy
CPT/HCPCS: 36415; 71045; 80048; 81003; 83880; 84484; 85008; 85025; 86885; 86900; 86901; 93005; 96360; 99285; J7030

== ENCOUNTER 2023-12-16 18:01 | Inpatient (IN) | payer MEDICARE, OTHER ==
[~2023-12-16] VITALS: Ht 165.1 cm; Wt 95.0 kg
[~2023-12-16 18:01] MED LIST changes: +HYDR-3965 PO
[2023-12-16 19:05] LABS: BASOPHILS % (AUTO) 0.2 % (0-1); EOSINOPHILS % (AUTO) 16.6 % (0-6); HEMATOCRIT 30.2 % (35.0-45.0); HEMOGLOBIN 9.4 g/dl (12.0-16.0); LYMPHOCYTES # (AUTO) 1.2 X10'3 (1.1-4.8); LYMPHOCYTES % (AUTO) 19.1 % (21-51); MEAN CORPUSCULAR HEMOGLOBIN 24.7 PG (27.0-31.0); MEAN CORPUSCULAR VOLUME 79.7 FL (78-98); MEAN PLATELET VOLUME 7.6 FL (7.4-10.4); MONOCYTES # (AUTO) 0.5 X10'3 (0-0.9); MONOCYTES % (AUTO) 8.7 % (2-12); NEUTROPHILS # (AUTO) 3.4 X10'3 (1.8-7.7); NEUTROPHILS % (AUTO) 55.4 % (42-75); PLATELET COUNT 298 X10'3 (140-440); RED BLOOD COUNT 3.79 X10'6 (4.20-5.60); RED CELL DISTRIBUTION WIDTH 20.2 % (11.5-14.5); WHITE BLOOD COUNT 6.1 X10'3 (4.5-11.0)
[2023-12-16 19:24] LABS: ALBUMIN 3.4 G/DL (3.4-5.0); ANION GAP 10 (8-16); BLOOD UREA NITROGEN 21 MG/DL (7-18); BUN/CREATININE RATIO 17.2 (10.0-20.0); CALCIUM 8.9 MG/DL (8.5-10.1); CHLORIDE 103 MMOL/L (99-107); CREATININE 1.22 MG/DL (0.40-0.90); GLUCOSE 93 MG/DL (70-104); POTASSIUM 4.5 MMOL/L (3.5-5.1); PRO BRAIN NATRIURETIC PEPTIDE 108 PG/ML (0-125); SODIUM 141 MMOL/L (135-145); TOTAL CARBON DIOXIDE 27.9 MMOL/L (24-32); eCRCL 42 ML/MIN; eGFR 44 ML/MIN
[2023-12-16 19:52] LABS: ALANINE AMINOTRANSFERASE 23 U/L (12-78); ALBUMIN/GLOBULIN RATIO 0.9 (1.1-1.5); ALKALINE PHOSPHATASE 137 IU/L (46-116); ASPARTATE AMINO TRANSFERASE 15 U/L (10-37); BILIRUBIN,TOTAL 0.2 MG/DL (0.1-1.0)
[2023-12-16] MEDS: ipratropium/albuterol 3ml nebule NEB ONE (20:06)
[2023-12-16 20:08] VITALS: PULSE 74; RESP 14; O2SAT 97
[2023-12-16 20:16] VITALS: PULSE 77; RESP 16; O2SAT 98
[2023-12-16] MEDS ORDERED: doxycycline inj 100 MG in normal saline 100ml IV soln 100 ML IV SCH (21:30)
[2023-12-16] MEDS: albuterol 2.5 MG/3 ML nebule NEB ONE (21:52)
[2023-12-16 21:53] VITALS: PULSE 75; RESP 20; O2SAT 95
[2023-12-16] MEDS ORDERED: OLAN5TAB75 PO (22:05)
[2023-12-16] MEDS ORDERED: MIRT-88 PO (22:05)
[2023-12-16] MEDS ORDERED: TOPI25TA49 PO (22:05)
[2023-12-16 22:06] VITALS: PULSE 79; RESP 20; O2SAT 97
[2023-12-16] MEDS ORDERED: potassium Cl 40MEQ/1/2NS 520ml 520 ML IV PRN (22:20)
[2023-12-16] MEDS ORDERED: ipratropium/albuterol 3ml nebule NEB PRN (22:20)
[2023-12-16] MEDS ORDERED: PERFLUTREN PROTEIN-A MICROSPHR (Optison) 0.22 MG/ML 3ML VIAL IV PRN (22:20)
[2023-12-16] MEDS ORDERED: potassium Cl 20 mEq SR tablet PO PRN ×2 (22:20)
[2023-12-16] MEDS ORDERED: magnesium Cl slow-release 64mg tablet PO PRN (22:20)
[2023-12-16] MEDS ORDERED: magnesium sulf-water 4G/100mL 100 ML IV PRN (22:20)
[2023-12-16] MEDS: methylPREDNISolone sod succ/PF 40mg inj. IV SCH (22:20)
[2023-12-16] MEDS ORDERED: magnesium hydroxide 30ml (MOM) UD suspension PO PRN (22:20)
[2023-12-16] MEDS ORDERED: ondansetron/PF 4mg/2ml inj IV PRN (22:20)
[2023-12-16] MEDS ORDERED: clonazePAM 1mg tablet PO PRN (23:05)
[2023-12-16] MEDS ORDERED: topiramate 25mg tablet PO SCH (23:05)
[2023-12-16] MEDS ORDERED: hydrOXYzine 25 MG tablet PO PRN (23:40)
[2023-12-16] MEDS ORDERED: ondansetron 4mg rapidly disintigrating tab PO PRN (23:45)
[2023-12-17] VITALS (9 sets, daily range): BP systolic 108–152; BP diastolic 42–73; PULSE 82–96; RESP 12–18; TEMP 97.6–98; O2SAT 91–97
[2023-12-17 00:15] LABS: % IRON SATURATION 5 % (11-46); IRON 24 UG/DL (49-151); TOTAL IRON BINDING CAPACITY 486 UG/DL (259-388)
[2023-12-17] MEDS: Melatonin 3mg tablet PO SCH (00:45)
[2023-12-17] MEDS: methylPREDNISolone sod succ 125mg/2ml vial ONE (01:23)
[2023-12-17] MEDS: doxycycline inj 100 MG in normal saline 100ml IV soln 100 ML IV ONE (01:24)
[2023-12-17] MEDS ORDERED: methylPREDNISolone sod succ/PF 40mg inj. IV SCH (02:00)
[2023-12-17 03:04] LABS: BASOPHILS % (AUTO) 0.3 % (0-1); EOSINOPHILS # (AUTO) 0.9 X10'3 (0-0.9); EOSINOPHILS % (AUTO) 16.9 % (0-6); HEMATOCRIT 27.1 % (35.0-45.0); HEMOGLOBIN 8.3 g/dl (12.0-16.0); LYMPHOCYTES # (AUTO) 0.9 X10'3 (1.1-4.8); LYMPHOCYTES % (AUTO) 18.6 % (21-51); MEAN CORPUSCULAR HEMOGLOBIN 24.4 PG (27.0-31.0); MEAN CORPUSCULAR HGB CONC 30.8 g/dL (33.0-36.5); MEAN CORPUSCULAR VOLUME 79.2 FL (78-98); MEAN PLATELET VOLUME 7.6 FL (7.4-10.4); MONOCYTES # (AUTO) 0.3 X10'3 (0-0.9); MONOCYTES % (AUTO) 6.1 % (2-12); NEUTROPHILS # (AUTO) 2.9 X10'3 (1.8-7.7); NEUTROPHILS % (AUTO) 58.1 % (42-75); PLATELET COUNT 247 X10'3 (140-440); RED BLOOD COUNT 3.42 X10'6 (4.20-5.60); WHITE BLOOD COUNT 5.1 X10'3 (4.5-11.0)
[2023-12-17 03:22] LABS: ALANINE AMINOTRANSFERASE 30 U/L (12-78); ALBUMIN 3.2 G/DL (3.4-5.0); ALBUMIN/GLOBULIN RATIO 0.9 (1.1-1.5); ALKALINE PHOSPHATASE 118 IU/L (46-116); ANION GAP 9 (8-16); ASPARTATE AMINO TRANSFERASE 13 U/L (10-37); BILIRUBIN,TOTAL 0.3 MG/DL (0.1-1.0); BLOOD UREA NITROGEN 22 MG/DL (7-18); BUN/CREATININE RATIO 18.3 (10.0-20.0); CALCIUM 8.3 MG/DL (8.5-10.1); CHLORIDE 105 MMOL/L (99-107); GLUCOSE 124 MG/DL (70-104); MAGNESIUM 2.2 MG/DL (1.5-2.4); POTASSIUM 4.2 MMOL/L (3.5-5.1); SODIUM 141 MMOL/L (135-145); TOTAL CARBON DIOXIDE 27.4 MMOL/L (24-32); TOTAL PROTEIN 6.6 G/DL (6.4-8.2); eCRCL 39 ML/MIN; eGFR 44 ML/MIN
[2023-12-17] MEDS: SALMETEROL IH SCH (08:00)
[2023-12-17] MEDS: docusate sod 100mg capsule PO SCH (08:00)
[2023-12-17] MEDS: FLUTICASONE PROPION IH SCH (08:00)
[2023-12-17] MEDS: LEVOMEFOLATE CALCIUM PO SCH (08:00)
[2023-12-17] MEDS: methylPREDNISolone sod succ/PF 40mg inj. IV SCH (08:44)
[2023-12-17] MEDS: heparin, porcine 5000 units/ml vial SQ SCH (08:44)
[2023-12-17] MEDS: lamoTRIgine 100mg tablet PO SCH (08:45)
[2023-12-17] MEDS: duloxetine 30mg CAPSULE.DR PO SCH (08:45)
[2023-12-17] MEDS: budesonide 0.5mg/2ml UD nebule IH SCH (08:59)
[2023-12-17] MEDS: ipratropium/albuterol 3ml nebule NEB PRN (08:59)
[2023-12-17] MEDS ORDERED: ROPINIROLE HCL 2 MG PO SCH ×2 (12:30→14:01)
[2023-12-17] MEDS: acetaminophen 325mg tablet PO PRN (12:55)
[2023-12-17] MEDS: mag hydrox/Alum hydrox/simeth 30ml oral suspension PO PRN (12:58)
[2023-12-17] MEDS ORDERED: ELET40TA10 PO (14:40)
[2023-12-17] MEDS: HYDROcodone/acetaminophen 5mg/325mg tablet PO PRN (17:11)
[2023-12-17] MEDS: albuterol 2.5 MG/3 ML nebule NEB PRN (19:52)
[2023-12-17] MEDS: prazosin 1mg capsule PO SCH (20:10)
[2023-12-17] MEDS: iron sucrose complex injection 500 MG in normal saline 250ml IV soln 250 ML IV ONE (20:10)
[2023-12-17] MEDS: mirtazapine 15mg tablet PO SCH (20:10)
[2023-12-17] MEDS: OLANZAPINE 5 MG TABLET PO SCH (20:11)
[2023-12-18 06:25] VITALS: BP 129/59; PULSE 74; RESP 22; TEMP 98.1; O2SAT 93
[2023-12-18 06:45] LABS: BASOPHILS % (AUTO) 0 % (0-1); EOSINOPHILS % (AUTO) 0 % (0-6); HEMATOCRIT 27.5 % (35.0-45.0); HEMOGLOBIN 8.8 g/dl (12.0-16.0); LYMPHOCYTES # (AUTO) 0.7 X10'3 (1.1-4.8); LYMPHOCYTES % (AUTO) 7.7 % (21-51); MEAN CORPUSCULAR HEMOGLOBIN 24.9 PG (27.0-31.0); MEAN CORPUSCULAR VOLUME 77.8 FL (78-98); MEAN PLATELET VOLUME 7.9 FL (7.4-10.4); MONOCYTES # (AUTO) 0.6 X10'3 (0-0.9); MONOCYTES % (AUTO) 6.5 % (2-12); NEUTROPHILS # (AUTO) 8.2 X10'3 (1.8-7.7); NEUTROPHILS % (AUTO) 85.8 % (42-75); PLATELET COUNT 297 X10'3 (140-440); RED BLOOD COUNT 3.54 X10'6 (4.20-5.60); RED CELL DISTRIBUTION WIDTH 20.1 % (11.5-14.5); WHITE BLOOD COUNT 9.6 X10'3 (4.5-11.0)
[2023-12-18 07:01] LABS: ALANINE AMINOTRANSFERASE 21 U/L (12-78); ALBUMIN 3.1 G/DL (3.4-5.0); ALBUMIN/GLOBULIN RATIO 0.9 (1.1-1.5); ALKALINE PHOSPHATASE 106 IU/L (46-116); ANION GAP 7 (8-16); ASPARTATE AMINO TRANSFERASE 15 U/L (10-37); BILIRUBIN,TOTAL 0.2 MG/DL (0.1-1.0); BLOOD UREA NITROGEN 29 MG/DL (7-18); BUN/CREATININE RATIO 28.7 (10.0-20.0); CHLORIDE 109 MMOL/L (99-107); CREATININE 1.01 MG/DL (0.40-0.90); GLUCOSE 127 MG/DL (70-104); MAGNESIUM 2.3 MG/DL (1.5-2.4); POTASSIUM 4.6 MMOL/L (3.5-5.1); SODIUM 142 MMOL/L (135-145); TOTAL CARBON DIOXIDE 25.8 MMOL/L (24-32); TOTAL PROTEIN 6.6 G/DL (6.4-8.2); eCRCL 47 ML/MIN; eGFR 54 ML/MIN
[2023-12-18 07:27] LABS: PLATELET ESTIMATE NORMAL
[2023-12-18 07:28] LABS: ANISOCYTOSIS 3+; ELLIPTOCYTES 1+; HYPOCHROMASIA 1+; MICROCYTOSIS 1+; POLYCHROMASIA 1+; TEAR DROP CELLS FEW
[2023-12-18] MEDS ORDERED: ELETRIPTAN HBR 40 MG PO PRN (08:00)
[2023-12-18 08:10] VITALS: RESP 18
[2023-12-18 08:26] VITALS: PULSE 77; RESP 18; O2SAT 97
[2023-12-18 08:27] VITALS: PULSE 79; RESP 18
[2023-12-18] MEDS ORDERED: LEVOMEFOLATE CALCIUM PO SCH (09:08)
[2023-12-18] MEDS ORDERED: ROPI2TAB53 PO (09:10)
[2023-12-18 10:00] VITALS: BP 131/63; PULSE 78; RESP 14; TEMP 98.1; O2SAT 94
[2023-12-18] MEDS: ROPINIRole 1mg tablet PO SCH (13:08)
[2023-12-18] MEDS ORDERED: ALBU2.5V7 NEB (13:33)
== END 2023-12-18 17:00 | disposition home or self-care (01) | DRG 189 ==
LOC: ER 18:02 → ED HOLD 22:24 → ORTHO 4S 12-17 08:15
PROVIDERS: ADMIT Internal Medicine Critical Care Medicine; ATTEND Family Medicine
DX: J96.01 Acute respiratory failure with hypoxia (principal); J44.1 Chronic obstructive pulmonary disease with (acute) exacerbation; J45.901 Unspecified asthma with (acute) exacerbation; F32.3 Major depressive disorder, single episode, severe with psychotic features; G43.909 Migraine, unspecified, not intractable, without status migrainosus; G40.909 Epilepsy, unspecified, not intractable, without status epilepticus; E03.9 Hypothyroidism, unspecified; Z20.822 Contact with and (suspected) exposure to COVID-19; D50.9 Iron deficiency anemia, unspecified; N18.30 Chronic kidney disease, stage 3 unspecified; Z85.528 Personal history of other malignant neoplasm of kidney; Z90.5 Acquired absence of kidney; Z88.2 Allergy status to sulfonamides; Z88.8 Allergy status to other drugs, medicaments and biological substances; Z91.041 Radiographic dye allergy status; Z91.010 Allergy to peanuts; Z88.0 Allergy status to penicillin; Z91.014 Allergy to mammalian meats; Z86.73 Personal history of transient ischemic attack (TIA), and cerebral infarction without residual deficits
CPT/HCPCS: 36415; 71045; 80053; 82728; 83540; 83550; 83735; 83880; 84484; 85008; 85025; 87081; 87811; 93005; 93306; 94640; 94760; 97116; 97161; 97530; 99291; 99292; G0378; J1644; J1756; J2919; J3490; J7030; J7050

== ENCOUNTER 2023-12-22 17:37 | Emergency (ER) | payer MEDICARE, OTHER ==
[~2023-12-22] VITALS: Ht 165.1 cm; Wt 93.3 kg
[~2023-12-22 17:37] MED LIST changes: +ALBU2.5V7 NEB; -BUDE10.22 INH; +ELET40TA10 PO; -HYDR-3965 PO; -MIRT-87 PO; +MIRT-88 PO; +OLAN5TAB75 PO; -ONDA-243 PO; -ROPI2TAB29 PO; +ROPI2TAB53 PO; +TOPI25TA49 PO; -TRAM50TA2 PO
[2023-12-22 19:39] VITALS: BP 128/70; PULSE 76; RESP 16; TEMP 98; O2SAT 95
== END 2023-12-22 18:40 | disposition home or self-care (01) ==
LOC: ER 17:38
DX: F32.A Depression, unspecified (principal); R45.851 Suicidal ideations; G43.909 Migraine, unspecified, not intractable, without status migrainosus; J45.909 Unspecified asthma, uncomplicated; E03.9 Hypothyroidism, unspecified; Z88.0 Allergy status to penicillin; Z88.2 Allergy status to sulfonamides; Z79.899 Other long term (current) drug therapy; Z91.010 Allergy to peanuts; Z91.014 Allergy to mammalian meats; Z88.8 Allergy status to other drugs, medicaments and biological substances; Z91.018 Allergy to other foods; Z79.51 Long term (current) use of inhaled steroids; Z86.73 Personal history of transient ischemic attack (TIA), and cerebral infarction without residual deficits; Z98.890 Other specified postprocedural states
CPT/HCPCS: 99284

== ENCOUNTER 2024-01-02 11:10 | Emergency (ER) | payer MEDICARE, OTHER ==
[~2024-01-02] VITALS: Ht 165.1 cm; Wt 90.9 kg
[2024-01-02 11:15] VITALS: BP 166/79; PULSE 100; TEMP 99.5; O2SAT 99
[2024-01-02 11:56] VITALS: RESP 18
== END 2024-01-02 12:12 | disposition home or self-care (01) ==
LOC: ER 11:10
DX: U07.1 COVID-19 (principal); G43.909 Migraine, unspecified, not intractable, without status migrainosus; J45.909 Unspecified asthma, uncomplicated; E03.9 Hypothyroidism, unspecified; F32.A Depression, unspecified; F20.9 Schizophrenia, unspecified; Z88.0 Allergy status to penicillin; Z88.2 Allergy status to sulfonamides; Z88.8 Allergy status to other drugs, medicaments and biological substances; Z91.010 Allergy to peanuts; Z91.018 Allergy to other foods; Z79.899 Other long term (current) drug therapy; Z79.51 Long term (current) use of inhaled steroids; Z86.73 Personal history of transient ischemic attack (TIA), and cerebral infarction without residual deficits; Z98.890 Other specified postprocedural states
CPT/HCPCS: 36415; 87502; 87503; 87811; 99283

== ENCOUNTER 2024-01-23 21:05 | Emergency (ER) | payer MEDICARE, OTHER ==
[~2024-01-23] VITALS: Ht 165.1 cm; Wt 91.1 kg
[2024-01-23 21:30] LABS: BASOPHILS % (AUTO) 0.3 % (0-1); EOSINOPHILS # (AUTO) 0.3 X10'3 (0-0.9); EOSINOPHILS % (AUTO) 5.1 % (0-6); HEMATOCRIT 30.6 % (35.0-45.0); HEMOGLOBIN 9.7 g/dl (12.0-16.0); LYMPHOCYTES % (AUTO) 19.2 % (21-51); MEAN CORPUSCULAR HEMOGLOBIN 26.3 PG (27.0-31.0); MEAN CORPUSCULAR HGB CONC 31.6 g/dL (33.0-36.5); MEAN CORPUSCULAR VOLUME 83.2 FL (78-98); MEAN PLATELET VOLUME 7.7 FL (7.4-10.4); MONOCYTES # (AUTO) 0.4 X10'3 (0-0.9); MONOCYTES % (AUTO) 8.5 % (2-12); NEUTROPHILS # (AUTO) 3.5 X10'3 (1.8-7.7); NEUTROPHILS % (AUTO) 66.9 % (42-75); PLATELET COUNT 234 X10'3 (140-440); RED BLOOD COUNT 3.68 X10'6 (4.20-5.60); RED CELL DISTRIBUTION WIDTH 22.8 % (11.5-14.5); WHITE BLOOD COUNT 5.2 X10'3 (4.5-11.0)
[2024-01-23 21:59] LABS: PLATELET ESTIMATE NORMAL
[2024-01-23 22:00] LABS: ALANINE AMINOTRANSFERASE 21 U/L (12-78); ALBUMIN 3.1 G/DL (3.4-5.0); ALKALINE PHOSPHATASE 93 IU/L (46-116); ANION GAP 5 (8-16); ANISOCYTOSIS 3+; ASPARTATE AMINO TRANSFERASE 16 U/L (10-37); BILIRUBIN,TOTAL 0.3 MG/DL (0.1-1.0); BLOOD UREA NITROGEN 20 MG/DL (7-18); BUN/CREATININE RATIO 14.9 (10.0-20.0); CALCIUM 8.1 MG/DL (8.5-10.1); CHLORIDE 110 MMOL/L (99-107); CREATININE 1.34 MG/DL (0.40-0.90); ELLIPTOCYTES 1+; GLUCOSE 100 MG/DL (70-104); HYPOCHROMASIA 1+; POTASSIUM 3.9 MMOL/L (3.5-5.1); SODIUM 142 MMOL/L (135-145); TEAR DROP CELLS FEW; TOTAL CARBON DIOXIDE 26.7 MMOL/L (24-32); TOTAL PROTEIN 6.2 G/DL (6.4-8.2); eCRCL 35 ML/MIN; eGFR 39 ML/MIN
[2024-01-23 22:03] LABS: PRO BRAIN NATRIURETIC PEPTIDE 36 PG/ML (0-125)
[2024-01-23] MEDS ORDERED: AZIT-164 PO (22:54)
[2024-01-23] MEDS: azithromycin 250mg tablet PO ONE (23:12)
[2024-01-23 23:24] VITALS: BP 101/64; PULSE 72; RESP 20; TEMP 98.6; O2SAT 96
== END 2024-01-23 23:25 | disposition home or self-care (01) ==
LOC: ER 21:06
DX: M94.0 Chondrocostal junction syndrome [Tietze] (principal); J18.9 Pneumonia, unspecified organism; R07.89 Other chest pain; G43.909 Migraine, unspecified, not intractable, without status migrainosus; J45.909 Unspecified asthma, uncomplicated; E03.9 Hypothyroidism, unspecified; F32.A Depression, unspecified; Z88.0 Allergy status to penicillin; Z88.2 Allergy status to sulfonamides; Z79.899 Other long term (current) drug therapy
CPT/HCPCS: 36415; 71045; 80053; 83880; 84484; 85008; 85025; 93005; 99285

== ENCOUNTER 2024-02-02 17:17 | Emergency (ER) | payer MEDICARE, OTHER ==
[~2024-02-02] VITALS: Ht 165.1 cm; Wt 92.7 kg
[2024-02-02 19:12] LABS: ALBUMIN 3.7 G/DL (3.4-5.0); ANION GAP 8 (8-16); BLOOD UREA NITROGEN 17 MG/DL (7-18); BUN/CREATININE RATIO 13.2 (10.0-20.0); CALCIUM 9.1 MG/DL (8.5-10.1); CHLORIDE 104 MMOL/L (99-107); CREATININE 1.29 MG/DL (0.40-0.90); GLUCOSE 89 MG/DL (70-104); POTASSIUM 4.2 MMOL/L (3.5-5.1); PRO BRAIN NATRIURETIC PEPTIDE < 30 PG/ML (0-125); SODIUM 141 MMOL/L (135-145); TOTAL CARBON DIOXIDE 29.2 MMOL/L (24-32); eCRCL 37 ML/MIN; eGFR 41 ML/MIN
[2024-02-02 19:32] LABS: BASOPHILS % (AUTO) 0.2 % (0-1); EOSINOPHILS # (AUTO) 0.4 X10'3 (0-0.9); EOSINOPHILS % (AUTO) 7.6 % (0-6); HEMATOCRIT 35.6 % (35.0-45.0); HEMOGLOBIN 11.3 g/dl (12.0-16.0); LYMPHOCYTES # (AUTO) 1.5 X10'3 (1.1-4.8); LYMPHOCYTES % (AUTO) 30.4 % (21-51); MEAN CORPUSCULAR HEMOGLOBIN 26.5 PG (27.0-31.0); MEAN CORPUSCULAR HGB CONC 31.7 g/dL (33.0-36.5); MEAN CORPUSCULAR VOLUME 83.6 FL (78-98); MEAN PLATELET VOLUME 7.4 FL (7.4-10.4); MONOCYTES # (AUTO) 0.6 X10'3 (0-0.9); MONOCYTES % (AUTO) 11.2 % (2-12); NEUTROPHILS # (AUTO) 2.6 X10'3 (1.8-7.7); NEUTROPHILS % (AUTO) 50.6 % (42-75); PLATELET COUNT 238 X10'3 (140-440); RED BLOOD COUNT 4.26 X10'6 (4.20-5.60); RED CELL DISTRIBUTION WIDTH 22.5 % (11.5-14.5); WHITE BLOOD COUNT 5.1 X10'3 (4.5-11.0)
[2024-02-02 20:25] LABS: D-DIMER 0.95 MG/L FEU (0-0.50)
[2024-02-02 21:06] LABS: ANISOCYTOSIS 3+; PLATELET ESTIMATE NORMAL
[2024-02-02 21:07] LABS: ELLIPTOCYTES FEW
[2024-02-02] MEDS: diphenhydrAMINE 50 mg/ml inj IV ONE (21:08)
[2024-02-02] MEDS: acetaminophen 325mg tablet PO ONE (21:08)
[2024-02-02] MEDS: normal saline 1000ML IV soln IVB ONE (21:08)
[2024-02-02] MEDS ORDERED: iohexol 350MG/ML 100ml bottle IV ONE (21:29)
[2024-02-02] MEDS ORDERED: LEVO-65 PO (22:46)
[2024-02-02] MEDS ORDERED: PRED20TA PO (22:46)
[2024-02-02] MEDS: predniSONE 20 mg tablet PO ONE (22:48)
[2024-02-02] MEDS: levoFLOXACIN 250mg tablet PO ONE (22:48)
[2024-02-02 22:56] VITALS: BP 131/61; PULSE 66; RESP 17; TEMP 98.5; O2SAT 94
== END 2024-02-02 22:58 | disposition home or self-care (01) ==
LOC: ER 17:18
DX: J44.9 Chronic obstructive pulmonary disease, unspecified (principal); R06.00 Dyspnea, unspecified; G43.909 Migraine, unspecified, not intractable, without status migrainosus; E03.9 Hypothyroidism, unspecified; F20.9 Schizophrenia, unspecified; Z88.0 Allergy status to penicillin; Z88.2 Allergy status to sulfonamides; Z79.899 Other long term (current) drug therapy; Z86.73 Personal history of transient ischemic attack (TIA), and cerebral infarction without residual deficits
CPT/HCPCS: 36415; 71046; 71275; 80048; 83605; 83880; 85008; 85025; 85379; 87040; 96374; 99285; J1200; J7030; J7050; J7512; Q9967

== ENCOUNTER 2024-02-23 12:50 | Emergency (ER) | payer MEDICARE, OTHER ==
[~2024-02-23] VITALS: Ht 165.1 cm; Wt 94.5 kg
[2024-02-23] MEDS ORDERED: LIDO700A32 TOP (14:21)
[2024-02-23] MEDS ORDERED: CYCL-1 PO (14:21)
[2024-02-23] MEDS: dexamethasone sod phosphate 10mg/ml inj IM STA (14:41)
[2024-02-23] MEDS: ondansetron 4mg rapidly disintigrating tab PO ONE (14:41)
[2024-02-23] MEDS: cyclobenzaprine 10mg tablet PO ONE (14:41)
[2024-02-23] MEDS: HYDROcodone/acetaminophen 5mg/325mg tablet PO ONE (14:41)
[2024-02-23 14:48] VITALS: BP 132/76; PULSE 76; RESP 18; TEMP 97.6; O2SAT 96
[2024-02-24] MEDS ORDERED: LIDOcaine 5% patch TP SCH (08:00)
== END 2024-02-23 14:51 | disposition home or self-care (01) ==
LOC: ER 12:50
DX: M54.32 Sciatica, left side (principal); E03.9 Hypothyroidism, unspecified; F20.9 Schizophrenia, unspecified; J45.909 Unspecified asthma, uncomplicated; Z88.0 Allergy status to penicillin; Z88.2 Allergy status to sulfonamides; Z88.5 Allergy status to narcotic agent; Z88.8 Allergy status to other drugs, medicaments and biological substances; Z91.041 Radiographic dye allergy status; Z79.899 Other long term (current) drug therapy; Z86.73 Personal history of transient ischemic attack (TIA), and cerebral infarction without residual deficits
CPT/HCPCS: 72100; 73502; 96372; 99284; J1100

== ENCOUNTER 2024-03-12 09:42 | Emergency (ER) | payer MEDICARE, OTHER ==
[~2024-03-12] VITALS: Ht 165.1 cm; Wt 94.5 kg
[~2024-03-12 09:42] MED LIST changes: +CYCL-1 PO; +LIDO700A32 TOP
[2024-03-12] MEDS ORDERED: ACET-3068 PO (10:34)
[2024-03-12 10:47] VITALS: BP 138/76; PULSE 74; RESP 16; TEMP 97.7; O2SAT 98
== END 2024-03-12 10:49 | disposition home or self-care (01) ==
LOC: ER 09:43
DX: M19.042 Primary osteoarthritis, left hand (principal); J45.909 Unspecified asthma, uncomplicated; E03.9 Hypothyroidism, unspecified; F20.9 Schizophrenia, unspecified; G43.909 Migraine, unspecified, not intractable, without status migrainosus; F32.A Depression, unspecified; Z88.0 Allergy status to penicillin; Z88.2 Allergy status to sulfonamides; Z88.8 Allergy status to other drugs, medicaments and biological substances; Z91.010 Allergy to peanuts; Z91.018 Allergy to other foods; Z79.899 Other long term (current) drug therapy; Z86.73 Personal history of transient ischemic attack (TIA), and cerebral infarction without residual deficits; Z98.890 Other specified postprocedural states
CPT/HCPCS: 29125; 73130; 99283

== ENCOUNTER 2024-04-03 17:09 | Emergency (ER) | payer MEDICARE, OTHER ==
[~2024-04-03] VITALS: Ht 165.1 cm; Wt 95.4 kg
[~2024-04-03 17:09] MED LIST changes: +ACET-3068 PO
[2024-04-03] MEDS ORDERED: MECL-302 PO (20:47)
[2024-04-03] MEDS ORDERED: TRAM50TA2 PO (20:47)
[2024-04-03] MEDS: HYDROcodone/acetaminophen 5mg/325mg tablet PO STA (20:50)
[2024-04-03] MEDS: meclizine 12.5mg tablet PO STA (20:50)
[2024-04-03 20:52] VITALS: BP 118/64; PULSE 70; RESP 16; TEMP 97.2; O2SAT 99
== END 2024-04-03 21:04 | disposition home or self-care (01) ==
LOC: ER 17:10
DX: M25.551 Pain in right hip (principal); M54.50 Low back pain, unspecified; M25.511 Pain in right shoulder; J45.909 Unspecified asthma, uncomplicated; F20.9 Schizophrenia, unspecified; E03.9 Hypothyroidism, unspecified; F32.A Depression, unspecified; G43.909 Migraine, unspecified, not intractable, without status migrainosus; Z86.73 Personal history of transient ischemic attack (TIA), and cerebral infarction without residual deficits; Z88.0 Allergy status to penicillin; Z88.2 Allergy status to sulfonamides; Z88.6 Allergy status to analgesic agent; Z88.8 Allergy status to other drugs, medicaments and biological substances; Z91.014 Allergy to mammalian meats; Z91.010 Allergy to peanuts; Z91.018 Allergy to other foods; Z79.52 Long term (current) use of systemic steroids; Z79.899 Other long term (current) drug therapy; W01.0XXA Fall on same level from slipping, tripping and stumbling without subsequent striking against object, initial encounter; Y93.89 Activity, other specified; Y92.89 Other specified places as the place of occurrence of the external cause; Y99.8 Other external cause status
CPT/HCPCS: 72131; 73030; 73130; 73521; 99284; J8597

== ENCOUNTER 2024-05-03 12:36 | Emergency (ER) | payer MEDICARE, OTHER ==
[~2024-05-03] VITALS: Ht 165.1 cm; Wt 95.3 kg
[~2024-05-03 12:36] MED LIST changes: -ACET-3068 PO; +MECL-302 PO; +TRAM50TA2 PO
[2024-05-03 14:26] LABS: BASOPHILS % (AUTO) 0.2 % (0-1); EOSINOPHILS # (AUTO) 0.5 X10'3 (0-0.9); EOSINOPHILS % (AUTO) 9.4 % (0-6); HEMATOCRIT 37.3 % (35.0-45.0); LYMPHOCYTES # (AUTO) 1.1 X10'3 (1.1-4.8); LYMPHOCYTES % (AUTO) 19.6 % (21-51); MEAN CORPUSCULAR HEMOGLOBIN 28.2 PG (27.0-31.0); MEAN CORPUSCULAR HGB CONC 32.3 g/dL (33.0-36.5); MEAN CORPUSCULAR VOLUME 87.4 FL (78-98); MEAN PLATELET VOLUME 7.8 FL (7.4-10.4); MONOCYTES # (AUTO) 0.6 X10'3 (0-0.9); MONOCYTES % (AUTO) 11.1 % (2-12); NEUTROPHILS # (AUTO) 3.4 X10'3 (1.8-7.7); NEUTROPHILS % (AUTO) 59.7 % (42-75); PLATELET COUNT 273 X10'3 (140-440); RED BLOOD COUNT 4.27 X10'6 (4.20-5.60); RED CELL DISTRIBUTION WIDTH 16.7 % (11.5-14.5); WHITE BLOOD COUNT 5.7 X10'3 (4.5-11.0)
[2024-05-03 14:41] LABS: ALANINE AMINOTRANSFERASE 19 U/L (12-78); ALBUMIN 3.5 G/DL (3.4-5.0); ALBUMIN/GLOBULIN RATIO 0.9 (1.1-1.5); ALKALINE PHOSPHATASE 122 IU/L (46-116); ANION GAP 5 (8-16); ASPARTATE AMINO TRANSFERASE 13 U/L (10-37); BILIRUBIN,TOTAL 0.3 MG/DL (0.1-1.0); BLOOD UREA NITROGEN 19 MG/DL (7-18); BUN/CREATININE RATIO 15.8 (10.0-20.0); CALCIUM 9.2 MG/DL (8.5-10.1); CHLORIDE 104 MMOL/L (99-107); GLUCOSE 99 MG/DL (70-104); POTASSIUM 5.2 MMOL/L (3.5-5.1); SODIUM 139 MMOL/L (135-145); TOTAL CARBON DIOXIDE 29.7 MMOL/L (24-32); TOTAL PROTEIN 7.2 G/DL (6.4-8.2); eCRCL 39 ML/MIN; eGFR 44 ML/MIN
[2024-05-03] MEDS: ipratropium/albuterol 3ml nebule NEB ONE (15:03)
[2024-05-03 15:05] VITALS: PULSE 74; RESP 20; O2SAT 98
[2024-05-03 15:09] VITALS: PULSE 72; RESP 20; O2SAT 98
[2024-05-03] MEDS: ipratropium/albuterol 3ml nebule ONE (16:20)
[2024-05-03] MEDS: predniSONE 20 mg tablet PO ONE (17:00)
[2024-05-03 17:09] LABS: PRO BRAIN NATRIURETIC PEPTIDE 64 PG/ML (0-125)
[2024-05-03] MEDS ORDERED: CEFU500T66 PO (17:31)
[2024-05-03] MEDS ORDERED: PRED20TA PO (17:31)
[2024-05-03] MEDS ORDERED: DOXY-1 PO (17:31)
[2024-05-03] MEDS ORDERED: cefuroxime axetil 250mg tablet PO SCH (17:35)
[2024-05-03] MEDS: DOXYCYCLINE 100MG CAPSULE PO STA (17:48)
[2024-05-03] MEDS: cefuroxime axetil 250mg tablet PO ONE (17:48)
[2024-05-03 18:01] VITALS: BP 156/70; PULSE 64; RESP 17; TEMP 97.5; O2SAT 99
== END 2024-05-03 18:04 | disposition home or self-care (01) ==
LOC: ER 12:36
DX: J20.9 Acute bronchitis, unspecified (principal); J44.1 Chronic obstructive pulmonary disease with (acute) exacerbation; E87.5 Hyperkalemia; E86.0 Dehydration; E03.9 Hypothyroidism, unspecified; F20.9 Schizophrenia, unspecified; F32.A Depression, unspecified; G43.909 Migraine, unspecified, not intractable, without status migrainosus; J45.909 Unspecified asthma, uncomplicated; Z98.890 Other specified postprocedural states; Z86.73 Personal history of transient ischemic attack (TIA), and cerebral infarction without residual deficits; Z88.0 Allergy status to penicillin; Z88.2 Allergy status to sulfonamides; Z88.8 Allergy status to other drugs, medicaments and biological substances; Z88.5 Allergy status to narcotic agent; Z79.52 Long term (current) use of systemic steroids; Z79.899 Other long term (current) drug therapy
CPT/HCPCS: 36415; 71045; 80053; 83880; 84484; 85025; 93005; 94640; 99285; J7512; 94760

== ENCOUNTER 2024-05-19 08:26 | Emergency (ER) | payer MEDICARE, OTHER ==
[~2024-05-19] VITALS: Ht 165.1 cm; Wt 106.3 kg
[~2024-05-19 08:26] MED LIST changes: +CEFU500T66 PO
[2024-05-19] MEDS ORDERED: HYDR-3972 PO (09:28)
[2024-05-19] MEDS ORDERED: CEPH-585 PO (09:28)
[2024-05-19] MEDS ORDERED: VALA10002 PO (09:28)
[2024-05-19 09:57] VITALS: BP 108/78; PULSE 91; RESP 16; TEMP 98.2; O2SAT 94
== END 2024-05-19 09:58 | disposition home or self-care (01) ==
LOC: ER 08:26
DX: M25.522 Pain in left elbow (principal); L53.8 Other specified erythematous conditions; J45.909 Unspecified asthma, uncomplicated; E03.9 Hypothyroidism, unspecified; F20.9 Schizophrenia, unspecified; G43.909 Migraine, unspecified, not intractable, without status migrainosus; F32.A Depression, unspecified; Z86.73 Personal history of transient ischemic attack (TIA), and cerebral infarction without residual deficits; Z98.890 Other specified postprocedural states; Z88.0 Allergy status to penicillin; Z88.2 Allergy status to sulfonamides; Z88.8 Allergy status to other drugs, medicaments and biological substances; Z79.899 Other long term (current) drug therapy; Z91.010 Allergy to peanuts; Z91.014 Allergy to mammalian meats; Z91.018 Allergy to other foods
CPT/HCPCS: 73130; 99283

== ENCOUNTER 2024-05-22 17:01 | Emergency (ER) | payer MEDICARE, OTHER ==
[~2024-05-22] VITALS: Ht 165.1 cm; Wt 106.2 kg
[~2024-05-22 17:01] MED LIST changes: +CEPH-585 PO; +HYDR-3972 PO; +VALA10002 PO
[2024-05-22 18:00] VITALS: TEMP 98
[2024-05-22] MEDS ORDERED: LIDO700A32 TD (18:34)
[2024-05-22] MEDS ORDERED: ACET650T2 PO (18:34)
[2024-05-22] MEDS ORDERED: CYCL-1 PO (18:34)
[2024-05-22 18:44] VITALS: BP 120/40; PULSE 80; RESP 16; O2SAT 93
[2024-05-22] MEDS: LIDOcaine 5% patch TP STA (19:03)
== END 2024-05-22 19:06 | disposition home or self-care (01) ==
LOC: ER 17:02
DX: M54.32 Sciatica, left side (principal); J45.909 Unspecified asthma, uncomplicated; G43.909 Migraine, unspecified, not intractable, without status migrainosus; E03.9 Hypothyroidism, unspecified; F31.9 Bipolar disorder, unspecified; F20.9 Schizophrenia, unspecified; Z86.73 Personal history of transient ischemic attack (TIA), and cerebral infarction without residual deficits; Z88.0 Allergy status to penicillin; Z88.2 Allergy status to sulfonamides; Z88.5 Allergy status to narcotic agent; Z88.6 Allergy status to analgesic agent; Z88.1 Allergy status to other antibiotic agents; Z88.8 Allergy status to other drugs, medicaments and biological substances; Z98.890 Other specified postprocedural states
CPT/HCPCS: 73502; 99283

== ENCOUNTER 2024-06-02 22:10 | Emergency (ER) | payer MEDICARE, OTHER ==
[~2024-06-02] VITALS: Ht 165.1 cm; Wt 105.6 kg
[~2024-06-02 22:10] MED LIST changes: +ACET650T2 PO; -CEPH-585 PO; -HYDR-3972 PO; +LIDO700A32 TD
[2024-06-02 22:13] VITALS: BP 182/53; PULSE 82; RESP 16; O2SAT 94
[2024-06-02 23:18] VITALS: TEMP 98.4
== END 2024-06-02 23:19 | disposition home or self-care (01) ==
LOC: ER 22:11
DX: R45.851 Suicidal ideations (principal); F20.9 Schizophrenia, unspecified; F41.9 Anxiety disorder, unspecified; J45.909 Unspecified asthma, uncomplicated; E03.9 Hypothyroidism, unspecified; G43.909 Migraine, unspecified, not intractable, without status migrainosus; F32.A Depression, unspecified; Z86.73 Personal history of transient ischemic attack (TIA), and cerebral infarction without residual deficits; Z98.890 Other specified postprocedural states; Z91.041 Radiographic dye allergy status; Z88.0 Allergy status to penicillin; Z88.2 Allergy status to sulfonamides; Z88.8 Allergy status to other drugs, medicaments and biological substances; Z88.6 Allergy status to analgesic agent; Z91.010 Allergy to peanuts; Z91.014 Allergy to mammalian meats; Z91.018 Allergy to other foods; Z79.899 Other long term (current) drug therapy; Z79.52 Long term (current) use of systemic steroids
CPT/HCPCS: 99281

== ENCOUNTER 2024-06-08 13:39 | Emergency (ER) | payer MEDICARE, OTHER ==
[~2024-06-08] VITALS: Ht 165.1 cm; Wt 94.2 kg
[2024-06-08 13:55] VITALS: TEMP 98
[2024-06-08] MEDS: ondansetron 4mg rapidly disintigrating tab PO STA (17:07)
[2024-06-08] MEDS: HYDROcodone/acetaminophen 5mg/325mg tablet PO STA (17:08)
[2024-06-08 19:01] VITALS: BP 154/80; PULSE 79; RESP 18; O2SAT 96
== END 2024-06-08 19:04 | disposition home or self-care (01) ==
LOC: ER 13:40
DX: S62.606A Fracture of unspecified phalanx of right little finger, initial encounter for closed fracture (principal); E03.9 Hypothyroidism, unspecified; F20.9 Schizophrenia, unspecified; J45.909 Unspecified asthma, uncomplicated; F31.9 Bipolar disorder, unspecified; Z86.73 Personal history of transient ischemic attack (TIA), and cerebral infarction without residual deficits; Z88.0 Allergy status to penicillin; Z88.1 Allergy status to other antibiotic agents; Z88.2 Allergy status to sulfonamides; Z88.5 Allergy status to narcotic agent; Z91.041 Radiographic dye allergy status; Z88.8 Allergy status to other drugs, medicaments and biological substances; Z98.890 Other specified postprocedural states; W19.XXXA Unspecified fall, initial encounter; Y93.89 Activity, other specified; Y92.89 Other specified places as the place of occurrence of the external cause; Y99.8 Other external cause status
CPT/HCPCS: 70450; 73140; 99284

== ENCOUNTER 2024-07-04 13:26 | Emergency (ER) | payer MEDICARE, OTHER ==
[~2024-07-04] VITALS: Ht 165.1 cm; Wt 104.5 kg
[~2024-07-04 13:26] MED LIST changes: -ACET650T2 PO
[2024-07-04] MEDS ORDERED: METH-797 PO (15:31)
[2024-07-04] MEDS: cyclobenzaprine 10mg tablet PO ONE (15:44)
[2024-07-04 15:46] VITALS: BP 134/86; PULSE 84; RESP 16; TEMP 98.8; O2SAT 98
== END 2024-07-04 15:48 | disposition home or self-care (01) ==
LOC: ER 13:27
DX: S16.1XXA Strain of muscle, fascia and tendon at neck level, initial encounter (principal); S09.90XA Unspecified injury of head, initial encounter; J45.909 Unspecified asthma, uncomplicated; F20.9 Schizophrenia, unspecified; E03.9 Hypothyroidism, unspecified; Z86.73 Personal history of transient ischemic attack (TIA), and cerebral infarction without residual deficits; Z88.0 Allergy status to penicillin; Z88.1 Allergy status to other antibiotic agents; Z88.2 Allergy status to sulfonamides; Z88.5 Allergy status to narcotic agent; Z88.8 Allergy status to other drugs, medicaments and biological substances; Z91.041 Radiographic dye allergy status; X50.1XXA Overexertion from prolonged static or awkward postures, initial encounter
CPT/HCPCS: 70450; 72040; 72125; 99284; L0172

== ENCOUNTER 2024-08-04 18:21 | Emergency (ER) | payer MEDICARE, OTHER ==
[~2024-08-04] VITALS: Ht 165.1 cm; Wt 107.5 kg
[~2024-08-04 18:21] MED LIST changes: +ACET-1025 PO; +ALBU2.5V7 INH; -ALBU2.5V7 NEB; +BUSP10TA10 PO; +BUSP10TA11 PO; -CEFU500T66 PO; -CYCL-1 PO; +DIPH25CA83 PO; -FLUT1BLS12 INH; +FLUT1BLS9 INH; +LEMB5TAB PO; -LIDO700A32 TD; -LIDO700A32 TOP; -MECL-302 PO; +MELA10TA2 PO; +OLAN10TA21 PO; -OLAN5TAB75 PO; +TOPI-255 PO; -TOPI25TA49 PO; -TRAM50TA2 PO; -VALA10002 PO
[2024-08-04 18:26] VITALS: BP 154/72; PULSE 89; O2SAT 94
[2024-08-04 20:58] VITALS: RESP 16
[2024-08-04] MEDS: HYDROcodone/acetaminophen 5mg/325mg tablet PO ONE (20:58)
[2024-08-04] MEDS: ondansetron 4mg rapidly disintigrating tab PO ONE (20:59)
[2024-08-04] MEDS ORDERED: ONDA-243 PO (21:51)
[2024-08-04] MEDS ORDERED: HYDR-3972 PO (21:51)
[2024-08-04 21:57] VITALS: TEMP 97.8
== END 2024-08-04 21:58 | disposition home or self-care (01) ==
LOC: ER 18:22
DX: M25.461 Effusion, right knee (principal); T84.84XA Pain due to internal orthopedic prosthetic devices, implants and grafts, initial encounter; M25.551 Pain in right hip; M25.512 Pain in left shoulder; M25.571 Pain in right ankle and joints of right foot; E03.9 Hypothyroidism, unspecified; F20.9 Schizophrenia, unspecified; J45.909 Unspecified asthma, uncomplicated; Z86.73 Personal history of transient ischemic attack (TIA), and cerebral infarction without residual deficits; Z88.0 Allergy status to penicillin; Z88.1 Allergy status to other antibiotic agents; Z88.2 Allergy status to sulfonamides; Z88.5 Allergy status to narcotic agent; Z91.041 Radiographic dye allergy status; Z88.8 Allergy status to other drugs, medicaments and biological substances; W18.30XA Fall on same level, unspecified, initial encounter; Y93.89 Activity, other specified; Y92.89 Other specified places as the place of occurrence of the external cause; Y99.8 Other external cause status
CPT/HCPCS: 73030; 73502; 73552; 73564; 73610; 99284